=== PATIENT | male | born 1945 | race Caucasian/White ===

== ENCOUNTER 2020-04-04 15:26 | Emergency (ER) | payer MEDICARE, OTHER ==
--- NOTE | 2020-04-04 16:14 | REP ---
INDICATION: Altered Mental Status. COMPARISON: 10/31/2005. TECHNIQUE: SINGLE PORTABLE AP VIEW OF THE CHEST WAS PERFORMED. FINDINGS: Mild bibasilar interstitial opacities may represent mild fibrotic change or interstitial edema. No consolidating infiltrate is seen. There is mild cardiomegaly. Mediastinal silhouette is unremarkable with mild calcification of the thoracic aorta. There are multiple sternal wires present. Left pacemaker is noted. IMPRESSION: Mild bibasilar interstitial fibrotic change versus edema. <Electronically signed by Wayne Collier > 04/04/20 [id number]
[2020-04-04 16:15] LABS: BASO % 0.2 % (0.0-1.0); HEMATOCRIT 30.8 % (42.0-52.0); LYMPH # 0.6 10^3/uL (1.5-5.0); LYMPH % 2.5 % (24.0-44.0); MEAN CORPUSCULAR HEMOGLOBIN 30.7 pg (27.0-33.0); MEAN CORPUSCULAR HGB CONC 32.5 g/dl (32.0-36.5); MEAN CORPUSCULAR VOLUME 94.5 fl (80.0-96.0); MONO # 1.6 10^3/uL (0.0-0.8); MONO % 6.7 % (0.0-5.0); NEUTROPHILS # 21.5 10^3/uL (1.5-8.5); NEUTROPHILS % 89.8 % (36.0-66.0); PLATELET COUNT, AUTOMATED 171 10^3/uL (150-450); RED BLOOD COUNT 3.26 10^6/uL (4.30-6.10)
--- NOTE | 2020-04-04 16:18 | REP ---
INDICATION: altered loc. COMPARISON: None. TECHNIQUE: Helical scanning is acquired. 5 mm axial images were reformatted. Coronal MPR images were generated. FINDINGS: Bone window settings demonstrate an intact bony calvarium. There is no evidence of skull fracture or incidental bony calvarial lesion. The visualized paranasal sinuses appear clear. No intraorbital abnormality is seen. On soft tissue window setting images; the lateral, third, and fourth ventricles are normal in size and position. Collier-white differentiation pattern is normal above and below the tentorium. There are is no evidence of intracranial hemorrhage. No mass, edema, infarction, or midline shift is seen. No extra-axial fluid collection is appreciated. There is mild vascular calcification in the carotid siphons bilaterally. Mild generalized volume loss is observed. IMPRESSION: Mild volume loss and vascular calcification. Otherwise negative CT brain without contrast. No acute intracranial abnormality. <Electronically signed by Francis Roberts > 04/04/20 2405
[2020-04-04 16:19] LABS: ABG BASE EXCESS -5.6 (-2.0-2.0); ABG HCO3 17.3 MEQ/L (22.0-26.0); ABG O2 SATURATION 99.5 % (95.0-99.0); ABG PARTIAL PRESSURE CO2 26.3 mmHg (35.0-45.0); ABG STANDARD HCO3 19.9 MEQ/L (22.0-26.0); ABG TOTAL CO2 18.1 MEQ/L (23.0-31.0); ABG pH (ARTERIAL) 7.437 UNITS (7.350-7.450)
[2020-04-04 16:36] LABS: ACETAMINOPHEN LEVEL 4.9 UG/ML (10.0-30.0); ALBUMIN 2.8 GM/DL (3.2-5.2); ALT/SGPT 600 U/L (12-78); BILIRUBIN,DIRECT 2.1 MG/DL (0.0-0.2); BILIRUBIN,TOTAL 2.5 MG/DL (0.2-1.0); BLOOD UREA NITROGEN 50 MG/DL (7-18); CALCIUM LEVEL 8.5 MG/DL (8.8-10.2); CARBON DIOXIDE LEVEL 20 MEQ/L (21-32); CHLORIDE LEVEL 105 MEQ/L (98-107); CK-MB VALUE MASS < 1.0 NG/ML (<3.6); CPK CREATINE PHOSPHOKINASE 63 U/L (39-308); CREATININE FOR GFR 2.11 MG/DL (0.70-1.30); ETHYL ALCOHOL (ETHANOL) < 0.003 % (0.000-0.010); GLOMERULAR FILTRATION RATE 32.9 (>42); GLUCOSE, FASTING 135 MG/DL (70-100); MB/CK RELATIVE INDEX 1.59 (< OR =4); POTASSIUM SERUM 3.5 MEQ/L (3.5-5.1); SALICYLATE LEVEL < 1.7 MG/DL (5.0-30.0); SODIUM LEVEL 139 MEQ/L (136-145); TOTAL PROTEIN 5.5 GM/DL (6.4-8.2); TROPONIN I < 0.02 NG/ML (< 0.10)
[2020-04-04] MEDS ORDERED: CEFEPIME HCL 2 GM in D5W MINI-BAG PLUS 50 ML IV ONE (16:45)
[2020-04-04] MEDS ORDERED: NS 1,000 ML IV ONE (16:45)
[2020-04-04] MEDS ORDERED: LIDOCAINE 2% 5ML JELLY UROJET TOP ONE (16:45)
[2020-04-04] MEDS ORDERED: METF10004 PO (16:48)
[2020-04-04] MEDS ORDERED: TORS20TA2 PO ×2 (16:48)
[2020-04-04] MEDS ORDERED: SPIR-10 PO (16:48)
[2020-04-04] MEDS ORDERED: MAGN400T2 PO (16:48)
[2020-04-04] MEDS ORDERED: ATOR40TA75 PO (16:48)
[2020-04-04] MEDS ORDERED: ELIQ5TAB PO (16:48)
[2020-04-04] MEDS ORDERED: POTA20TA6 PO (16:48)
[2020-04-04] MEDS ORDERED: CARV12.5 PO (16:48)
[2020-04-04] MEDS ORDERED: ENTR1TAB PO ×2 (16:48)
[2020-04-04] MEDS ORDERED: NITR0.4S14 SL (16:48)
[2020-04-04 16:56] LABS: LIPASE 66 U/L (73-393)
[2020-04-04] MEDS ORDERED: NOREPINEPHRINE BITARTRATE 8 MG in D5W 492 ML IV SCH ×2 (17:55→18:28)
[2020-04-04] MEDS ORDERED: NS 3,060 ML in IV 1 EA IV ONE (18:00)
[2020-04-04] MEDS ORDERED: DOBUTamine 500 MG/250 ML BAG IN D5W (2,000 MCG/ML) (J1250) As Ordered ONE (18:08)
[2020-04-04 18:14] LABS: INR 2.42; PROTHROMBIN TIME 26.9 SECONDS (12.5-14.3)
[2020-04-04] MEDS ORDERED: DOBUTamine HCL 500,000 MCG in IV 1 EA IV SCH (18:15)
[2020-04-04] MEDS ORDERED: ASPI81TA26 PO (19:09)
--- NOTE | 2020-04-04 19:48 | REPVR ---
PROCEDURE INFORMATION: Exam: US Abdomen, Limited; Right Upper Quadrant Exam date and time: 04/04/2020 7:36 PM Age: 74 years old Clinical indication: Abdominal pain; Acute; Additional info: Ruq pain TECHNIQUE: Imaging protocol: US abdomen. Real time ultrasound with image documentation. Limited exam focused on the right upper quadrant. COMPARISON: No relevant prior studies available. FINDINGS: Liver: Normal. No masses. Gallbladder: 5 mm echogenic demonstrated on the mucosal surface of the gallbladder near the fundus. Finding may represent a cholesterol polyp or adherent calculus. Mild gallbladder wall thickening. Sludge demonstrated dependently within the gallbladder. Common bile duct: The common bile duct measures six mm. No mass or choledocholithiasis. Pancreas: Obscured by overlying bowel gas. Right kidney: Right kidney measures 12.8 x 6.1 x 6.6 cm. IMPRESSION: 1. 5 mm echogenic demonstrated on the mucosal surface of the gallbladder near the fundus. Finding may represent a cholesterol polyp or adherent calculus. Mild gallbladder wall thickening. Sludge demonstrated within the gallbladder. Clinical correlation to exclude cholecystitis suggested. 2. Nonvisualized pancreas. Electronically signed by: Manny Werner On 04/04/2020 19:49:06 PM
[2020-04-04 20:41] VITALS: BP 107/54
--- NOTE | 2020-04-05 09:28 | ECGEPIP ---
[facility] - ED Test Date: 2020-04-04 Pat Name: JOSSIE FOSTER Department: Room: - Gender: Male Physician Relations Manager: : 1945 Requested By: MEJIA HARRY Order Number: [id number] Reading MD: Rachel Mckinney Measurements Intervals [place] Rate: 77 P: 143 [place]: 116 QRS: 150 QRSD: 78 T: 91 QT: 361 QTc: 409 Interpretive Statements ELECTRONIC VENTRICULAR PACEMAKER POSSIBLE RIGHT VENTRICULAR HYPERTROPHY No prior Electronically Signed on 04-05-2020 9:28:12 EDT by Rachel Mckinney
== END 2020-04-04 20:43 | disposition short-term general hospital (02) ==
LOC: M ED 15:26
DX: K80.31 Calculus of bile duct with cholangitis, unspecified, with obstruction (principal); A41.9 Sepsis, unspecified organism; I51.9 Heart disease, unspecified; Z79.82 Long term (current) use of aspirin; Z79.84 Long term (current) use of oral hypoglycemic drugs; Z79.899 Other long term (current) drug therapy; Z95.1 Presence of aortocoronary bypass graft; Z95.0 Presence of cardiac pacemaker; Z87.891 Personal history of nicotine dependence
CPT/HCPCS: 36415; 36600; 70450; 71045; 76705; 80048; 80076; 82550; 82553; 82803; 83605; 83690; 84443; 84484; 85025; 85610; 93005; 93041; 96365; 96366; 96375; 99285; G0480; J0692

== ENCOUNTER 2020-04-19 23:20 | Inpatient (IN) | payer OTHER, MEDICARE ==
[~2020-04-19] VITALS: Ht 165.1 cm; Wt 100.2 kg
[~2020-04-19 23:20] MED LIST: ASPI81TA26 PO; ATOR40TA75 PO; CARV12.5 PO; ELIQ5TAB PO; ENTR1TAB PO; MAGN400T2 PO; METF10004 PO; NITR0.4S14 SL; POTA20TA6 PO; SPIR-10 PO; TORS20TA2 PO
[2020-04-20 00:40] VITALS: BP 113/61
[2020-04-20] MEDS ORDERED: PIPERACILLIN/TAZOBACTAM SOD 3.375 GM in D5W MINI-BAG PLUS 50 ML IV SCH (00:45)
[2020-04-20 01:31] LABS: BASO # 0.1 10^3/uL (0.0-0.2); BASO % 0.4 % (0.0-1.0); EOS # 0.2 10^3/uL (0.0-0.5); EOS % 1.4 % (0.0-3.0); HEMATOCRIT 32.2 % (42.0-52.0); HEMOGLOBIN 10.1 g/dl (13.5-17.5); LYMPH # 1.2 10^3/uL (1.5-5.0); LYMPH % 10.2 % (24.0-44.0); MEAN CORPUSCULAR HEMOGLOBIN 30.6 pg (27.0-33.0); MEAN CORPUSCULAR HGB CONC 31.4 g/dl (32.0-36.5); MEAN CORPUSCULAR VOLUME 97.6 fl (80.0-96.0); MONO # 1.3 10^3/uL (0.0-0.8); NEUTROPHILS % 76.7 % (36.0-66.0); PLATELET COUNT, AUTOMATED 316 10^3/uL (150-450); WHITE BLOOD COUNT 11.8 10^3/uL (4.0-10.0)
[2020-04-20 01:44] LABS: INR 1.53; PROTHROMBIN TIME 18.7 SECONDS (12.5-14.3)
[2020-04-20 01:46] LABS: PARTIAL THROMBOPLASTIN TIME 73.2 SECONDS (24.2-38.5)
[2020-04-20] MEDS ORDERED: OXYC-517 PO (01:54)
[2020-04-20] MEDS ORDERED: CARV3.12 PO (01:54)
[2020-04-20] MEDS ORDERED: POTA10TA17 PO (01:54)
[2020-04-20] MEDS ORDERED: ATOR80TA59 PO (01:54)
[2020-04-20 02:14] LABS: ALBUMIN 3.1 GM/DL (3.2-5.2); ALT/SGPT 28 U/L (12-78); AMYLASE 41 U/L (25-115); BILIRUBIN,TOTAL 1.1 MG/DL (0.2-1.0); BLOOD UREA NITROGEN 28 MG/DL (7-18); CALCIUM LEVEL 8.7 MG/DL (8.8-10.2); CARBON DIOXIDE LEVEL 29 MEQ/L (21-32); CHLORIDE LEVEL 99 MEQ/L (98-107); CK-MB VALUE MASS < 1.0 NG/ML (<3.6); CPK CREATINE PHOSPHOKINASE 49 U/L (39-308); CREATININE FOR GFR 1.18 MG/DL (0.70-1.30); GLOMERULAR FILTRATION RATE > 60.0 (>42); GLUCOSE, FASTING 134 MG/DL (70-100); LIPASE 105 U/L (73-393); MAGNESIUM LEVEL 1.6 MG/DL (1.8-2.4); MB/CK RELATIVE INDEX 2.04 (< OR =4); NT-PRO BNP 6154 PG/ML (<125); POTASSIUM SERUM 4.1 MEQ/L (3.5-5.1); SODIUM LEVEL 136 MEQ/L (136-145); TOTAL PROTEIN 6.6 GM/DL (6.4-8.2); TROPONIN I < 0.02 NG/ML (< 0.10)
--- NOTE | 2020-04-20 02:34 | REPVR ---
PROCEDURE INFORMATION: Exam: XR Chest, 2 Views Exam date and time: 04/20/2020 1:56 AM Age: 74 years old Clinical indication: Chest pain; Additional info: Abd pain TECHNIQUE: Imaging protocol: XR of the chest Views: 2 views. COMPARISON: [place] PORTABLE CHEST X-RAY 04/04/2020 3:44 PM FINDINGS: Tubes, catheters and devices: Stable left chest cardiac device. Lungs: There is prominence of the right hilum, stable from previous study. No airspace consolidation. Pleural space: Unremarkable. No pleural effusion. No pneumothorax. Heart/Mediastinum: Stable cardiomegaly. Vasculature: Aortic calcification. Bones/joints: Previous median sternotomy. IMPRESSION: No acute cardiopulmonary process. Electronically signed by: Aden Rivera On 04/20/2020 02:34:14 AM
--- NOTE | 2020-04-20 02:41 | HPEPDOC ---
[facility] Medical History & Physical Date of Admission Apr 20, 2020 Date of Service: Apr 20, 2020 Attending Physician: RICCO TINAJERO MD History and Physical CHIEF COMPLAINT: Abdominal pain HISTORY OF PRESENT ILLNESS: Patient is a 74-year-old male who presented to [facility] emergency department earlier today with worsening abdominal pain. Patient was at [facility] emergency department in March and was transferred down to [facility] as the patient was found to be septic secondary to ascending cholangitis. At [facility], a MRCP was performed which showed possibility of a stone or a mass blocking the end of the common bile duct. ERCP was performed and found a stone in the bile duct. Stone was removed. Patient was treated with antibiotics and did improve to the point where he could be discharged. Echocardiogram performed at that time showed the patient had an ejection fraction estimated to be 25%. Patient does have a history of congestive heart failure and has had a biventricular pacemaker and AICD placed. In talking with the patient, patient's abdominal pain has been worsening since his discharge from [facility]. Patient states that he has noticed the pain bec oming worse which is interfering with his eating. Patient states that he has not had any vomiting nor has he had any diarrhea. Patient was constipated and was given an enema well at [facility] and had 4 bowel movements while in the emergency department. Patient says his pain is about a 4/10 at this time he was given medication while at [facility] that help with the pain. Patient states that he is able to walk around on flat ground without any difficulty however, he does struggle to walk up a flight of stairs secondary to shortness of breath and pain in his legs. Patient states that this been going on for about a year now. Patient denies any chest pain at this time. Patient does take Eliquis for anticoagulation for atrial fibrillation. PAST MEDICAL HISTORY: 1. Heart failure with reduced ejection fraction with latest echo at the end of March showing EF of 25%. 2. Ascending cholangitis with ERCP. 3. Hypertension. 4. Type 2 diabetes 5. PVD PAST SURGICAL HISTORY: 1. ERCP. 2. Quadruple bypass surgery. 3. Biventricular pacemaker and AICD placement. SOCIAL HISTORY: Patient is a former smoker and quit in 1969. Patient used to drink alcohol but quit drinking about 15-16 years ago. Patient denies any history of illicit drug use or IV drug use. Patient served in the [employer] and was deployed to [place] during the [place] War. Patient currently lives alone and is retired. FAMILY HISTORY: Patient's mother of a heart attack. ALLERGIES: Please see below. REVIEW OF SYSTEMS: General: Patient denies fevers HEENT: Patient denies headaches Cardiovascular: Patient denies chest pain Respiratory: Patient reports shortness of breath with exertion like walking up the stairs. GI: Patient reports abdominal pain that is described above. Patient denies any nausea, vomiting, or diarrhea : Patient denies increased frequency or pain with urination Extremities: Patient reports swelling in his lower extremities bilaterally which is slightly worse than his baseline Neurological: Patient denies numbness or tingling in legs Skin: Patient denies any new rashes or lesions. Hematologic: Patient denies any easy bruising. Lymphatic: Patient denies any lumps lumps or bumps in neck, axilla, or groin HOME MEDICATIONS: Please see below. PHYSICAL EXAMINATION: VITAL SIGNS: See below General: Alert and oriented male patient who is laying in hospital bed, walked in the room. Patient did not appear to be in any acute distress HEENT: Normocephalic, atraumatic, moist mucous membranes. Neck: No lymphadenopathy or thyromegaly Cardiac: Regular rate and rhythm, no murmurs, normal S1, normal S2 Pulm: Bibasilar inspiratory crackles heard bilaterally Abd: Nondistended, tender to palpation especially of the right upper quadrant and right lower quadrant. Normal bowel sounds. No rebound tenderness Ext: 1+ pitting edema up to the level just below the knee in the bilateral legs Skin: No evidence of rash or other lesions LABORATORY DATA: See below. IMAGING: A CT of the abdomen and pelvis with IV contrast performed on 04/19/2020 at [facility] showed distended gallbladder with mild pericholecystic inflammation. There is a stent in the biliary duct as well as air within the ga llbladder. There are multiple small stone in the dependent portion of the gallbladder MICROBIOLOGY: Please see below. ASSESSMENT: Patient is a 74-year-old male who was a direct transfer from [facility] presented with acute right upper quadrant abdominal pain and was found to have cholecystitis. . PLAN: 1. Cholecystitis. Patient will be held nothing by mouth and given IV Zosyn for antibiotics. General surgery has been consult and Dr. Al will see the patient in the morning. At this time we will continue to monitor the patient. 2. Heart failure with reduced ejection fraction. Patient seems slightly fluid overloaded at this time is crackles in his bases of his lungs as well as putting edema in his bilateral lower extremities. I will give him a one-time dose of 40 mg of IV Lasix. We will need to speak with the patient's chronometer assembler and adjuster prior to optimizing the patient for surgical intervention. 3. Atrial fibrillation. Patient is on Eliquis which will be held at this time due to possible surgical intervention. Patient will need at least 24 hours off Eliquis prior to surgical intervention. 4. Type 2 diabetes. Patient will be on every 6 hours fingersticks and sliding scale insulin for the time being. 5. DVT prophylaxis: Teds and sequentials. CODE STATUS: Full code Vital Signs Vital Signs Date Time Temp Pulse Resp B/P (MAP) Pulse Ox O2 Delivery O2 Flow Rate FiO2 04/20/20 00:40 97.6 78 20 113/61 (78) 99 Room Air Laboratory Data Labs 24H Laboratory Tests 2 04/20/20 01:18: Immature Granulocyte % (Auto) 0.3, Neutrophils (%) (Auto) 76.7H, Lymphocytes (%) (Auto) 10.2L, Monocytes (%) (Auto) 11.0H, Eosinophils (%) (Auto) 1.4, Basophils (%) (Auto) 0.4, Neutrophils # (Auto) 9.0H, Lymphocytes # (Auto) 1.2L, Monocytes # (Auto) 1.3H, Eosinophils # (Auto) 0.2, Basophils # (Auto) 0.1, Nucleated Red Blood Cells % (auto) 0.0, Prothrombin Time 18.7H, Prothromb Time International Ratio 1.53, Activated Partial Thromboplast Time 73.2H, Anion Gap 8, Glomerular Filtration Rate > 60.0, Lactic Acid Level 1.8, Calcium Level 8.7L, Magnesium Level 1.6L, Total Bilirubin 1.1H, Aspartate Amino Transf (AST/SGOT) 13, Alanine Aminotransferase (ALT/SGPT) 28, Alkaline Phosphatase 179H, Total Creatine Kinase 49, Creatine Kinase MB < 1.0, Creatine Kinase MB Relative Index 2.04, Troponin I < 0.02, C-Reactive Protein, Quantitative 10.90H, XG-Dqq-[id number]-Type Natriuretic Peptide 6154H, Total Protein 6.6, Albumin 3.1L, Albumin/Globulin Ratio 0.9, Amylase Level 41, Lipase 105 CBC/BMP Laboratory Tests 04/20/20 01:18 Home Medications Scheduled Apixaban (Eliquis) 5 Mg Tablet, 5 MG PO BID Aspirin (Aspirin EC) 81 Mg Tablet.dr, 81 MG PO DAILY Atorvastatin Calcium (Atorvastatin Calcium) 80 Mg Tablet, 80 MG PO DAILY DOSE INCREASED AT [facility] Carvedilol (Carvedilol) 3.125 Mg Tablet, 3.125 MG PO BID DOSE LOWERED AT [facility] Magnesium Oxide (Magnesium Oxide) 400 Mg Tablet, 400 MG PO TID Metformin HCl (Metformin HCl) 1,000 Mg Tablet, 1,000 MG PO BID Potassium Chloride (Potassium Chloride) 10 Meq Tab.er.prt, 20 MEQ PO DAILY Sacubitril/Valsartan (Entresto 24 mg-26 mg Tablet) 1 Each Tablet, 1 TAB PO DAILY Sacubitril/Valsartan (Entresto 24 mg-26 mg Tablet) 1 Each Tablet, 0.5 TAB PO QHS Spironolactone (Spironolactone) 25 Mg Tablet, 12.5 MG PO DAILY Torsemide (Torsemide) 20 Mg Tablet, 20 MG PO 2XW SATURDAY AND SATURDAY Torsemide (Torsemide) 20 Mg Tablet, 40 MG PO 5XW SATURDAY, SATURDAY, SATURDAY, SATURDAY, AND SATURDAY Scheduled PRN Nitroglycerin (Nitroglycerin) 0.4 Mg Tab.subl, 0.4 MG SL NITRO PRN for CHEST ITZEL N Oxycodone HCl (Oxycodone HCl) 5 Mg Tablet, 5 MG PO Q4H PRN for PAIN Allergies Coded Allergies: No Known Allergies (Verified Allergy, Unknown, 04/04/20) A-FIB/CHADSVASC A-FIB History Current/History of A-Fib/PAF?: Yes Current PO Anticoag Therapy: Yes GME ATTESTATION GME ATTESTATION My faculty preceptor for this patient encounter was physically present during the encounter and was fully available. All aspects of the patient interview, examination, medical decision making process, and medical care plan development were reviewed and approved by the faculty preceptor. The faculty preceptor is aware and concurs with the plan as stated in the body of this note and will attest to such by his/her cosignature. ATTENDING NOTE I have independently interviewed and examined the patient, and agree with the physical findings, assessment and management plan as documented by my Resident Physician. The patient's questions and concerns have been satisfactorily addressed, and patient was encouraged to contact our office at [phone] for any new additional questions. GABRIELA DINERO DO Apr 20, 2020 02:41 RICCO TINAJERO MD Apr 20, 2020 06:24
[2020-04-20] MEDS ORDERED: FUROSEMIDE 40MG/4ML VIAL (J1940) IV ONE (02:45)
[2020-04-20] MEDS ORDERED: GLUCOSE 4GM CHEW TABLET PO PRN (02:45)
[2020-04-20] MEDS ORDERED: DEXTROSE 50% 50 ML SYRINGE IV PRN (02:45)
[2020-04-20] MEDS ORDERED: GLUCAGON INJ 1MG VIAL SC PRN (02:45)
[2020-04-20] MEDS ORDERED: PERCOCET 5MG/325MG TAB PO PRN (03:00)
[2020-04-20] MEDS ORDERED: ONDANSETRON 4MG/2ML VIAL IV PRN (03:00)
[2020-04-20] MEDS ORDERED: MORPHINE 2 MG/ML 1ML VIAL (J2270) IV PRN (03:00)
[2020-04-20] MEDS ORDERED: ACETAMINOPHEN TAB 650MG DOSE (2X325MG) PO PRN (03:00)
[2020-04-20] MEDS ORDERED: PILL CUTTER 1 EACH XX PRN (03:45)
[2020-04-20] MEDS: oxyCODONE 5MG TAB PO PRN ×3 (03:46→21:07)
[2020-04-20] MEDS: PIPERACILLIN/TAZOBACTAM SOD 3.375 GM in D5W MINI-BAG PLUS 50 ML IV SCH ×4 (05:36→23:18)
[2020-04-20 06:00] VITALS: BP 119/61
[2020-04-20] MEDS: HumaLOG INSULIN (NovoLOG) PER UNIT SC SCH ×4 (06:00→21:00)
[2020-04-20 08:04] LABS: ERYTHROCYTE SEDIMENTATION RATE 95 mm/hr (0-20)
[2020-04-20] MEDS: ATORVASTATIN 20 MG TAB PO SCH (11:48)
[2020-04-20] MEDS: ASPIRIN 81 MG ENTERIC TAB PO SCH (11:48)
[2020-04-20] MEDS: ENTRESTO 24-26MG TABLET (SACUBITRIL/VALSARTAN) PO SCH ×2 (11:48→20:23)
[2020-04-20] MEDS: MAGNESIUM OXIDE 400 MG TAB (MAG-OX) PO SCH ×3 (11:48→20:23)
[2020-04-20] MEDS: SPIRONOLACTONE 12.5MG PER 1/2 TABLET PO SCH (11:49)
[2020-04-20] MEDS: CARVedilol 3.125 MG TAB PO SCH ×2 (11:54→20:31)
--- NOTE | 2020-04-20 13:51 | IPNPDOC ---
Text Note Date of Service The patient was seen on 04/20/20. NOTE Subjective: No any acute events overnight. Patient stated that he is mild right epigastric pain. Objective: GENERAL APPEARANCE: NAD HEENT: no scleral icterus, plus JVD, EOMI CARDIOVASCULAR: Irregularly irregular LUNGS: Mild crackles in by his ABDOMEN: soft & not tender w palpitation MUSCULOSKELETAL: +1 pitting edema of lower extremities INTEGUMENT: no generalized palor NEUROLOGICAL: cranial nerve function from 2-12 intact intact, follows commands, speech not dysarthric Assessment and plan Patient is a 74-year-old male who was a direct transfer [facility] pre sented with acute right upper quadrant abdominal pain and was found to have cholecystitis. Acute cholecystitis I talked Dr. Al, we will postpone surgery for 3 days due to the last dose of Eliquis yesterday on 04/19/20 Continue Zosyn IV Acute systolic CHF Patient has plus JVD, elevated BNP around 6000 Started Lasix IV Appreciate/agree with sash clamp operator consult Atrial fibrillation Heart rate under control Eliquis on hold Type 2 diabetes Insulin sliding scale Diabetes diet VS,Fishbone, I+O VS, Fishbone, I+O Laboratory Tests 04/20/20 01:18 Vital Signs Date Time Temp Pulse Resp B/P (MAP) Pulse Ox O2 Delivery O2 Flow Rate FiO2 04/20/20 11:54 75 118/61 04/20/20 11:49 20 04/20/20 06:00 97.8 98 04/20/20 04:16 Room Air I&O- Last 24 Hours up to 6 AM 04/20/20 06:00 Intake Total 0 ml Output Total 1000 ml Balance -1000 ml ROBBI LIN DO Apr 20, 2020 13:51
[2020-04-20 14:00] VITALS: BP 113/49
[2020-04-20] MEDS ORDERED: HumaLOG INSULIN (NovoLOG) PER UNIT SC SCH (14:00)
[2020-04-20] MEDS ORDERED: NITROGLYCERIN 0.4 MG SUBL TABLET SL PRN (14:00)
[2020-04-20] MEDS: POTASSIUM CHLORIDE 10 MEQ SR TABLET PO SCH (14:31)
--- NOTE | 2020-04-20 17:11 | ECGEPIP ---
[facility] Test Date: 2020-04-20 Pat Name: JOSSIE FOSTER Department: Room: [place] [address] Gender: Male Bindery Machine Setter/Set Up Operator: KAMLA : 1945 Requested By: RICCO Gore Order Number: [id number] Reading MD: Edwardo Machuca Measurements Intervals [place] Rate: 74 P: [place]: 0 QRS: 193 QRSD: 195 T: 54 QT: 485 QTc: 539 Interpretive Statements I believe the underlying rhythm is atrial fibrillation 100% paced ventricular complexes No significant change from prior tracing of 04/04/2020 Electronically Signed on 04-20-2020 17:11:22 EST by Edwardo Machuca
[2020-04-20] MEDS: FUROSEMIDE 40MG/4ML VIAL (J1940) IV SCH (17:47)
[2020-04-20 22:00] VITALS: BP 100/50
[2020-04-21] MEDS: oxyCODONE 5MG TAB PO PRN (03:35)
[2020-04-21] MEDS: PIPERACILLIN/TAZOBACTAM SOD 3.375 GM in D5W MINI-BAG PLUS 50 ML IV SCH ×4 (05:45→23:55)
[2020-04-21 06:00] VITALS: BP 124/52
[2020-04-21 06:33] LABS: BASO # 0.1 10^3/uL (0.0-0.2); BASO % 0.6 % (0.0-1.0); EOS # 0.2 10^3/uL (0.0-0.5); EOS % 2.1 % (0.0-3.0); HEMATOCRIT 26.5 % (42.0-52.0); HEMOGLOBIN 8.6 g/dl (13.5-17.5); LYMPH % 9.8 % (24.0-44.0); MEAN CORPUSCULAR HEMOGLOBIN 31.2 pg (27.0-33.0); MEAN CORPUSCULAR HGB CONC 32.5 g/dl (32.0-36.5); MONO # 1.4 10^3/uL (0.0-0.8); MONO % 13.3 % (0.0-5.0); NEUTROPHILS # 7.6 10^3/uL (1.5-8.5); NEUTROPHILS % 73.5 % (36.0-66.0); PLATELET COUNT, AUTOMATED 273 10^3/uL (150-450); RED BLOOD COUNT 2.76 10^6/uL (4.30-6.10); WHITE BLOOD COUNT 10.3 10^3/uL (4.0-10.0)
[2020-04-21 06:59] LABS: ALBUMIN 2.6 GM/DL (3.2-5.2); BILIRUBIN,TOTAL 0.8 MG/DL (0.2-1.0); CALCIUM LEVEL 8.9 MG/DL (8.8-10.2); CREATININE FOR GFR 1.58 MG/DL (0.70-1.30); MAGNESIUM LEVEL 1.8 MG/DL (1.8-2.4); POTASSIUM SERUM 3.9 MEQ/L (3.5-5.1); TOTAL PROTEIN 6.5 GM/DL (6.4-8.2)
[2020-04-21] MEDS: ENTRESTO 24-26MG TABLET (SACUBITRIL/VALSARTAN) PO SCH ×2 (08:58→21:21)
[2020-04-21] MEDS: MAGNESIUM OXIDE 400 MG TAB (MAG-OX) PO SCH ×3 (08:59→21:20)
[2020-04-21] MEDS: POTASSIUM CHLORIDE 10 MEQ SR TABLET PO SCH (08:59)
[2020-04-21] MEDS: ASPIRIN 81 MG ENTERIC TAB PO SCH (08:59)
[2020-04-21] MEDS: ATORVASTATIN 20 MG TAB PO SCH (08:59)
[2020-04-21] MEDS: SPIRONOLACTONE 12.5MG PER 1/2 TABLET PO SCH (09:00)
[2020-04-21] MEDS: CARVedilol 3.125 MG TAB PO SCH ×2 (09:00→21:00)
[2020-04-21] MEDS: FUROSEMIDE 40MG/4ML VIAL (J1940) IV SCH (09:00)
[2020-04-21] MEDS ORDERED: FLUBLOK(EGG FREE)(QUAD)INFLUENZA VACC 0.5ML SYRINGE 18YRS & OLDER IM ONE (09:00)
[2020-04-21] MEDS: HumaLOG INSULIN (NovoLOG) PER UNIT SC SCH ×4 (09:04→21:00)
--- NOTE | 2020-04-21 12:43 | IPNPDOC ---
Text Note Date of Service The patient was seen on 04/21/20. NOTE Subjective: No any acute events overnight. Patient denied fever, chills, nausea, vomiting, diarrhea or dysuria Objective: GENERAL APPEARANCE: NAD HEENT: no scleral icterus, plus JVD, EOMI CARDIOVASCULAR: Irregularly irregular LUNGS: Mild crackles in by his ABDOMEN: soft & not tender w palpitation MUSCULOSKELETAL: +1 pitting edema of lower extremities INTEGUMENT: no generalized palor NEUROLOGICAL: cranial nerve function from 2-12 intact intact, follows commands, speech not dysarthric Assessment and plan Patient is a 74-year-old male who was a direct transfer from [facility] presented with acute right upper quadrant abdominal pain and was found to have cholecystitis. Acute cholecystitis I talked Dr. Al, we will postpone surgery for 3 days due to the last dose of Eliquis on 04/19/20 Continue Zosyn IV Acute systolic CHF Patient has plus JVD, elevated BNP around 6000 Started Lasix IV Appreciate/agree with calender runner consult Atrial fibrillation Heart rate under control Eliquis on hold Type 2 diabetes Insulin sliding scale Diabetes diet VS,Fishbone, I+O VS, Fishbone, I+O Laboratory Tests 04/21/20 05:48 Vital Signs Date Time Temp Pulse Resp B/P (MAP) Pulse Ox O2 Delivery O2 Flow Rate FiO2 04/21/20 09:00 73 90/44 04/21/20 06:00 98.7 18 99 Room Air I&O- Last 24 Hours up to 6 AM 04/21/20 06:00 Intake Total 1220 ml Output Total 1800 ml Balance -580 ml ROBBI LIN DO Apr 21, 2020 12:43
[2020-04-21 14:00] VITALS: BP 86/40
[2020-04-21] MEDS ORDERED: NS 500 ML IV ONE (14:00)
[2020-04-21] MEDS ORDERED: HEPARIN DRIP 25,000 UNITS in IV 1 EA IV SCH ×2 (14:51→15:30)
[2020-04-21] MEDS ORDERED: CLOPIDOGREL 300 MG TAB (PLAVIX) PO STA (14:51)
[2020-04-21 15:00] VITALS: BP 108/62
[2020-04-21] MEDS ORDERED: HEPARIN SOD (PORCINE) 5000UNITS/ML 1ML VIAL/SYRINGE IV ONE (15:15)
[2020-04-21] MEDS ORDERED: HEPARIN SOD (PORCINE) 5000UNITS/ML 1ML VIAL/SYRINGE IV PRN (15:15)
[2020-04-21 15:48] LABS: CK-MB VALUE MASS < 1.0 NG/ML (<3.6); CPK CREATINE PHOSPHOKINASE 38 U/L (39-308); MB/CK RELATIVE INDEX 2.63 (< OR =4); TROPONIN I < 0.02 NG/ML (< 0.10)
[2020-04-21 16:00] VITALS: BP 106/58
[2020-04-21 20:00] VITALS: BP 108/53
[2020-04-21 21:31] LABS: INR 1.34; PROTHROMBIN TIME 16.9 SECONDS (12.5-14.3)
[2020-04-21 21:54] LABS: PARTIAL THROMBOPLASTIN TIME > 240.0 SECONDS (24.2-38.5)
[2020-04-22] VITALS (12 sets, daily range): BP systolic 98–148; BP diastolic 50–74
[2020-04-22] MEDS: PIPERACILLIN/TAZOBACTAM SOD 3.375 GM in D5W MINI-BAG PLUS 50 ML IV SCH ×4 (05:25→22:41)
[2020-04-22 06:04] LABS: BASO # 0.1 10^3/uL (0.0-0.2); BASO % 0.6 % (0.0-1.0); EOS # 0.5 10^3/uL (0.0-0.5); EOS % 6.2 % (0.0-3.0); HEMATOCRIT 25.8 % (42.0-52.0); LYMPH # 1.5 10^3/uL (1.5-5.0); MEAN CORPUSCULAR HEMOGLOBIN 30.4 pg (27.0-33.0); MEAN CORPUSCULAR VOLUME 98.1 fl (80.0-96.0); MONO # 1.2 10^3/uL (0.0-0.8); MONO % 14.3 % (0.0-5.0); NEUTROPHILS # 4.9 10^3/uL (1.5-8.5); NEUTROPHILS % 60.2 % (36.0-66.0); PLATELET COUNT, AUTOMATED 262 10^3/uL (150-450); RED BLOOD COUNT 2.63 10^6/uL (4.30-6.10); WHITE BLOOD COUNT 8.1 10^3/uL (4.0-10.0)
[2020-04-22 06:07] LABS: ALBUMIN 2.5 GM/DL (3.2-5.2); BILIRUBIN,TOTAL 0.5 MG/DL (0.2-1.0); CALCIUM LEVEL 8.4 MG/DL (8.8-10.2); CREATININE FOR GFR 1.54 MG/DL (0.70-1.30); GLOMERULAR FILTRATION RATE 47.4 (>42); MAGNESIUM LEVEL 1.8 MG/DL (1.8-2.4)
[2020-04-22] MEDS: HumaLOG INSULIN (NovoLOG) PER UNIT SC SCH ×4 (07:30→20:58)
[2020-04-22] MEDS: SPIRONOLACTONE 12.5MG PER 1/2 TABLET PO SCH (08:27)
[2020-04-22] MEDS: FUROSEMIDE 40MG/4ML VIAL (J1940) IV SCH (08:28)
[2020-04-22] MEDS: MAGNESIUM OXIDE 400 MG TAB (MAG-OX) PO SCH ×3 (08:28→20:48)
[2020-04-22] MEDS: ASPIRIN 81 MG ENTERIC TAB PO SCH (08:28)
[2020-04-22] MEDS: POTASSIUM CHLORIDE 10 MEQ SR TABLET PO SCH (08:28)
[2020-04-22] MEDS: CARVedilol 3.125 MG TAB PO SCH ×2 (08:31→20:48)
[2020-04-22] MEDS: ENTRESTO 24-26MG TABLET (SACUBITRIL/VALSARTAN) PO SCH ×2 (08:32→20:48)
[2020-04-22] MEDS: ATORVASTATIN 20 MG TAB PO SCH (08:33)
[2020-04-22] MEDS ORDERED: ACETAMINOPHEN 1000MG 100ML IV BTL (OFIRMEV) (J0131 PER 10MG) As Ordered ONE (09:33)
[2020-04-22] MEDS ORDERED: fentaNYL 100 MCG/2 ML INJECTION (J3010) As Ordered ONE ×3 (09:33→17:41)
[2020-04-22] MEDS ORDERED: ROCURONIUM BROMIDE 50 MG/5 ML VIAL As Ordered ONE ×2 (09:33→15:54)
[2020-04-22] MEDS ORDERED: SUGAMMADEX SODIUM 500 MG/5 ML VIAL (BRIDION) As Ordered ONE (09:33)
[2020-04-22] MEDS ORDERED: propofoL 200 MG/20 ML VIAL As Ordered ONE (09:33)
[2020-04-22] MEDS ORDERED: dexameTHASONE 4 MG/ML 1ML VIAL (J1100 PER 1MG) As Ordered ONE (09:33)
[2020-04-22] MEDS ORDERED: ONDANSETRON 4MG/2ML VIAL As Ordered ONE (09:33)
[2020-04-22] MEDS ORDERED: KETOROLAC 60MG 2ML VIAL As Ordered ONE (09:33)
[2020-04-22] MEDS ORDERED: MIDAZOLAM INJ 2MG/2ML VIAL (J2250 PER 1MG) As Ordered ONE (09:33)
[2020-04-22] MEDS ORDERED: LIDOCAINE 2% 100MG/5ML SDV (FOR ANES.) As Ordered ONE (09:33)
[2020-04-22] MEDS ORDERED: BUPIVACAINE HCL 0.25% 30ML VIAL As Ordered ONE (10:29)
--- NOTE | 2020-04-22 10:31 | IPNPDOC ---
Text Note Date of Service The patient was seen on 04/22/20. NOTE Subjective: No any acute events overnight. Patient denied fever, chest pain, palpitations, chills, nausea, vomiting, diarrhea or dysuria Objective: GENERAL APPEARANCE: NAD HEENT: no scleral icterus, plus JVD, EOMI CARDIOVASCULAR: Irregularly irregular LUNGS: Mild crackles in by his ABDOMEN: soft & not tender w palpitation MUSCULOSKELETAL: +1 pitting edema of lower extremities INTEGUMENT: no generalized palor NEUROLOGICAL: cranial nerve function from 2-12 intact intact, follows commands, speech not dysarthric Assessment and plan Patient is a 74-year-old male who was a direct transfer from [facility] presented with acute right upper quadrant abdominal pain and was found to have cholecystitis. Acute cholecystitis Plan for surgery today Dr. Michel clear the patient for surgery Continue Zosyn IV Acute systolic CHF Patient has plus JVD, elevated BNP around [address] Michel follows him Await echo report Atrial fibrillation Heart rate under control Eliquis on hold Type 2 diabetes Insulin sliding scale Diabetes diet VS,Fishbone, I+O VS, Fishbone, I+O Laboratory Tests 04/22/20 05:07 Vital Signs Date Time Temp Pulse Resp B/P (MAP) Pulse Ox O2 Delivery O2 Flow Rate FiO2 04/22/20 08:31 72 98/52 04/22/20 08:00 97.7 18 95 Room Air 04/22/20 00:00 2.0 I&O- Last 24 Hours up to 6 AM 04/22/20 06:00 Intake Total 1020 ml Output Total 625 ml Balance 395 ml ROBBI LIN DO Apr 22, 2020 10:31
--- NOTE | 2020-04-22 11:04 | CR ---
DATE OF CONSULTATION: 04/20/2020 HISTORY OF PRESENT ILLNESS: The patient is a 74-year-old man transferred to [facility] from [facility] for treatment of right upper quadrant abdominal pain. The patient had been seen at the Emergency Department at [facility] on the 04 of April. He had presented with reports of a period of hypotension. His workup revealed a marked elevation of his white blood cell to 24,000 with a left shift. Liver function tests were markedly elevated with an AST of 875, ALT 600, alkaline phosphatase of 339 and a total bilirubin of 2.5. His lactic acid was elevated. Imaging showed on ultrasound a 5 mm echogenic focus on the inner wall of the gallbladder near the fundus consistent with a cholesterol polyp or adherent dome. There was some mild gallbladder wall thickening with some sludge noted. His clinical picture was felt to be consistent with choledocholithiasis with cholangitis. Because of an absence of gastroenterology support at that time, the patient was transferred directly to [facility] in [place]. He apparently did undergo an ERCP with removal of a common bile duct stone. A stent was placed. He reports that he remained in the hospital in [place] on antibiotics for about a week and was then discharged. The patient had been home about a week. He reported that his upper abdominal discomfort had largely resolved while at [facility]. Over the last couple of days it had increased slightly. He presented at [facility] on the complaining of increasing pain. He denied any nausea or vomiting. At [facility] he underwent a CT scan that showed a distended gallbladder with some pericholecystic inflammation. A biliary stent was noted as well as air within the gallbladder. His liver functions were found to be normal but he had right upper quadrant subcostal tenderness. His white blood cell count was mildly elevated. Because of his significant pain with known gallstones and recent cholangitis his history was felt to be consistent with acute cholecystitis. He was transferred to [facility] for further evaluation and possible treatment. ALLERGIES: The patient reports no known allergies. MEDICATIONS: His medications prior to admission include: 1. Eliquis 5 mg p.o. twice daily. 2. Aspirin. 3. Atorvastatin. 4. Carvedilol. 5. Magnesium oxide. 6. Metformin. 7. Nitroglycerin p.r.n. 8. Oxycodone p.r.n. 9. Potassium chloride daily. 10. Entresto one tablet daily in the morning and half a tablet in the evening. 11. Spironolactone. 12. Torsemide. MEDICAL HISTORY: Significant for: 1. Atrial fibrillation. 2. History of heart failure and apparently had an echocardiogram in [place] during his recent stay that suggested an ejection fraction of approximately 25%. 3. Hypertension. 4. Type 2 diabetes. 5. Atherosclerotic coronary artery disease and is status post a bypass. 6. He has had a recent episode of choledocholithiasis with cholangitis. SURGICAL HISTORY: 1. He had a recent ERCP with stent placement. 2. Coronary artery bypass grafting within the last few years. 3. Pacemaker with defibrillator implanted. SOCIAL HISTORY: The patient is a nonsmoker. He denies any significant alcohol intake currently. Patient currently lives alone. He is a [employer] . FAMILY HISTORY: His mother apparently succumbed to a heart attack. REVIEW OF SYSTEMS: The patient has not had any recent chest pain. His recent pain has been primarily in the right subcostal area. He does get some exertional shortness of breath. He has not been having any diarrhea and denies any melena or hematochezia. He is not having any dysuria or hematuria. He has been having some swelling in his lower extremities. There is no history of neurologic symptoms. PHYSICAL EXAMINATION: The patient is an elderly appearing man lying quietly on the hospital bed. He is alert and responsive and appropriate when I came in. He appears moderately obese. Skin is warm and dry. Sclera anicteric. Mucous membranes are moist. The neck is supple without mass. Heart exam shows an irregular rhythm. There is a pacemaker palpable in the left infraclavicular fossa. Lungs show some clear breath sounds bilaterally. The abdomen is nondistended but obese. He has bowel sounds present. He has no abdominal scars. There is some mild to moderate direct tenderness in the lateral aspect of the right subcostal area. No definite mass is appreciated. There is no definite guarding or rebound. The remainder of the abdomen is without significant tenderness. Extremities show some chronic appearing edema in the lower legs bilaterally. LABORATORY STUDIES: Laboratory studies from early this morning shows a white count of 12, hematocrit 32, hemoglobin of 10 and a platelet count of 316,000. Differential count showed 77% neutrophils, 10% lymphocytes and 11% monocytes. Chemistry profile showed normal electrolytes with a BUN of 28, creatinine of 1.18 and a glucose of 134. Magnesium is low at 1.6. Total bilirubin is slightly elevated at 1.1. AST and ALT are normal with an alkaline phosphatase that is slightly above the upper limit of normal. He had a troponin less than 0.02. C- reactive protein was 10.9 and his BNP was 6154 which is quite elevated. His pro- Thrombin time was elevated at 18.7 with a PTT of 73 and an INR of 1.53. He had a SARS COVID test that was negative. IMPRESSION: 1. Right upper quadrant pain with history consistent with acute cholecystitis. 2. Recent choledocholithiasis with cholangitis treated by ERCP and stenting. 3. Congestive heart failure. 4. Atrial fibrillation. 5. Hypertension. 6. Diabetes mellitus. RECOMMENDATIONS: The patients history and exam I think are consistent with acute cholecystitis. He has known gallstones which led to a recent attack of choledocholithiasis with cholangitis. He had an ERCP with removal of a common bile duct stone and stenting approximately two weeks ago. He does have some distention and gallbladder wall thickening on his current CT. Because his LFTs are normal, this is not consistent with a recurrent common bile duct stone and the common bile stent although not perfect showed protect him against recurrent obstruction. His treatment should include a cholecystectomy whenever it is clear that his medical issues are optimized. He does have a history of congestive heart failure and reportedly had an echocardiogram in [place] showing an ejection fraction of only 25% recently. His BNP is quite elevated this morning. It may be that it will take some time for his cardiac status to be optimized. He should remain on antibiotics for now. Once his condition is at its best, we could consider proceeding with a laparoscopic cholecystectomy. Certainly, his Eliquis would need to be held to allow us to proceed. CRISTIAN
[2020-04-22] MEDS ORDERED: ETOMIDATE INJ 20MG/10ML VIAL As Ordered ONE (14:07)
[2020-04-22] MEDS ORDERED: SLF 3 ML SYR IV PRN (15:15)
--- NOTE | 2020-04-22 15:29 | ECGEPIP ---
[facility] Test Date: 2020-04-21 Pat Name: JOSSIE FOSTER Department: Room: [place] [address] Gender: Male Diamond Picker: [id number] : [id number] Requested By: ROBBI LIN Order Number: [id number] Reading MD: Edwardo Machuca Measurements Intervals [place] Rate: 69 P: 138 ME: 113 QRS: 132 QRSD: 72 T: 84 QT: 367 QTc: 395 Interpretive Statements Atrial fibrillation with paced ventricular complexes No significant change since prior tracing of 04/20/2020 Electronically Signed on 04-22-2020 15:29:15 EST by Edwardo Machuca
[2020-04-22] MEDS ORDERED: ZOSYN 3.375GM VIAL (J2543) As Ordered ONE (17:31)
[2020-04-22] MEDS ORDERED: fentaNYL 100 MCG/2 ML INJECTION (J3010) IV PRN (18:00)
[2020-04-22] MEDS ORDERED: LR 1,000 ML IV SCH (18:00)
[2020-04-22] MEDS ORDERED: HumaLOG INSULIN (NovoLOG) PER UNIT SC ONE ×3 (18:00→19:00)
[2020-04-22] MEDS ORDERED: oxyCODONE 5MG TAB PO PRN (18:00)
[2020-04-22] MEDS ORDERED: ONDANSETRON 4MG/2ML VIAL IV PRN (18:00)
[2020-04-22] MEDS: SLF 3 ML SYR IV SCH (20:49)
[2020-04-22] MEDS: oxyCODONE 5MG TAB PO PRN (21:49)
[2020-04-23] MEDS: SLF 3 ML SYR IV SCH ×3 (04:09→20:17)
[2020-04-23] MEDS: PIPERACILLIN/TAZOBACTAM SOD 3.375 GM in D5W MINI-BAG PLUS 50 ML IV SCH ×4 (04:09→23:43)
[2020-04-23 04:10] VITALS: BP 107/55
[2020-04-23] MEDS: oxyCODONE 5MG TAB PO PRN ×2 (04:15→16:15)
[2020-04-23 06:49] LABS: BASO % 0.1 % (0.0-1.0); HEMATOCRIT 28.1 % (42.0-52.0); HEMOGLOBIN 8.9 g/dl (13.5-17.5); LYMPH # 0.5 10^3/uL (1.5-5.0); LYMPH % 5.4 % (24.0-44.0); MEAN CORPUSCULAR HEMOGLOBIN 30.7 pg (27.0-33.0); MEAN CORPUSCULAR HGB CONC 31.7 g/dl (32.0-36.5); MEAN CORPUSCULAR VOLUME 96.9 fl (80.0-96.0); MONO # 0.8 10^3/uL (0.0-0.8); MONO % 8.8 % (0.0-5.0); NEUTROPHILS # 7.7 10^3/uL (1.5-8.5); NEUTROPHILS % 84.9 % (36.0-66.0); PLATELET COUNT, AUTOMATED 296 10^3/uL (150-450)
[2020-04-23 07:07] LABS: ALBUMIN 2.8 GM/DL (3.2-5.2); BILIRUBIN,TOTAL 0.8 MG/DL (0.2-1.0); CREATININE FOR GFR 1.5 MG/DL (0.70-1.30); GLOMERULAR FILTRATION RATE 48.8 (>42); MAGNESIUM LEVEL 2.3 MG/DL (1.8-2.4); POTASSIUM SERUM 4.8 MEQ/L (3.5-5.1); TOTAL PROTEIN 6.5 GM/DL (6.4-8.2)
[2020-04-23 08:00] VITALS: BP 116/53
[2020-04-23] MEDS: MAGNESIUM OXIDE 400 MG TAB (MAG-OX) PO SCH ×3 (08:17→20:16)
[2020-04-23] MEDS: CARVedilol 3.125 MG TAB PO SCH ×2 (08:18→20:16)
[2020-04-23] MEDS: SPIRONOLACTONE 12.5MG PER 1/2 TABLET PO SCH (08:18)
[2020-04-23] MEDS: ATORVASTATIN 20 MG TAB PO SCH (08:18)
[2020-04-23] MEDS: FUROSEMIDE 40MG/4ML VIAL (J1940) IV SCH (08:19)
[2020-04-23] MEDS: POTASSIUM CHLORIDE 10 MEQ SR TABLET PO SCH (08:19)
[2020-04-23] MEDS: ASPIRIN 81 MG ENTERIC TAB PO SCH (08:19)
[2020-04-23] MEDS: ENTRESTO 24-26MG TABLET (SACUBITRIL/VALSARTAN) PO SCH ×2 (08:19→20:16)
[2020-04-23] MEDS: HumaLOG INSULIN (NovoLOG) PER UNIT SC SCH ×4 (08:20→20:16)
--- NOTE | 2020-04-23 08:37 | IPNPDOC ---
Text Note Date of Service The patient was seen on 04/23/20. NOTE No acute events overnight. He is tolerating diet. No problems with nausea, e mesis, or fevers Pain is in the RUQ only and is improved. VSSAF NAD abd - soft, TTP appropriate, incisions c/d/i, drain is serosanguinous labs - below A) 74y/o male s/p lap sabina for acute cholecystitis P) reg diet amb in halls abx monitor drain stable for d/c once cleared by medicine Carl Acosta DO VS,Fishbone, I+O VS, Fishbone, I+O Laboratory Tests 04/23/20 06:06 Vital Signs Date Time Temp Pulse Resp B/P (MAP) Pulse Ox O2 Delivery O2 Flow Rate FiO2 04/23/20 08:18 70 116/53 04/23/20 04:45 18 04/23/20 04:10 96.5 98 Room Air 04/22/20 17:30 100 04/22/20 00:00 2.0 I&O- Last 24 Hours up to 6 AM 04/23/20 05:59 Intake Total 1950 ml Output Total 2930 ml Balance -980 ml ANGELINA ACOSTA DO Apr 23, 2020 08:37
--- NOTE | 2020-04-23 11:08 | IPNPDOC ---
Text Note Date of Service The patient was seen on 04/23/20. NOTE Subjective: No any acute events overnight. Cholecystectomy was done yesterday. Patient tolerates procedure well Objective: GENERAL APPEARANCE: NAD HEENT: no scleral icterus, plus JVD, EOMI CARDIOVASCULAR: Irregularly irregular LUNGS: Mild crackles in by his ABDOMEN: soft & not tender w palpitation MUSCULOSKELETAL: +1 pitting edema of lower extremities INTEGUMENT: no generalized palor NEUROLOGICAL: cranial nerve function from 2-12 intact intact, follows commands, speech not dysarthric Assessment and plan Patient is a 74-year-old male who was a direct transfer from [facility] presented with acute right upper quadrant abdominal pain and was found to have cholecystitis. Acute cholecystitis/ status post cholecystectomy Cholecystectomy was done 04/22/20 Anticipated discharge tomorrow with ciprofloxacin and Flagyl Continue Zosyn IV for now Acute systolic CHF Improved Patient had plus JVD, elevated BNP around [address] Michel follows him Await echo report Atrial fibrillation Heart rate under control Eliquis on hold Type 2 diabetes Insulin sliding scale Diabetes diet VS,Fishbone, I+O VS, Fishbone, I+O Laboratory Tests 04/23/20 06:06 Vital Signs Date Time Temp Pulse Resp B/P (MAP) Pulse Ox O2 Delivery O2 Flow Rate FiO2 04/23/20 08:18 70 116/53 04/23/20 08:00 96.7 18 100 Room Air 04/22/20 17:30 100 04/22/20 00:00 2.0 I&O- Last 24 Hours up to 6 AM 04/23/20 06:00 Intake Total 1950 ml Output Total 2930 ml Balance -980 ml ROBBI LIN DO Apr 23, 2020 11:08
[2020-04-23 12:00] VITALS: BP 112/51
[2020-04-23 16:00] VITALS: BP 116/58
[2020-04-23 20:00] VITALS: BP 117/56
[2020-04-23 23:41] VITALS: BP 109/53
[2020-04-24 04:12] VITALS: BP 104/58
[2020-04-24] MEDS: PIPERACILLIN/TAZOBACTAM SOD 3.375 GM in D5W MINI-BAG PLUS 50 ML IV SCH ×4 (04:15→23:33)
[2020-04-24] MEDS: SLF 3 ML SYR IV SCH ×3 (04:15→22:19)
[2020-04-24 06:47] LABS: BASO # 0.1 10^3/uL (0.0-0.2); BASO % 0.7 % (0.0-1.0); EOS # 0.2 10^3/uL (0.0-0.5); EOS % 2.2 % (0.0-3.0); HEMATOCRIT 29.5 % (42.0-52.0); HEMOGLOBIN 9.4 g/dl (13.5-17.5); LYMPH # 1.4 10^3/uL (1.5-5.0); LYMPH % 13.6 % (24.0-44.0); MEAN CORPUSCULAR HEMOGLOBIN 30.7 pg (27.0-33.0); MEAN CORPUSCULAR HGB CONC 31.9 g/dl (32.0-36.5); MEAN CORPUSCULAR VOLUME 96.4 fl (80.0-96.0); MONO # 1.3 10^3/uL (0.0-0.8); MONO % 12.2 % (0.0-5.0); NEUTROPHILS # 7.3 10^3/uL (1.5-8.5); NEUTROPHILS % 70.8 % (36.0-66.0); PLATELET COUNT, AUTOMATED 320 10^3/uL (150-450); RED BLOOD COUNT 3.06 10^6/uL (4.30-6.10); WHITE BLOOD COUNT 10.3 10^3/uL (4.0-10.0)
[2020-04-24 07:20] LABS: ALBUMIN 2.7 GM/DL (3.2-5.2); BILIRUBIN,TOTAL 0.6 MG/DL (0.2-1.0); CALCIUM LEVEL 9.3 MG/DL (8.8-10.2); CREATININE FOR GFR 1.42 MG/DL (0.70-1.30); MAGNESIUM LEVEL 2.3 MG/DL (1.8-2.4); POTASSIUM SERUM 4.9 MEQ/L (3.5-5.1); TOTAL PROTEIN 6.4 GM/DL (6.4-8.2)
--- NOTE | 2020-04-24 07:35 | IPNPDOC ---
Text Note Date of Service The patient was seen on 04/24/20. NOTE No acute events overnight. He is tolerating diet. No problems with nausea, e mesis, or fevers Pain is in the RUQ only and is improved. VSSAF NAD abd - soft, TTP appropriate, incisions c/d/i, drain is serosanguinous labs - below A) 74y/o male s/p lap sabina for acute cholecystitis P) reg diet amb in halls abx dc drain stable for d/c once cleared by medicine Carl Acosta DO VS,Fishbone, I+O VS, Fishbone, I+O Laboratory Tests 04/24/20 06:06 Vital Signs Date Time Temp Pulse Resp B/P (MAP) Pulse Ox O2 Delivery O2 Flow Rate FiO2 04/24/20 04:12 98.5 75 18 104/58 (73) 98 Room Air 04/22/20 17:30 100 04/22/20 00:00 2.0 I&O- Last 24 Hours up to 6 AM 04/24/20 06:00 Intake Total 1744 ml Output Total 1995 ml Balance -251 ml ANGELINA ACOSTA DO Apr 24, 2020 07:35
[2020-04-24 07:54] VITALS: BP 116/56
[2020-04-24] MEDS: FUROSEMIDE 40MG/4ML VIAL (J1940) IV SCH ×2 (08:02→16:22)
[2020-04-24] MEDS: HumaLOG INSULIN (NovoLOG) PER UNIT SC SCH ×4 (08:03→21:00)
[2020-04-24] MEDS: ASPIRIN 81 MG ENTERIC TAB PO SCH (08:03)
[2020-04-24] MEDS: ATORVASTATIN 20 MG TAB PO SCH (08:03)
[2020-04-24] MEDS: CARVedilol 3.125 MG TAB PO SCH ×2 (08:03→20:46)
[2020-04-24] MEDS: MAGNESIUM OXIDE 400 MG TAB (MAG-OX) PO SCH ×3 (08:03→20:47)
[2020-04-24] MEDS: POTASSIUM CHLORIDE 10 MEQ SR TABLET PO SCH (08:04)
[2020-04-24] MEDS: SPIRONOLACTONE 12.5MG PER 1/2 TABLET PO SCH (08:04)
[2020-04-24] MEDS: ENTRESTO 24-26MG TABLET (SACUBITRIL/VALSARTAN) PO SCH ×2 (08:04→20:44)
[2020-04-24] MEDS ORDERED: FUROSEMIDE 40MG/4ML VIAL (J1940) IV SCH (09:00)
--- NOTE | 2020-04-24 09:00 | IPNPDOC ---
Text Note Date of Service The patient was seen on 04/24/20. NOTE Subjective: No any acute events overnight. Cholecystectomy was done yesterday. Patient tolerates procedure well Physical Exam: Vitals: As below GENERAL APPEARANCE: NAD HEENT: no scleral icterus, Neck: No jvd, no thyromegaly CARDIOVASCULAR: regular, rate normal, No rub/ murmur or gallop LUNGS: Bilateral vesiculra breath sounds and clear to auscultation. ABDOMEN: soft & not tender w palpitation, normal bowel sounds. Extremities: +2 pitting edema of lower extremities NEUROLOGICAL: cranial nerve function from 2-12 intact intact, follows commands, speech not dysarthric Labs and Radiology : reviewed. Assessment and plan Patient is a 74-year-old male who was a direct transfer from [facility] presented with acute right upper quadrant abdominal pain and was found to have acute cholecystitis. Acute cholecystitis/ status post cholecystectomy Cholecystectomy was done 04/22/20 will dc with ciprofloxacin and Flagyl Continue Zosyn IV for now Acute on Chronic systolic CHF/ biventricular AICD in place EF of 25% in March at [facility]. Improving Patient had plus JVD, elevated BNP around 6000 now better Continue Lasix IV, spironolactone, entresto, Dr. Michel follows him Sarah Vs CKD now recent previous baseline stable. Atrial fibrillation All paced complexes in tele. Eliquis restart. Type 2 diabetes Insulin sliding scale Diabetes diet Hold metformin. Hypertension coreg CAD/ CABG coreg, statin, ASA Recent Ascending cholangitis ERCP and stone removal in march 2020 at [facility]. Dispo Home in 24 hours. VS,Fishbone, I+O VS, Fishbone, I+O Laboratory Tests 04/24/20 06:06 Vital Signs Date Time Temp Pulse Resp B/P (MAP) Pulse Ox O2 Delivery O2 Flow Rate FiO2 04/24/20 08:03 72 116/56 04/24/20 07:54 97.3 18 98 Room Air 04/22/20 17:30 100 04/22/20 00:00 2.0 I&O- Last 24 Hours up to 6 AM 04/24/20 06:00 Intake Total 1744 ml Output Total 1995 ml Balance -251 ml NAOMY MARIO MD Apr 24, 2020 09:00
[2020-04-24 16:00] VITALS: BP 109/62
[2020-04-24 19:28] VITALS: BP 116/70
[2020-04-24 23:33] VITALS: BP 107/58
[2020-04-25] MEDS: PIPERACILLIN/TAZOBACTAM SOD 3.375 GM in D5W MINI-BAG PLUS 50 ML IV SCH (04:03)
[2020-04-25 04:06] VITALS: BP 106/57
[2020-04-25] MEDS: SLF 3 ML SYR IV SCH (05:49)
[2020-04-25 06:28] LABS: BASO # 0.1 10^3/uL (0.0-0.2); EOS # 0.7 10^3/uL (0.0-0.5); EOS % 6.3 % (0.0-3.0); HEMOGLOBIN 9.5 g/dl (13.5-17.5); LYMPH # 2.3 10^3/uL (1.5-5.0); LYMPH % 20.4 % (24.0-44.0); MEAN CORPUSCULAR HEMOGLOBIN 31.1 pg (27.0-33.0); MEAN CORPUSCULAR HGB CONC 31.7 g/dl (32.0-36.5); MEAN CORPUSCULAR VOLUME 98.4 fl (80.0-96.0); MONO # 1.5 10^3/uL (0.0-0.8); MONO % 13.3 % (0.0-5.0); NEUTROPHILS # 6.7 10^3/uL (1.5-8.5); NEUTROPHILS % 58.1 % (36.0-66.0); PLATELET COUNT, AUTOMATED 315 10^3/uL (150-450); RED BLOOD COUNT 3.05 10^6/uL (4.30-6.10); WHITE BLOOD COUNT 11.4 10^3/uL (4.0-10.0)
[2020-04-25 07:00] LABS: ALBUMIN 2.7 GM/DL (3.2-5.2); BILIRUBIN,TOTAL 0.5 MG/DL (0.2-1.0); CALCIUM LEVEL 9.4 MG/DL (8.8-10.2); CREATININE FOR GFR 1.68 MG/DL (0.70-1.30); GLOMERULAR FILTRATION RATE 42.7 (>42); MAGNESIUM LEVEL 2.2 MG/DL (1.8-2.4); TOTAL PROTEIN 7.1 GM/DL (6.4-8.2)
[2020-04-25] MEDS ORDERED: METR-265 PO (07:48)
[2020-04-25] MEDS ORDERED: CIPR-249 PO (07:48)
[2020-04-25 08:00] VITALS: BP 123/57
[2020-04-25] MEDS: HumaLOG INSULIN (NovoLOG) PER UNIT SC SCH ×2 (08:14→12:00)
[2020-04-25] MEDS: FUROSEMIDE 40MG/4ML VIAL (J1940) IV SCH (08:15)
[2020-04-25] MEDS: ASPIRIN 81 MG ENTERIC TAB PO SCH (08:16)
[2020-04-25] MEDS: MAGNESIUM OXIDE 400 MG TAB (MAG-OX) PO SCH (08:16)
[2020-04-25] MEDS: POTASSIUM CHLORIDE 10 MEQ SR TABLET PO SCH (08:16)
[2020-04-25] MEDS: SPIRONOLACTONE 12.5MG PER 1/2 TABLET PO SCH (08:17)
[2020-04-25] MEDS: ATORVASTATIN 20 MG TAB PO SCH (08:17)
[2020-04-25 08:18] VITALS: BP 123/57
[2020-04-25] MEDS: ENTRESTO 24-26MG TABLET (SACUBITRIL/VALSARTAN) PO SCH (08:18)
[2020-04-25] MEDS: CARVedilol 3.125 MG TAB PO SCH (08:18)
[2020-04-25] MEDS ORDERED: LEVO250T12 PO (10:37)
[2020-04-25] MEDS ORDERED: LevoFLOXacin 500 MG TABLET PO ONE (11:00)
--- NOTE | 2020-04-25 11:00 | DS.PDOC ---
Discharge Summary General Date of Admission Apr 20, 2020 at 00:34 Date of Discharge 04/25/20 Discharge Summary PROCEDURES PERFORMED DURING STAY: Lap cholecystectomy. DISCHARGE DIAGNOSES: Acute Cholecystitis s/p cholecystectomy JACKELYN SECONDARY DIAGNOSIS: Heart failure with reduced ejection fraction with latest echo at the end of March showing EF of 25%. Ascending cholangitis with Choledocholithiasis with ERCP in March 2020 Hypertension. Type 2 diabetes PVD CAD/CABG H/o Atrial fibrillation Biventricular pacemaker and AICD placement. COMPLICATIONS/CHIEF COMPLAINT: Acute Cholecystitis. HOSPITAL COURSE: Patient is a 74-year-old male who was a direct transfer from [facility] presented with acute right upper quadrant abdominal pain and was found to have acute cholecystitis. Acute cholecystitis/ status post cholecystectomy Cholecystectomy was done 04/22/20 will dc with levofloxacin and Flagyl Culture from [facility] fluid growing E coli, Klebsiella, Enterococcus faecium. Acute on Chronic systolic CHF/ biventricular AICD in place EF of 25% in March at [facility]. improved Continue Torsemide spironolactone, Dr. Anand calixto follows him JACKELYN Vs CKD now recent previous baseline stable. Atrial fibrillation All paced complexes in tele. Eliquis restart. Type 2 diabetes restart home meds. Diabetes diet Hypertension coreg CAD/ CABG coreg, statin, ASA Recent Ascending cholangitis with choledocholithiasis ERCP and stone removal in March 2020 at [facility]. DISCHARGE MEDICATIONS: Please see below. ALLERGIES: Please see below. PHYSICAL EXAMINATION ON DISCHARGE: VITAL SIGNS: Please see below. GENERAL APPEARANCE: NAD HEENT: no scleral icterus, Neck: No jvd, no thyromegaly CARDIOVASCULAR: regular, rate normal, No rub/ murmur or gallop LUNGS: Bilateral vesiculra breath sounds and clear to auscultation. ABDOMEN: soft & not tender w palpitation, normal bowel sounds. Extremities: +2 pitting edema of lower extremities NEUROLOGICAL: cranial nerve function from 2-12 intact intact, follows commands, speech not dysarthric LABORATORY DATA: Please see below. ACTIVITY: [As tolerated]. DIET: Carb consistent , Fluid restriction 2 liters. DISCHARGE PLAN: Home DISPOSITION: . DISCHARGE INSTRUCTIONS: PMD in [address] Al in 1 week DISCHARGE CONDITION: [Stable]. TIME SPENT ON DISCHARGE: 35 minutes. Vital Signs/I&Os Vital Signs Date Time Temp Pulse Resp B/P (MAP) Pulse Ox O2 Delivery O2 Flow Rate FiO2 04/25/20 08:18 75 123/57 04/25/20 08:00 97.4 18 97 Room Air 04/22/20 17:30 100 04/22/20 00:00 2.0 I&O- Last 24 Hours up to 6 AM 04/25/20 05:59 Intake Total 1650 ml Output Total 2635 ml Balance -985 ml Laboratory Data Labs 24H Laboratory Tests 2 04/24/20 11:20: Bedside Glucose (Misc Panel) 247H 04/24/20 16:33: Bedside Glucose (Misc Panel) 151H 04/24/20 20:33: Bedside Glucose (Misc Panel) 169H 04/25/20 06:11: Immature Granulocyte % (Auto) 0.9, Neutrophils (%) (Auto) 58.1, Lymphocytes (%) (Auto) 20.4L, Monocytes (%) (Auto) 13.3H, Eosinophils (%) (Auto) 6.3H, Basophils (%) (Auto) 1.0, Neutrophils # (Auto) 6.7, Lymphocytes # (Auto) 2.3, Monocytes # (Auto) 1.5H, Eosinophils # (Auto) 0.7H, Basophils # (Auto) 0.1, Nucleated Red Blood Cells % (auto) 0.0, Anion Gap 4L, Glomerular Filtration Rate 42.7, Calcium Level 9.4, Magnesium Level 2.2, Total Bilirubin 0.5, Aspartate Amino Transf (AST/SGOT) 24, Alanine Aminotransferase (ALT/SGPT) 28, Alkaline Phosphatase 139H, Total Protein 7.1, Albumin 2.7L, Albumin/Globulin Ratio 0.6 CBC/BMP Laboratory Tests 04/25/20 06:11 FSBS Laboratory Tests Test 04/24/20 11:20 04/24/20 16:33 04/24/20 20:33 Range/Units Bedside Glucose (Misc Panel) 247 151 169 83-110 MG/DL Microbiology Microbiology 04/22/20 Gram Stain - Final, Complete 04/22/20 Body Fluid Culture - Final, Complete Klebsiella Pneumoniae Escherichia Coli Enterococcus Faecium Discharge Medications Scheduled Apixaban (Eliquis) 5 Mg Tablet, 5 MG PO BID, (Reported) Aspirin (Aspirin EC) 81 Mg Tablet.dr, 81 MG PO DAILY, (Reported) Atorvastatin Calcium (Atorvastatin Calcium) 80 Mg Tablet, 80 MG PO DAILY, (Reported) DOSE INCREASED AT [facility] Carvedilol (Carvedilol) 3.125 Mg Tablet, 3.125 MG PO BID, (Reported) DOSE LOWERED AT [facility] Levofloxacin (Levofloxacin) 250 Mg Tablet, 1 TAB PO DAILY Magnesium Oxide (Magnesium Oxide) 400 Mg Tablet, 400 MG PO TID, (Reported) Metformin HCl (Metformin HCl) 1,000 Mg Tablet, 1,000 MG PO BID, (Reported) Metronidazole (Metronidazole) 500 Mg Tablet, 500 MG PO TID Potassium Chloride (Potassium Chloride) 10 Meq Tab.er.prt, 20 MEQ PO DAILY, (Reported) Sacubitril/Valsartan (Entresto 24 mg-26 mg Tablet) 1 Each Tablet, 1 TAB PO DAILY, (Reported) Sacubitril/Valsartan (Entresto 24 mg-26 mg Tablet) 1 Each Tablet, 0.5 TAB PO QHS, (Reported) Spironolactone (Spironolactone) 25 Mg Tablet, 12.5 MG PO DAILY, (Reported) Torsemide (Torsemide) 20 Mg Tablet, 20 MG PO 2XW, (Reported) SATURDAY AND SATURDAY Torsemide (Torsemide) 20 Mg Tablet, 40 MG PO 5XW, (Reported) SATURDAY, SATURDAY, SATURDAY, SATURDAY, AND SATURDAY Scheduled PRN Nitroglycerin (Nitroglycerin) 0.4 Mg Tab.subl, 0.4 MG SL NITRO PRN for CHEST PAIN, (Reported) Oxycodone HCl (Oxycodone HCl) 5 Mg Tablet, 5 MG PO Q4H PRN for PAIN, (Reported) Allergies Coded Allergies: No Known Allergies (Verified Allergy, Unknown, 04/04/20) NAOMY MARIO MD Apr 25, 2020 11:00
--- NOTE | 2020-04-25 11:25 | ECHO ---
DATE OF PROCEDURE: 04/20/2020 Age: 74 Gender: Male REFERRING PHYSICIAN: Shiv Conti DO PATIENT LOCATION: Room 3229 REASON FOR STUDY: Abnormal EKG 2D MEASUREMENTS: IVS 1.1 cm LV 5.6 cm LVPW 1.1 cm LA 4.0 cm Aorta 2.8 cm IVC 2.0 cm DOPPLER MEASUREMENT Peak velocity across the aortic valve 1.5 m/s Peak velocity across the LVOT 0.8 m/s Mitral E 1.2 Maximum tricuspid valve velocity 3.1 m/s 2D COMMENTS: 1. Normal left ventricular wall thickness with mildly enlarged left ventricle and a severely depressed global left ventricular systolic function. The estimated left ventricular systolic ejection fraction is 25% to 30%. 2. Borderline enlarged left atrium at 4.0 cm. Normal right atrium and right ventricle. 3. The atrial septum appeared to be normal without evidence of defect or shunt. 4. Normal aortic root. 5. No pericardial effusion seen. 6. Minimally calcified aortic valve with normal leaflet excursion. 7. Mildly calcified mitral annulus with normal anterior mitral valve leaflet motion. Normal tricuspid valve and pulmonic valve. The proximal pulmonary artery branches were not well visualized. 8. The inferior vena cava was borderline enlarged, central venous pressure might be elevated. Doppler detects mild aortic regurgitation, moderate mitral regurgitation, and moderate tricuspid regurgitation. The calculated pulmonary artery systolic pressure varies between 40 to 50 mmHg. Assessment of the left ventricular diastolic function was limited in view of the underlying arrhythmias. IMPRESSION: 1. Severe global left ventricular systolic dysfunction with a mildly enlarged left ventricle and global hypokinesis. Assessment of the left ventricular diastolic function was limited. 2. Aortic valve sclerosis with mild aortic regurgitation, but no aortic stenosis. 3. Mitral annulus calcification with moderate mitral regurgitation and a borderline enlarged left atrium. 4. Moderate tricuspid regurgitation with moderate pulmonary hypertension. 5. Pacemaker/AICD wire artifacts noted. [facility]
--- NOTE | 2020-04-25 11:29 | RO ---
DATE OF OPERATION: 04/22/2020 PREOPERATIVE DIAGNOSIS: Cholelithiasis with acute cholecystitis. POSTOPERATIVE DIAGNOSIS: Acute cholecystitis with cholelithiasis. PROCEDURE PERFORMED: Laparoscopic cholecystectomy with lysis of adhesions. SURGEON: Wilber Al MD [employer]BER SERVICES REPRESENTATIVE: ANESTHESIA: General. INDICATIONS FOR THE PROCEDURE: The patient is a 74-year-old man who had initially presented at [facility] on or about the 03 of April with evidence for sepsis determined to be from a common bile duct stone. He underwent an ERCP with stenting in [place] and was kept there for IV antibiotics. He was discharged on or about the 11 of April but returned to [facility] with increasing right upper quadrant pain approximately a week later. He was transferred to [facility] for treatment of what was felt to be acute cholecystitis. He is now for a laparoscopic cholecystectomy. DESCRIPTION OF OPERATIVE PROCEDURE: The patient was brought to the operating room and placed on the table in a supine position. He was placed under general endotracheal anesthesia. TEDs and sequentials were utilized. The patient's abdomen was prepped and draped in a sterile fashion. A magnet was placed over the patient's pacemaker defibrillator by anesthesia. Initial entry into the patient's abdomen was in the left upper quadrant. 25% Marcaine was infiltrated in each of the trocar sites. A short transverse incision was made and a Veress needle was inserted. After a positive hanging drop test the abdomen was inflated with CO2 gas. A 5 mm port was placed over the 5 mm scope and advanced through the abdominal wall without difficulty. Initial examination showed no evidence of trocar injury. It was noted that there was omentum covering the inferior aspect of the right lobe of the liver. It was also noted the liver was high up in the abdomen and that the initial port placement was going to be perhaps problematic. The liver itself was somewhat dark in color and with some slight surface irregularities but no true nodularity. The patient was tilted to a reverse Trendelenburg position and rolled slightly to the left. An 11 mm port was placed in the right upper quadrant approximately 4 to 5 cm to the right of the midline and slightly above the level of the umbilicus. Two 5 mm ports were placed then in the right upper quadrant. Graspers were inserted and the omentum was pulled down off of the liver exposing a markedly distended and firm gallbladder. This appeared to be encased in portions of the omentum with the transverse colon running adjacent to the gallbladder. An aspirating needle was inserted into the abdomen and the gallbladder was aspirated. What returned appeared to be consistent with light yellow-green purulent fluid. A portion of this was saved and sent to the lab in a specimen container for gram stain and culture and sensitivity. The gallbladder did decompress nicely although the wall remained quite thickened. The gallbladder was grasped and placed on tension upwards. The surrounding markedly thickened indurated omentum and transverse colon were then peeled away using primarily blunt dissection to expose the wall of the gallbladder. Some denser adhesive bands were cut using the cautery. In this manner the gallbladder was freed on the inferior aspect. The gallbladder could then be better elevated. Dissection was then begun in the markedly inflamed and indurated pericholecystic tissues around the gallbladder neck. The peritoneum was scored. A combination of a blunt and cautery dissection was utilized. The peritoneum was opened up along the medial aspect of the gallbladder and the gallbladder was peeled away from the gallbladder bed through a layer of inflammation using primarily blunt dissection. Hemostasis was then obtained using the cautery on the gallbladder bed. I attempted to work through some of the tissues near the gallbladder neck but these were the most inflamed and indurated tissues. I therefore returned to peeling the gallbladder away from the gallbladder bed working across the fundus and then down the lateral aspect. There was some bleeding during this because of working through such inflamed tissues, but this was controlled with the cautery. Ultimately the gallbladder was attached only in the area of the gallbladder neck. It was then possible to work slowly through the tissues at the gallbladder neck. The artery was identified and clipped and divided. With further dissection, the cystic duct could be ascertained and this was also clipped and divided. A few remaining fragments of tissue were divided with the cautery. The gallbladder was placed in an Endopouch. The right upper quadrant was then irrigated and inspected. There was a small area of bleeding identified near the clipped stump of the cholecystic artery. This was controlled with careful use of cautery. The gallbladder bed was treated with cautery for any other punctate bleeding sites. The right upper quadrant was then thoroughly irrigated and any spilled blood was removed. I would note that in the course of dissecting the gallbladder some of the residual contents that appeared purulent were spilled into the subhepatic space and were irrigated copiously. Final inspection of the operative area showed no evidence of any bleeding or bile leak. The gallbladder had been placed in an Endopouch. I elected to place a drain in the subhepatic space. I would note that a fifth trocar had been placed in the medial aspect of the right upper quadrant to the right of the falciform ligament to facilitate dissection during the freeing of the gallbladder. A 19 Japanese Jamarcus drain was inserted through the 11 mm port and directed out through the lateral right upper quadrant port. This was placed across the subhepatic space. The patient was returned to a flat position. The abdomen was deflated and the trocars were removed. A longitudinal paramedian incision approximately 3-4 cm in length was made at the 11 mm port site in the right upper quadrant to remove the gallbladder. This was then sent for permanent pathology. The posterior rectus sheath was closed with a running suture of 1-0 Vicryl. The anterior sheath was closed with interrupted simple sutures of 1-0 Vicryl. The skin incisions were closed with buried 4-0 Vicryl and Steri-Strips. The drain was sutured to the skin with a 2-0 silk and connected to a Sid-Denney bulb. The drain site was dressed with a CHG OpSite. The patient tolerated the procedure extremely well without apparent problem. He was awakened in the operating room and extubated and moved to the recovery room in stable condition. CRISTIAN
== END 2020-04-25 12:30 | disposition home or self-care (01) | DRG 417 ==
LOC: M ED INP 04-20 00:34 → M MSPAV 04-20 00:40 → M PCU 04-21 14:57
PROVIDERS: ADMIT General Practice; ATTEND Internal Medicine Nephrology
PROC: 0FT44ZZ Resection of Gallbladder, Percutaneous Endoscopic Approach (ICD-10-PCS; principal; 2020-04-22 13:45)
DX: K81.0 Acute cholecystitis (principal); I50.23 Acute on chronic systolic (congestive) heart failure; E11.51 Type 2 diabetes mellitus with diabetic peripheral angiopathy without gangrene; I48.91 Unspecified atrial fibrillation; Z95.0 Presence of cardiac pacemaker; I11.0 Hypertensive heart disease with heart failure; Z79.82 Long term (current) use of aspirin; Z79.899 Other long term (current) drug therapy; Z87.891 Personal history of nicotine dependence; Z79.01 Long term (current) use of anticoagulants

== ENCOUNTER 2024-01-07 11:06 | Inpatient (IN) | payer OTHER ==
[~2024-01-07] VITALS: Ht 165.1 cm; Wt 105.0 kg
[~2024-01-07 11:06] MED LIST changes: +ATOR80TA59 PO; +CARV3.12 PO; +CIPR-249 PO; +LEVO1TAB38 PO; +METR-265 PO; +OXYC-517 PO; +POTA-150 PO; +POTA-151 PO; -POTA20TA6 PO
[2024-01-07] MEDS ORDERED: FERR325T3 PO (11:29)
[2024-01-07] MEDS ORDERED: ALLO100T PO (11:29)
[2024-01-07 12:06] LABS: BASO # 0.1 10^3/uL (0.0-0.2); BASO % 0.6 % (0.0-1.0); EOS # 0.3 10^3/uL (0.0-0.5); EOS % 3.1 % (0.0-3.0); HEMATOCRIT 31.3 % (42.0-52.0); LYMPH # 0.9 10^3/uL (1.5-5.0); LYMPH % 9.8 % (24.0-44.0); MEAN CORPUSCULAR HEMOGLOBIN 31.8 pg (27.0-33.0); MEAN CORPUSCULAR HGB CONC 31.9 g/dl (32.0-36.5); MEAN CORPUSCULAR VOLUME 99.7 fl (80.0-96.0); MONO # 0.9 10^3/uL (0.0-0.8); MONO % 9.7 % (2.0-8.0); NEUTROPHILS # 7.1 10^3/uL (1.5-8.5); NEUTROPHILS % 76.3 % (36.0-66.0); PLATELET COUNT, AUTOMATED 227 10^3/uL (150-450); RED BLOOD COUNT 3.14 10^6/uL (4.30-6.10); WHITE BLOOD COUNT 9.3 10^3/uL (4.0-10.0)
[2024-01-07] MEDS: FUROSEMIDE 40MG/4ML VIAL IV ONE (13:01)
[2024-01-07] MEDS: CEPHALEXIN 500 MG CAP PO ONE (13:01)
[2024-01-07 13:44] LABS: ALBUMIN 3.7 G/DL (3.2-5.2); BILIRUBIN,DIRECT 0.4 MG/DL (<0.4); BILIRUBIN,TOTAL 0.9 MG/DL (0.3-1.2); CALCIUM LEVEL 9.6 MG/DL (8.3-10.6); CK-MB VALUE MASS 2.3 NG/ML (<3.6); CREATININE FOR GFR 2.03 MG/DL (0.70-1.30); GLOMERULAR FILTRATION RATE 34.1 (>42); MB/CK RELATIVE INDEX 3.28 (< OR =4); POTASSIUM SERUM 4.9 MMOL/L (3.5-5.1); TOTAL PROTEIN 6.2 G/DL (5.7-8.2)
[2024-01-07 13:45] LABS: THYROID STIMULATING HORMONE 2.731 uIU/ML (0.55-4.78)
[2024-01-07 13:46] LABS: FREE T4 1.31 NG/DL (0.89-1.76)
[2024-01-07] MEDS ORDERED: MOM 30ML SUSPENSION UDC PO PRN (15:05)
[2024-01-07] MEDS ORDERED: MAALOX 30 ML SUSP *UDC PO PRN (15:05)
[2024-01-07 16:20] VITALS: BP 138/77; TEMP 97.3; O2SAT 97
[2024-01-07] MEDS: FUROSEMIDE 40MG/4ML VIAL IV SCH ×2 (17:56→21:40)
[2024-01-07] MEDS: metOLazone 5 MG TAB PO ONE (17:59)
[2024-01-07 20:19] VITALS: BP 135/71; TEMP 98; O2SAT 98
[2024-01-07 20:20] LABS: HEMOGLOBIN A1c 6.3 % (4.0-6.0)
[2024-01-07] MEDS ORDERED: HOME MED LIST COMPLETE! XX SCH (21:00)
[2024-01-08] MEDS: ACETAMINOPHEN TAB 650MG DOSE (2X325MG) PO PRN (00:05)
[2024-01-08 03:45] VITALS: BP 141/67; TEMP 97.7; O2SAT 96
[2024-01-08] MEDS ORDERED: GLUCAGON INJ 1MG VIAL SC PRN (06:00)
[2024-01-08] MEDS ORDERED: GLUCOSE 4 GM CHEW PO PRN (06:00)
[2024-01-08] MEDS ORDERED: DEXTROSE 50% 50ML SYRINGE IV PRN (06:00)
[2024-01-08] MEDS ORDERED: PILL CUTTER 1 EACH XX PRN (06:25)
[2024-01-08 07:09] LABS: CALCIUM LEVEL 9.3 MG/DL (8.3-10.6); CREATININE FOR GFR 2.18 MG/DL (0.70-1.30); GLOMERULAR FILTRATION RATE 31.4 (>42); MAGNESIUM LEVEL 1.9 MG/DL (1.8-2.4); POTASSIUM SERUM 3.9 MMOL/L (3.5-5.1)
[2024-01-08] MEDS: allopurinoL 100 MG TAB PO SCH (08:17)
[2024-01-08] MEDS: ATORVASTATIN 20 MG TAB PO SCH (08:17)
[2024-01-08] MEDS: FERROUS SULFATE 325MG TAB PO SCH (08:17)
[2024-01-08] MEDS: ASPIRIN 81MG ENTERIC TABLET PO SCH (08:17)
[2024-01-08] MEDS: CEPHALEXIN 500 MG CAP PO SCH ×2 (08:18→16:08)
[2024-01-08] MEDS: MAGNESIUM OXIDE 400MG TAB (MAG-OX) PO SCH (08:18)
[2024-01-08] MEDS: metOLazone 5 MG TAB PO SCH (08:18)
[2024-01-08] MEDS: CARVedilol 6.25 MG TAB PO SCH (08:18)
[2024-01-08] MEDS: ENTRESTO 24-26MG TABLET (SACUBITRIL/VALSARTAN) PO SCH ×2 (08:18→21:00)
[2024-01-08] MEDS: FUROSEMIDE 100MG/10ML VIAL IV SCH (08:19)
[2024-01-08] MEDS: APIXABAN 5 MG TAB (ELIQUIS) PO SCH (08:19)
[2024-01-08] MEDS: INSULIN LISPRO (NovoLOG) PER UNIT SC SCH ×2 (08:19→21:00)
[2024-01-08] MEDS: SPIRONOLACTONE 12.5MG PER 1/2 TABLET PO SCH (10:02)
[2024-01-08] MEDS: BOOSTRIX VACCINE (TETANUS/DIPHTH/ACEL. PERTUSSIS) 0.5ML SYR IM ONE (10:04)
[2024-01-08 12:00] VITALS: BP 126/32; TEMP 97.5; O2SAT 97
[2024-01-08 17:16] LABS: CALCIUM LEVEL 9.2 MG/DL (8.3-10.6); CREATININE FOR GFR 2.19 MG/DL (0.70-1.30); GLOMERULAR FILTRATION RATE 31.2 (>42); POTASSIUM SERUM 3.6 MMOL/L (3.5-5.1)
[2024-01-08 21:30] VITALS: BP 112/53; TEMP 97.3; O2SAT 98
[2024-01-08] MEDS: POTASSIUM CHLORIDE 10MEQ SR TABLET PO SCH (22:20)
[2024-01-08 23:50] VITALS: BP 117/55; TEMP 96.9; O2SAT 99
[2024-01-09 04:00] VITALS: BP 114/54; TEMP 97.2; O2SAT 98
[2024-01-09 06:22] LABS: BASO % 0.4 % (0.0-1.0); EOS # 0.6 10^3/uL (0.0-0.5); EOS % 7.1 % (0.0-3.0); HEMATOCRIT 33.1 % (42.0-52.0); HEMOGLOBIN 10.5 g/dl (13.5-17.5); LYMPH # 1.1 10^3/uL (1.5-5.0); MEAN CORPUSCULAR HEMOGLOBIN 30.9 pg (27.0-33.0); MEAN CORPUSCULAR HGB CONC 31.7 g/dl (32.0-36.5); MEAN CORPUSCULAR VOLUME 97.4 fl (80.0-96.0); MONO # 1.1 10^3/uL (0.0-0.8); MONO % 12.2 % (2.0-8.0); NEUTROPHILS # 6.1 10^3/uL (1.5-8.5); NEUTROPHILS % 67.9 % (36.0-66.0); PLATELET COUNT, AUTOMATED 219 10^3/uL (150-450)
[2024-01-09 06:43] LABS: CALCIUM LEVEL 9.6 MG/DL (8.3-10.6); CREATININE FOR GFR 2.28 MG/DL (0.70-1.30); GLOMERULAR FILTRATION RATE 29.8 (>42); MAGNESIUM LEVEL 1.9 MG/DL (1.8-2.4); POTASSIUM SERUM 3.5 MMOL/L (3.5-5.1)
[2024-01-09] MEDS: metOLazone 5 MG TAB PO SCH (08:06)
[2024-01-09] MEDS: SPIRONOLACTONE 25 MG TAB PO SCH (09:00)
[2024-01-09] MEDS: POTASSIUM CHLORIDE 10MEQ SR TABLET PO SCH (11:17)
[2024-01-09] MEDS: FUROSEMIDE injection 250 MG in D5W 225 ML IV SCH (11:18)
[2024-01-09 12:00] VITALS: BP 108/49; TEMP 97.7; O2SAT 95
[2024-01-09 21:53] VITALS: BP 118/53; TEMP 97.5; O2SAT 99
[2024-01-10 06:44] LABS: CALCIUM LEVEL 9.4 MG/DL (8.3-10.6); CREATININE FOR GFR 2.3 MG/DL (0.70-1.30); GLOMERULAR FILTRATION RATE 29.5 (>42); MAGNESIUM LEVEL 1.8 MG/DL (1.8-2.4); POTASSIUM SERUM 3.4 MMOL/L (3.5-5.1)
[2024-01-10] MEDS: POTASSIUM CHLORIDE 10MEQ SR TABLET PO ONE (08:59)
[2024-01-10] MEDS: POTASSIUM CHLORIDE 10MEQ SR TABLET PO SCH (09:03)
[2024-01-10 12:00] VITALS: BP 94/43; TEMP 97.3; O2SAT 97
[2024-01-10 13:30] VITALS: BP 100/50
[2024-01-10 16:00] VITALS: BP 108/52
[2024-01-10 20:52] VITALS: BP 101/54; TEMP 97.3; O2SAT 100
[2024-01-11 04:06] VITALS: BP 116/55; TEMP 97.3; O2SAT 99
[2024-01-11 07:21] LABS: BASO # 0.1 10^3/uL (0.0-0.2); BASO % 0.7 % (0.0-1.0); EOS # 0.8 10^3/uL (0.0-0.5); EOS % 8.2 % (0.0-3.0); HEMATOCRIT 29.7 % (42.0-52.0); HEMOGLOBIN 9.5 g/dl (13.5-17.5); LYMPH # 1.2 10^3/uL (1.5-5.0); MEAN CORPUSCULAR VOLUME 97.1 fl (80.0-96.0); MONO # 1.4 10^3/uL (0.0-0.8); MONO % 15.2 % (2.0-8.0); NEUTROPHILS # 5.7 10^3/uL (1.5-8.5); NEUTROPHILS % 62.4 % (36.0-66.0); PLATELET COUNT, AUTOMATED 234 10^3/uL (150-450); RED BLOOD COUNT 3.06 10^6/uL (4.30-6.10); WHITE BLOOD COUNT 9.1 10^3/uL (4.0-10.0)
[2024-01-11 07:47] LABS: CALCIUM LEVEL 8.8 MG/DL (8.3-10.6); CREATININE FOR GFR 2.47 MG/DL (0.70-1.30); GLOMERULAR FILTRATION RATE 27.2 (>42); MAGNESIUM LEVEL 1.9 MG/DL (1.8-2.4); POTASSIUM SERUM 4.2 MMOL/L (3.5-5.1)
[2024-01-11 11:34] VITALS: BP 113/52
[2024-01-11 12:00] VITALS: BP 111/46; TEMP 97.2; O2SAT 97
[2024-01-11 20:00] VITALS: BP 115/46; TEMP 97.5; O2SAT 98
[2024-01-11] MEDS: RAMELTEON 8 MG TAB (ROZEREM) PO SCH (21:05)
[2024-01-12 03:38] VITALS: BP 108/46; TEMP 97.5; O2SAT 98
[2024-01-12 07:22] LABS: CALCIUM LEVEL 9.4 MG/DL (8.3-10.6); CREATININE FOR GFR 2.56 MG/DL (0.70-1.30); GLOMERULAR FILTRATION RATE 26.1 (>42); POTASSIUM SERUM 4.4 MMOL/L (3.5-5.1)
[2024-01-12] MEDS: FERRIC CARBOXYMALTOSE INJ 750 MG, VIAL MATE ADAPTER 1 EACH in NS 250 ML IV ONE (11:53)
[2024-01-12 12:00] VITALS: BP 110/47; TEMP 97.5; O2SAT 98
[2024-01-12] MEDS: metOLazone 2.5 MG TAB PO ONE (13:25)
[2024-01-12 19:48] VITALS: BP 118/50; TEMP 97.3; O2SAT 98
[2024-01-13 03:52] VITALS: BP 108/60; TEMP 97.3; O2SAT 96
[2024-01-13 06:39] LABS: CALCIUM LEVEL 9.7 MG/DL (8.3-10.6); CREATININE FOR GFR 2.54 MG/DL (0.70-1.30); GLOMERULAR FILTRATION RATE 26.3 (>42)
[2024-01-13] MEDS: MUPIROCIN 2% OINT 22 GM TUBE TOP SCH (09:00)
[2024-01-13 12:00] VITALS: BP 103/56; TEMP 97.3; O2SAT 98
[2024-01-13] MEDS: metOLazone 5 MG TAB PO ONE (12:32)
[2024-01-13 20:00] VITALS: BP 114/51; TEMP 97.5; O2SAT 99
[2024-01-13 20:30] VITALS: BP 113/51; TEMP 97.7; O2SAT 99
[2024-01-14 04:00] VITALS: BP 117/52; TEMP 97.9; O2SAT 99
[2024-01-14 07:00] LABS: BASO # 0.1 10^3/uL (0.0-0.2); BASO % 0.6 % (0.0-1.0); EOS # 0.7 10^3/uL (0.0-0.5); EOS % 7.9 % (0.0-3.0); HEMATOCRIT 31.2 % (42.0-52.0); LYMPH # 0.9 10^3/uL (1.5-5.0); LYMPH % 9.7 % (24.0-44.0); MEAN CORPUSCULAR HGB CONC 32.1 g/dl (32.0-36.5); MEAN CORPUSCULAR VOLUME 96.6 fl (80.0-96.0); MONO # 1.4 10^3/uL (0.0-0.8); MONO % 15.1 % (2.0-8.0); NEUTROPHILS # 5.9 10^3/uL (1.5-8.5); NEUTROPHILS % 66.1 % (36.0-66.0); PLATELET COUNT, AUTOMATED 232 10^3/uL (150-450); RED BLOOD COUNT 3.23 10^6/uL (4.30-6.10)
[2024-01-14 07:18] LABS: CALCIUM LEVEL 10.1 MG/DL (8.3-10.6); CREATININE FOR GFR 2.35 MG/DL (0.70-1.30); GLOMERULAR FILTRATION RATE 28.8 (>42); POTASSIUM SERUM 4.7 MMOL/L (3.5-5.1)
[2024-01-14 12:00] VITALS: BP 119/50; TEMP 97.5; O2SAT 96
[2024-01-14] MEDS: metOLazone 5 MG TAB PO ONE (12:11)
[2024-01-14 20:20] VITALS: BP 116/49; TEMP 97.2; O2SAT 94
[2024-01-14] MEDS: LEVEMIR (INSULIN DETEMIR) 1 UNITS/0.01ML SC SCH (20:26)
[2024-01-15 05:41] VITALS: BP_SYST 100; BP_SYST 112; BP_DIAS 42; BP_DIAS 49; TEMP 97; TEMP 97.5; O2SAT 100; O2SAT 90
[2024-01-15 06:06] LABS: BASO # 0.1 10^3/uL (0.0-0.2); BASO % 0.7 % (0.0-1.0); EOS # 0.6 10^3/uL (0.0-0.5); EOS % 7.6 % (0.0-3.0); HEMATOCRIT 31.2 % (42.0-52.0); LYMPH # 0.8 10^3/uL (1.5-5.0); LYMPH % 9.6 % (24.0-44.0); MEAN CORPUSCULAR HGB CONC 32.1 g/dl (32.0-36.5); MEAN CORPUSCULAR VOLUME 96.6 fl (80.0-96.0); MONO # 1.3 10^3/uL (0.0-0.8); MONO % 15.2 % (2.0-8.0); NEUTROPHILS # 5.6 10^3/uL (1.5-8.5); NEUTROPHILS % 66.4 % (36.0-66.0); PLATELET COUNT, AUTOMATED 222 10^3/uL (150-450); RED BLOOD COUNT 3.23 10^6/uL (4.30-6.10); WHITE BLOOD COUNT 8.4 10^3/uL (4.0-10.0)
[2024-01-15 06:41] LABS: CALCIUM LEVEL 10.2 MG/DL (8.3-10.6); CREATININE FOR GFR 2.33 MG/DL (0.70-1.30); GLOMERULAR FILTRATION RATE 29.1 (>42); MAGNESIUM LEVEL 1.9 MG/DL (1.8-2.4); POTASSIUM SERUM 3.9 MMOL/L (3.5-5.1)
[2024-01-15 12:00] VITALS: BP 114/50; TEMP 97; O2SAT 99
[2024-01-15] MEDS: metOLazone 5 MG TAB PO ONE (12:31)
[2024-01-15] MEDS: NS IV SCH (14:42)
[2024-01-15] MEDS: FUROSEMIDE IV SCH (14:42)
[2024-01-15] MEDS: POTASSIUM CHLORIDE 10MEQ SR TABLET PO SCH (16:13)
[2024-01-15 20:07] VITALS: BP 113/49; TEMP 97.5; O2SAT 100
[2024-01-16 02:39] VITALS: BP 113/50
[2024-01-16 04:19] VITALS: BP 114/52; TEMP 97.2; O2SAT 98
[2024-01-16] MEDS: POTASSIUM CHLORIDE 10MEQ SR TABLET PO SCH (11:07)
[2024-01-16] MEDS: metOLazone 5 MG TAB PO ONE (11:07)
[2024-01-16 12:00] VITALS: BP 108/48; TEMP 97.5; O2SAT 98
[2024-01-16 12:13] LABS: ALBUMIN 3.6 G/DL (3.2-5.2); CALCIUM LEVEL 9.5 MG/DL (8.3-10.6); CREATININE FOR GFR 2.19 MG/DL (0.70-1.30); GLOMERULAR FILTRATION RATE 31.2 (>42); PHOSPHORUS LEVEL 4.7 MG/DL (2.4-5.1); POTASSIUM SERUM 3.6 MMOL/L (3.5-5.1)
[2024-01-16 20:24] VITALS: BP 113/49; TEMP 97.3; O2SAT 100
[2024-01-16] MEDS: LEVEMIR (INSULIN DETEMIR) 1 UNITS/0.01ML SC SCH (21:00)
[2024-01-17 04:26] VITALS: BP 126/60; TEMP 97; O2SAT 99
[2024-01-17 07:06] LABS: CALCIUM LEVEL 9.8 MG/DL (8.3-10.6); CREATININE FOR GFR 2.12 MG/DL (0.70-1.30); GLOMERULAR FILTRATION RATE 32.4 (>42); MAGNESIUM LEVEL 1.9 MG/DL (1.8-2.4); PHOSPHORUS LEVEL 5.2 MG/DL (2.4-5.1); POTASSIUM SERUM 3.3 MMOL/L (3.5-5.1)
[2024-01-17] MEDS: POTASSIUM CHLORIDE 10MEQ SR TABLET PO SCH ×2 (09:24→09:36)
[2024-01-17 12:00] VITALS: BP 116/48; TEMP 97.5; O2SAT 97
[2024-01-17] MEDS: ACETAMINOPHEN 500 MG TAB PO PRN (16:19)
[2024-01-17 20:50] VITALS: BP 114/49; TEMP 97.3; O2SAT 99
[2024-01-18 03:40] VITALS: BP 121/61; TEMP 97.2; O2SAT 99
[2024-01-18 08:46] LABS: CALCIUM LEVEL 10.2 MG/DL (8.3-10.6); CREATININE FOR GFR 2.21 MG/DL (0.70-1.30); GLOMERULAR FILTRATION RATE 30.9 (>42); MAGNESIUM LEVEL 2.1 MG/DL (1.8-2.4); POTASSIUM SERUM 3.4 MMOL/L (3.5-5.1)
[2024-01-18 12:00] VITALS: BP 95/48; TEMP 97.5; O2SAT 98
[2024-01-18 15:54] VITALS: BP 99/53
[2024-01-18 20:59] VITALS: BP 105/54; TEMP 97.3; O2SAT 100
[2024-01-19 03:50] VITALS: BP 112/59; TEMP 97.2; O2SAT 99
[2024-01-19 06:59] LABS: BASO # 0.1 10^3/uL (0.0-0.2); BASO % 0.7 % (0.0-1.0); EOS # 0.8 10^3/uL (0.0-0.5); EOS % 7.4 % (0.0-3.0); HEMOGLOBIN 10.1 g/dl (13.5-17.5); LYMPH # 1.1 10^3/uL (1.5-5.0); LYMPH % 10.6 % (24.0-44.0); MEAN CORPUSCULAR HEMOGLOBIN 31.2 pg (27.0-33.0); MEAN CORPUSCULAR HGB CONC 32.6 g/dl (32.0-36.5); MEAN CORPUSCULAR VOLUME 95.7 fl (80.0-96.0); MONO # 1.3 10^3/uL (0.0-0.8); MONO % 12.6 % (2.0-8.0); NEUTROPHILS # 6.9 10^3/uL (1.5-8.5); NEUTROPHILS % 68.2 % (36.0-66.0); PLATELET COUNT, AUTOMATED 208 10^3/uL (150-450); RED BLOOD COUNT 3.24 10^6/uL (4.30-6.10); WHITE BLOOD COUNT 10.1 10^3/uL (4.0-10.0)
[2024-01-19 07:21] LABS: CALCIUM LEVEL 9.8 MG/DL (8.3-10.6); CREATININE FOR GFR 2.17 MG/DL (0.70-1.30); GLOMERULAR FILTRATION RATE 31.5 (>42); MAGNESIUM LEVEL 2.3 MG/DL (1.8-2.4); POTASSIUM SERUM 3.9 MMOL/L (3.5-5.1)
[2024-01-19] MEDS ORDERED: SUMAtriptan SUCCINATE 25 MG TAB PO PRN (10:15)
[2024-01-19 12:00] VITALS: BP 116/51; TEMP 97.3; O2SAT 99
[2024-01-19] MEDS: VANICREAM MOISTURIZING SKIN CREAM 113GM TUBE TOP SCH (13:09)
[2024-01-19] MEDS: HYDROCORTISONE 1% OINTMENT 30GM TOP SCH (13:09)
[2024-01-19 20:00] VITALS: BP 110/54; TEMP 97.2; O2SAT 100
[2024-01-20 04:00] VITALS: BP 114/57; TEMP 96.6; O2SAT 98
[2024-01-20 08:21] LABS: CALCIUM LEVEL 9.8 MG/DL (8.3-10.6); CREATININE FOR GFR 2.09 MG/DL (0.70-1.30); GLOMERULAR FILTRATION RATE 32.9 (>42); MAGNESIUM LEVEL 2.5 MG/DL (1.8-2.4); POTASSIUM SERUM 3.9 MMOL/L (3.5-5.1)
[2024-01-20 09:23] LABS: BASO # 0.1 10^3/uL (0.0-0.2); BASO % 0.7 % (0.0-1.0); EOS # 0.8 10^3/uL (0.0-0.5); EOS % 7.6 % (0.0-3.0); HEMATOCRIT 31.9 % (42.0-52.0); HEMOGLOBIN 10.4 g/dl (13.5-17.5); LYMPH # 1.2 10^3/uL (1.5-5.0); LYMPH % 11.1 % (24.0-44.0); MEAN CORPUSCULAR HEMOGLOBIN 31.3 pg (27.0-33.0); MEAN CORPUSCULAR HGB CONC 32.6 g/dl (32.0-36.5); MEAN CORPUSCULAR VOLUME 96.1 fl (80.0-96.0); MONO # 1.3 10^3/uL (0.0-0.8); MONO % 12.4 % (2.0-8.0); NEUTROPHILS # 7.1 10^3/uL (1.5-8.5); NEUTROPHILS % 67.6 % (36.0-66.0); PLATELET COUNT, AUTOMATED 232 10^3/uL (150-450); RED BLOOD COUNT 3.32 10^6/uL (4.30-6.10); WHITE BLOOD COUNT 10.5 10^3/uL (4.0-10.0)
[2024-01-20 12:00] VITALS: BP 113/49; TEMP 97.2; O2SAT 97
[2024-01-20 20:00] VITALS: BP 115/49; TEMP 96.6; O2SAT 97
[2024-01-21] VITALS (9 sets, daily range): BP systolic 84–121; BP diastolic 39–58; TEMP 97–97.2; O2SAT 96–98
[2024-01-21] MEDS: ENTRESTO 24-26MG TABLET (SACUBITRIL/VALSARTAN) PO SCH (08:51)
[2024-01-21 08:57] LABS: MAGNESIUM LEVEL 2.4 MG/DL (1.8-2.4)
[2024-01-21] MEDS ORDERED: ENTR1TAB PO (09:58)
[2024-01-21] MEDS: SODIUM CHLORIDE 0.9% 1000ML IV ONE ×2 (14:09→19:52)
[2024-01-21 14:24] LABS: CALCIUM LEVEL 9.5 MG/DL (8.3-10.6); CREATININE FOR GFR 1.88 MG/DL (0.70-1.30); GLOMERULAR FILTRATION RATE 37.2 (>42); POTASSIUM SERUM 3.6 MMOL/L (3.5-5.1)
[2024-01-22] VITALS (9 sets, daily range): BP systolic 88–128; BP diastolic 46–78; TEMP 96.6–97.3; O2SAT 96–100
[2024-01-22] MEDS ORDERED: MIDODRINE 5 MG TAB PO SCH (08:25)
[2024-01-22] MEDS: DAPAGLIFLOZIN PROPANEDIOL 10MG TABLET (FARXIGA) PO SCH (10:18)
[2024-01-22] MEDS: SPIRONOLACTONE 6.25 MG PER 1/4 TAB PO SCH (10:18)
[2024-01-22 10:30] LABS: CREATININE FOR GFR 1.92 MG/DL (0.70-1.30); GLOMERULAR FILTRATION RATE 36.3 (>42); POTASSIUM SERUM 3.9 MMOL/L (3.5-5.1)
[2024-01-23] VITALS (16 sets, daily range): BP systolic 84–124; BP diastolic 46–59; TEMP 95.1–97.9; O2SAT 96–100
[2024-01-23 06:35] LABS: CALCIUM LEVEL 8.8 MG/DL (8.3-10.6); CREATININE FOR GFR 1.85 MG/DL (0.70-1.30); GLOMERULAR FILTRATION RATE 37.9 (>42); MAGNESIUM LEVEL 2.5 MG/DL (1.8-2.4); POTASSIUM SERUM 4.2 MMOL/L (3.5-5.1)
[2024-01-23] MEDS: ENTRESTO 24-26MG TABLET (SACUBITRIL/VALSARTAN) PO SCH (20:41)
[2024-01-24] VITALS (15 sets, daily range): BP systolic 90–120; BP diastolic 50–62; TEMP 96.1–98.2; O2SAT 96–100
[2024-01-24] MEDS: MIDODRINE 5 MG TAB PO PRN (00:06)
[2024-01-24] MEDS ORDERED: SODIUM CHLORIDE 0.9% 250ML IV ONE (00:20)
[2024-01-24 06:12] LABS: BASO # 0.1 10^3/uL (0.0-0.2); BASO % 0.6 % (0.0-1.0); EOS # 0.7 10^3/uL (0.0-0.5); EOS % 7.1 % (0.0-3.0); HEMATOCRIT 27.3 % (42.0-52.0); HEMOGLOBIN 8.9 g/dl (13.5-17.5); LYMPH % 10.7 % (24.0-44.0); MEAN CORPUSCULAR HEMOGLOBIN 31.7 pg (27.0-33.0); MEAN CORPUSCULAR HGB CONC 32.6 g/dl (32.0-36.5); MEAN CORPUSCULAR VOLUME 97.2 fl (80.0-96.0); MONO # 0.9 10^3/uL (0.0-0.8); MONO % 9.1 % (2.0-8.0); NEUTROPHILS % 72.1 % (36.0-66.0); PLATELET COUNT, AUTOMATED 187 10^3/uL (150-450); RED BLOOD COUNT 2.81 10^6/uL (4.30-6.10); WHITE BLOOD COUNT 9.6 10^3/uL (4.0-10.0)
[2024-01-24 06:44] LABS: CALCIUM LEVEL 8.9 MG/DL (8.3-10.6); CREATININE FOR GFR 1.97 MG/DL (0.70-1.30); GLOMERULAR FILTRATION RATE 35.3 (>42); MAGNESIUM LEVEL 2.5 MG/DL (1.8-2.4); POTASSIUM SERUM 4.2 MMOL/L (3.5-5.1)
[2024-01-24 16:29] LABS: CORTISOL AM 22.4 UG/DL (4.3-22.4); CORTISOL BASELINE 22.4 UG/DL (4.3-22.4)
[2024-01-25 01:33] LABS: CALCIUM LEVEL 8.6 MG/DL (8.3-10.6); CREATININE FOR GFR 1.84 MG/DL (0.70-1.30); GLOMERULAR FILTRATION RATE 38.2 (>42); MAGNESIUM LEVEL 2.6 MG/DL (1.8-2.4); POTASSIUM SERUM 4.5 MMOL/L (3.5-5.1)
[2024-01-25 03:12] VITALS: BP 104/58; TEMP 97; O2SAT 99
[2024-01-25 06:02] LABS: CALCIUM LEVEL 8.6 MG/DL (8.3-10.6); CREATININE FOR GFR 1.83 MG/DL (0.70-1.30); GLOMERULAR FILTRATION RATE 38.4 (>42); MAGNESIUM LEVEL 2.6 MG/DL (1.8-2.4); POTASSIUM SERUM 4.3 MMOL/L (3.5-5.1)
[2024-01-25 07:42] VITALS: BP 124/62; TEMP 97.5; O2SAT 100
[2024-01-25 15:33] VITALS: BP 112/64; TEMP 98; O2SAT 97
[2024-01-25] MEDS: FUROSEMIDE 40 MG TAB PO SCH (17:00)
[2024-01-25 19:52] VITALS: BP 96/48; TEMP 96.8; O2SAT 99
[2024-01-25 19:55] VITALS: TEMP 96.2
[2024-01-26] VITALS: BP 108/56; TEMP 97; O2SAT 10; O2SAT 100
[2024-01-26 04:19] VITALS: BP 104/50; TEMP 96.8; O2SAT 100
[2024-01-26 05:40] LABS: CALCIUM LEVEL 8.2 MG/DL (8.3-10.6); CREATININE FOR GFR 1.81 MG/DL (0.70-1.30); GLOMERULAR FILTRATION RATE 38.9 (>42); MAGNESIUM LEVEL 2.3 MG/DL (1.8-2.4); POTASSIUM SERUM 4.1 MMOL/L (3.5-5.1)
[2024-01-26 08:26] VITALS: BP 98/74; TEMP 96.7; O2SAT 100
[2024-01-26 11:53] VITALS: BP 116/58; TEMP 97; O2SAT 100
[2024-01-26] MEDS ORDERED: ALDA25TA2 PO (12:32)
[2024-01-26] MEDS ORDERED: FARX1TAB3 PO (12:32)
[2024-01-26] MEDS ORDERED: ENTR1TAB PO (12:32)
[2024-01-26] MEDS ORDERED: FURO40TA2 PO (12:32)
[2024-01-26] MEDS ORDERED: MIDO5TA PO (12:32)
== END 2024-01-26 14:31 | disposition home or self-care (01) | DRG 291 ==
LOC: EDBD 11:06 → M ED 11:06 → M ED INP 15:03 → M MSPAV 16:23 → M PCU 01-22 13:55
PROVIDERS: ADMIT Student in an Organized Health Care Education/Training Program; ATTEND Student in an Organized Health Care Education/Training Program
PROC: B246ZZZ Ultrasonography of Right and Left Heart (ICD-10-PCS; principal; 2024-01-07)
PROC: 0HCGXZZ Extirpation of Matter from Left Hand Skin, External Approach (ICD-10-PCS; 2024-01-08)
DX: I13.0 Hypertensive heart and chronic kidney disease with heart failure and stage 1 through stage 4 chronic kidney disease, or unspecified chronic kidney disease (principal); I50.23 Acute on chronic systolic (congestive) heart failure; L97.919 Non-pressure chronic ulcer of unspecified part of right lower leg with unspecified severity; L97.929 Non-pressure chronic ulcer of unspecified part of left lower leg with unspecified severity; L02.511 Cutaneous abscess of right hand; N17.9 Acute kidney failure, unspecified; I48.20 Chronic atrial fibrillation, unspecified; E87.1 Hypo-osmolality and hyponatremia; R18.8 Other ascites; E87.3 Alkalosis; I47.20 Ventricular tachycardia, unspecified; I44.2 Atrioventricular block, complete; E11.22 Type 2 diabetes mellitus with diabetic chronic kidney disease; I73.9 Peripheral vascular disease, unspecified; E11.51 Type 2 diabetes mellitus with diabetic peripheral angiopathy without gangrene; I27.20 Pulmonary hypertension, unspecified; I25.10 Atherosclerotic heart disease of native coronary artery without angina pectoris; Z95.5 Presence of coronary angioplasty implant and graft; Z95.810 Presence of automatic (implantable) cardiac defibrillator; Z87.891 Personal history of nicotine dependence; N18.30 Chronic kidney disease, stage 3 unspecified; Z79.01 Long term (current) use of anticoagulants; Z79.82 Long term (current) use of aspirin; Z79.84 Long term (current) use of oral hypoglycemic drugs; Z79.899 Other long term (current) drug therapy; Z88.8 Allergy status to other drugs, medicaments and biological substances; S60.451A Superficial foreign body of left index finger, initial encounter; X58.XXXA Exposure to other specified factors, initial encounter; Y92.9 Unspecified place or not applicable; Y93.9 Activity, unspecified; D50.9 Iron deficiency anemia, unspecified; E87.6 Hypokalemia; I25.5 Ischemic cardiomyopathy; I95.9 Hypotension, unspecified

== ENCOUNTER 2024-02-03 21:15 | Inpatient (IN) | payer OTHER ==
[~2024-02-03] VITALS: Ht 160 cm; Wt 121.1 kg
[~2024-02-03 21:15] MED LIST changes: +ALDA25TA2 PO; +ALLO100T PO; +FARX1TAB3 PO; +FERR325T3 PO; +FURO40TA2 PO; +MIDO5TA PO
[2024-02-03] MEDS: NS 500 ML IV ONE (22:02)
[2024-02-03 22:03] LABS: BASO # 0.1 10^3/uL (0.0-0.2); BASO % 0.4 % (0.0-1.0); EOS # 0.6 10^3/uL (0.0-0.5); EOS % 4.6 % (0.0-3.0); HEMATOCRIT 22.1 % (42.0-52.0); LYMPH # 0.8 10^3/uL (1.5-5.0); LYMPH % 6.3 % (24.0-44.0); MEAN CORPUSCULAR HGB CONC 31.7 g/dl (32.0-36.5); MEAN CORPUSCULAR VOLUME 100.9 fl (80.0-96.0); MONO # 1.1 10^3/uL (0.0-0.8); MONO % 8.6 % (2.0-8.0); NEUTROPHILS # 9.8 10^3/uL (1.5-8.5); NEUTROPHILS % 79.4 % (36.0-66.0); PLATELET COUNT, AUTOMATED 210 10^3/uL (150-450); RED BLOOD COUNT 2.19 10^6/uL (4.30-6.10); WHITE BLOOD COUNT 12.3 10^3/uL (4.0-10.0)
[2024-02-03 22:15] LABS: INR 1.61; PROTHROMBIN TIME 18.6 SECONDS (12.5-14.5)
[2024-02-03] MEDS ORDERED: NOREPINEPHRINE 4MG IN D5 250ML 4 MG in IV 1 EA IV SCH (22:15)
[2024-02-03 22:27] LABS: CK-MB VALUE MASS 1.5 NG/ML (<3.6)
[2024-02-03 22:28] LABS: MB/CK RELATIVE INDEX 1.47 (< OR =4)
[2024-02-03 22:29] LABS: ALBUMIN 3.4 G/DL (3.2-5.2); BILIRUBIN,DIRECT 0.1 MG/DL (<0.4); BILIRUBIN,TOTAL 0.4 MG/DL (0.3-1.2); CALCIUM LEVEL 8.9 MG/DL (8.3-10.6); CREATININE FOR GFR 3.36 MG/DL (0.70-1.30); POTASSIUM SERUM 5.4 MMOL/L (3.5-5.1); TOTAL PROTEIN 6.2 G/DL (5.7-8.2)
[2024-02-03] MEDS: MIDODRINE 5 MG TAB PO ONE (23:15)
[2024-02-03] MEDS: NS 1,000 ML IV ONE (23:15)
[2024-02-03] MEDS: PIPERACILLIN/TAZOBACTAM SOD 2.25 GM in D5W MINI-BAG PLUS 50 ML IV ONE (23:16)
[2024-02-04] VITALS (67 sets, daily range): BP systolic 79–122; BP diastolic 46–72; TEMP 96.5–97; O2SAT 74–100
[2024-02-04 00:07] LABS: CK-MB VALUE MASS < 1.0 NG/ML (<3.6)
[2024-02-04 00:20] LABS: CPK CREATINE PHOSPHOKINASE 108 U/L (46-171); MB/CK RELATIVE INDEX 0.92 (< OR =4)
[2024-02-04] MEDS ORDERED: GLUCOSE 4 GM CHEW PO PRN (02:20)
[2024-02-04] MEDS ORDERED: DEXTROSE 50% 50ML SYRINGE IV PRN (02:20)
[2024-02-04] MEDS ORDERED: GLUCAGON INJ 1MG VIAL SC PRN (02:20)
[2024-02-04] MEDS: NOREPINEPHRINE 4MG IN D5 250ML 4 MG in IV 1 EA IV SCH (03:28)
[2024-02-04] MEDS: PATIROMER SORBITEX CALCIUM 8.4 GM POWDER PACKET (VELTASSA) PO ONE (03:39)
[2024-02-04 04:23] LABS: CALCIUM LEVEL 8.2 MG/DL (8.3-10.6); CREATININE FOR GFR 3.26 MG/DL (0.70-1.30); GLOMERULAR FILTRATION RATE 19.7 (>42)
[2024-02-04] MEDS ORDERED: FARX1TAB5 PO (04:53)
[2024-02-04] MEDS ORDERED: CARV6.25 PO (04:53)
[2024-02-04] MEDS ORDERED: MIDO5TA PO (04:53)
[2024-02-04] MEDS ORDERED: HOME MED LIST COMPLETE! XX SCH (04:55)
[2024-02-04] MEDS ORDERED: CALCIUM GLUCONATE 1,000 MG in D5W MINI-BAG PLUS 100 ML IV SCH (05:00)
[2024-02-04 05:05] LABS: PROCALCITONIN 0.24 ng/ml
[2024-02-04] MEDS: HumuLIN R (REGULAR) INSULIN (NovoLIN R) **100U/ML** PER UNIT SC STA (05:37)
[2024-02-04] MEDS: DEXTROSE 50% 50ML SYRINGE IV STA (05:37)
[2024-02-04] MEDS: FUROSEMIDE 40MG/4ML VIAL IV ONE (05:38)
[2024-02-04 05:46] LABS: VENOUS BASE EXCESS -10.8 (-2.0-2.0); VENOUS HCO3 15.2 MMOL/L (23.0-27.0); VENOUS O2 SATURATION 87.1 % (60.0-80.0); VENOUS PARTIAL PRESSURE CO2 34.2 mmHg (38.0-50.0); VENOUS PARTIAL PRESSURE O2 59.4 mmHg (30.0-50.0); VENOUS PH 7.265 UNITS (7.330-7.430); VENOUS STANDARD HCO3 15.5 MMOL/L; VENOUS TOTAL CO2 16.2 MMOL/L (24.0-28.0)
[2024-02-04] MEDS: CALCIUM GLUCONATE 1,000 MG in D5W MINI-BAG PLUS 100 ML IV SCH (06:05)
[2024-02-04] MEDS: PIPERACILLIN/TAZOBACTAM SOD 2.25 GM in D5W MINI-BAG PLUS 50 ML IV SCH (07:06)
[2024-02-04 07:10] LABS: HEMATOCRIT 25.1 % (42.0-52.0); HEMOGLOBIN 7.5 g/dl (13.5-17.5); MEAN CORPUSCULAR HEMOGLOBIN 32.8 pg (27.0-33.0); MEAN CORPUSCULAR HGB CONC 29.9 g/dl (32.0-36.5); MEAN CORPUSCULAR VOLUME 109.6 fl (80.0-96.0); PLATELET COUNT, AUTOMATED 187 10^3/uL (150-450); RED BLOOD COUNT 2.29 10^6/uL (4.30-6.10); WHITE BLOOD COUNT 10.1 10^3/uL (4.0-10.0)
[2024-02-04] MEDS: IPRATROPIUM 0.5MG/ALBUTEROL 2.5MG INH SOL UD 3ML (DUONEB) NEB SCH (07:29)
[2024-02-04 07:38] LABS: CALCIUM LEVEL 8.6 MG/DL (8.3-10.6); CREATININE FOR GFR 2.98 MG/DL (0.70-1.30); GLOMERULAR FILTRATION RATE 21.9 (>42); POTASSIUM SERUM 5.8 MMOL/L (3.5-5.1)
[2024-02-04] MEDS: INSULIN LISPRO (NovoLOG) PER UNIT SC SCH ×2 (08:18→20:36)
[2024-02-04] MEDS ORDERED: IPRATROPIUM 0.5MG/ALBUTEROL 2.5MG INH SOL UD 3ML (DUONEB) NEB PRN (08:40)
[2024-02-04] MEDS: MAGNESIUM OXIDE 400MG TAB (MAG-OX) PO SCH (09:50)
[2024-02-04 12:41] LABS: CALCIUM LEVEL 8.9 MG/DL (8.3-10.6); CREATININE FOR GFR 3.01 MG/DL (0.70-1.30); GLOMERULAR FILTRATION RATE 21.6 (>42); POTASSIUM SERUM 4.7 MMOL/L (3.5-5.1)
[2024-02-04] MEDS: SODIUM BICARBONATE 150 MEQ in STERILE WATER LITER BAG 1,000 ML IV SCH (15:30)
[2024-02-04] MEDS: PIPERACILLIN/TAZOBACTAM SOD 3.375 GM in D5W MINI-BAG PLUS 50 ML IV SCH (16:57)
[2024-02-04 19:01] LABS: CALCIUM LEVEL 8.6 MG/DL (8.3-10.6); CREATININE FOR GFR 2.9 MG/DL (0.70-1.30); GLOMERULAR FILTRATION RATE 22.6 (>42); POTASSIUM SERUM 4.6 MMOL/L (3.5-5.1)
[2024-02-05] VITALS (44 sets, daily range): BP systolic 86–117; BP diastolic 49–68; TEMP 97.2–98.6; O2SAT 88–100
[2024-02-05] MEDS: ACETAMINOPHEN TAB 650MG DOSE (2X325MG) PO ONE (01:33)
[2024-02-05] MEDS: PERCOCET 5MG/325MG TAB PO ONE ×2 (04:23→22:25)
[2024-02-05] MEDS: ALBUTEROL SULFATE 2.5MG/0.5ML INH NEB SOLN NEB ONE (04:30)
[2024-02-05 04:40] LABS: BASO % 0.4 % (0.0-1.0); EOS # 0.3 10^3/uL (0.0-0.5); EOS % 2.9 % (0.0-3.0); HEMATOCRIT 24.7 % (42.0-52.0); HEMOGLOBIN 8.4 g/dl (13.5-17.5); LYMPH % 9.1 % (24.0-44.0); MEAN CORPUSCULAR HEMOGLOBIN 32.3 pg (27.0-33.0); MONO # 1.1 10^3/uL (0.0-0.8); MONO % 10.3 % (2.0-8.0); NEUTROPHILS # 8.2 10^3/uL (1.5-8.5); NEUTROPHILS % 76.5 % (36.0-66.0); PLATELET COUNT, AUTOMATED 168 10^3/uL (150-450); WHITE BLOOD COUNT 10.8 10^3/uL (4.0-10.0)
[2024-02-05 05:06] LABS: CALCIUM LEVEL 8.5 MG/DL (8.3-10.6); CREATININE FOR GFR 2.7 MG/DL (0.70-1.30); GLOMERULAR FILTRATION RATE 24.5 (>42); POTASSIUM SERUM 4.5 MMOL/L (3.5-5.1)
[2024-02-05] MEDS: PERCOCET 5MG/325MG TAB PO STA (11:32)
[2024-02-05 12:38] LABS: HEMATOCRIT 24.4 % (42.0-52.0); HEMOGLOBIN 8.3 g/dl (13.5-17.5)
[2024-02-05] MEDS ORDERED: LIDOCAINE 1% MDV 20ML VIAL As Ordered ONE (15:03)
[2024-02-06] VITALS (37 sets, daily range): BP systolic 84–131; BP diastolic 40–66; TEMP 96.9–98; O2SAT 89–100
[2024-02-06 05:08] LABS: BASO % 0.4 % (0.0-1.0); EOS # 0.6 10^3/uL (0.0-0.5); EOS % 6.2 % (0.0-3.0); HEMATOCRIT 23.4 % (42.0-52.0); HEMOGLOBIN 7.8 g/dl (13.5-17.5); LYMPH # 1.2 10^3/uL (1.5-5.0); LYMPH % 11.9 % (24.0-44.0); MEAN CORPUSCULAR HEMOGLOBIN 31.7 pg (27.0-33.0); MEAN CORPUSCULAR HGB CONC 33.3 g/dl (32.0-36.5); MEAN CORPUSCULAR VOLUME 95.1 fl (80.0-96.0); MONO # 1.1 10^3/uL (0.0-0.8); MONO % 10.5 % (2.0-8.0); NEUTROPHILS # 7.1 10^3/uL (1.5-8.5); NEUTROPHILS % 69.9 % (36.0-66.0); PLATELET COUNT, AUTOMATED 179 10^3/uL (150-450); RED BLOOD COUNT 2.46 10^6/uL (4.30-6.10); WHITE BLOOD COUNT 10.2 10^3/uL (4.0-10.0)
[2024-02-06 05:41] LABS: CALCIUM LEVEL 8.4 MG/DL (8.3-10.6); CREATININE FOR GFR 2.73 MG/DL (0.70-1.30); GLOMERULAR FILTRATION RATE 24.2 (>42); MAGNESIUM LEVEL 1.9 MG/DL (1.8-2.4); POTASSIUM SERUM 4.4 MMOL/L (3.5-5.1)
[2024-02-06] MEDS: PERCOCET 5MG/325MG TAB PO PRN (08:16)
[2024-02-06] MEDS: DOCUSATE SODIUM 100MG CAPSULE PO SCH (10:48)
[2024-02-06] MEDS: MIRALAX *UNIT DOSE* 17GM PACKET PO SCH (10:49)
[2024-02-06] MEDS: ASPIRIN 81MG ENTERIC TABLET PO SCH (10:49)
[2024-02-06] MEDS: allopurinoL 100 MG TAB PO SCH (10:49)
[2024-02-06] MEDS: TORSEMIDE 20 MG TAB PO SCH (10:49)
[2024-02-06] MEDS: MIDODRINE 5 MG TAB PO PRN (17:10)
[2024-02-06] MEDS: SENNA 8.6 MG TAB (SENOKOT) PO SCH (20:55)
[2024-02-06] MEDS: FERROUS SULFATE 325MG TAB PO SCH (20:55)
[2024-02-06] MEDS: ATORVASTATIN 20 MG TAB PO SCH (20:56)
[2024-02-07] VITALS (8 sets, daily range): BP systolic 93–116; BP diastolic 51–61; TEMP 96.9–98.5; O2SAT 97–99
[2024-02-07 05:01] LABS: BASO % 0.4 % (0.0-1.0); EOS # 0.8 10^3/uL (0.0-0.5); HEMATOCRIT 26.2 % (42.0-52.0); HEMOGLOBIN 8.8 g/dl (13.5-17.5); LYMPH # 1.1 10^3/uL (1.5-5.0); LYMPH % 9.8 % (24.0-44.0); MEAN CORPUSCULAR HEMOGLOBIN 31.8 pg (27.0-33.0); MEAN CORPUSCULAR HGB CONC 33.6 g/dl (32.0-36.5); MEAN CORPUSCULAR VOLUME 94.6 fl (80.0-96.0); MONO # 1.2 10^3/uL (0.0-0.8); MONO % 11.3 % (2.0-8.0); NEUTROPHILS # 7.6 10^3/uL (1.5-8.5); NEUTROPHILS % 70.8 % (36.0-66.0); PLATELET COUNT, AUTOMATED 191 10^3/uL (150-450); RED BLOOD COUNT 2.77 10^6/uL (4.30-6.10); WHITE BLOOD COUNT 10.7 10^3/uL (4.0-10.0)
[2024-02-07 05:12] LABS: CALCIUM LEVEL 8.3 MG/DL (8.3-10.6); CREATININE FOR GFR 2.65 MG/DL (0.70-1.30); GLOMERULAR FILTRATION RATE 25.1 (>42); POTASSIUM SERUM 4.7 MMOL/L (3.5-5.1)
[2024-02-07 11:33] LABS: PERCENT SATURATION 11.4 % (19.7-50.0)
[2024-02-08] VITALS (11 sets, daily range): BP systolic 95–127; BP diastolic 42–83; TEMP 96.6–97.9; O2SAT 91–98
[2024-02-08 06:31] LABS: BASO % 0.3 % (0.0-1.0); EOS # 0.7 10^3/uL (0.0-0.5); EOS % 7.5 % (0.0-3.0); HEMATOCRIT 25.7 % (42.0-52.0); HEMOGLOBIN 8.4 g/dl (13.5-17.5); LYMPH % 10.8 % (24.0-44.0); MEAN CORPUSCULAR HEMOGLOBIN 31.8 pg (27.0-33.0); MEAN CORPUSCULAR HGB CONC 32.7 g/dl (32.0-36.5); MEAN CORPUSCULAR VOLUME 97.3 fl (80.0-96.0); MONO # 1.2 10^3/uL (0.0-0.8); MONO % 13.1 % (2.0-8.0); NEUTROPHILS # 6.3 10^3/uL (1.5-8.5); NEUTROPHILS % 67.4 % (36.0-66.0); PLATELET COUNT, AUTOMATED 205 10^3/uL (150-450); RED BLOOD COUNT 2.64 10^6/uL (4.30-6.10); WHITE BLOOD COUNT 9.3 10^3/uL (4.0-10.0)
[2024-02-08 07:03] LABS: CALCIUM LEVEL 8.8 MG/DL (8.3-10.6); CREATININE FOR GFR 2.54 MG/DL (0.70-1.30); GLOMERULAR FILTRATION RATE 26.3 (>42); POTASSIUM SERUM 5.5 MMOL/L (3.5-5.1)
[2024-02-08] MEDS ORDERED: MIDODRINE 2.5 MG TAB PO PRN (08:00)
[2024-02-08] MEDS: FERRIC CARBOXYMALTOSE INJ 750 MG, VIAL MATE ADAPTER 1 EACH in NS 250 ML IV ONE (12:06)
[2024-02-08] MEDS: PATIROMER SORBITEX CALCIUM 8.4 GM POWDER PACKET (VELTASSA) PO SCH (17:41)
[2024-02-08] MEDS: diphenhydrAMINE 50MG/ML VIAL IV ONE (23:54)
[2024-02-09] VITALS (14 sets, daily range): BP systolic 107–131; BP diastolic 56–65; TEMP 96.4–97.8; O2SAT 93–99
[2024-02-09] MEDS: ROPIvacaine 0.5% 30ML VIAL PN ONE (07:05)
[2024-02-09] MEDS ORDERED: MIDAZOLAM INJ 2MG/2ML VIAL IV PRN (07:05)
[2024-02-09] MEDS: LIDOCAINE 1% SDV 5ML VIAL PN ONE (07:05)
[2024-02-09] MEDS ORDERED: fentaNYL 100 MCG/2 ML INJECTION IV PRN ×2 (07:05→09:20)
[2024-02-09] MEDS ORDERED: fentaNYL 100 MCG/2 ML INJECTION As Ordered ONE (07:55)
[2024-02-09] MEDS ORDERED: MIDAZOLAM INJ 2MG/2ML VIAL As Ordered ONE (07:55)
[2024-02-09] MEDS ORDERED: propofoL 200 MG/20 ML VIAL As Ordered ONE (07:55)
[2024-02-09] MEDS ORDERED: LIDOCAINE 2% 100MG/5ML SDV (FOR ANES.) As Ordered ONE (07:55)
[2024-02-09 08:34] LABS: BASO # 0.1 10^3/uL (0.0-0.2); BASO % 0.5 % (0.0-1.0); EOS # 0.7 10^3/uL (0.0-0.5); EOS % 7.2 % (0.0-3.0); HEMATOCRIT 31.4 % (42.0-52.0); LYMPH # 0.8 10^3/uL (1.5-5.0); LYMPH % 8.3 % (24.0-44.0); MEAN CORPUSCULAR HGB CONC 33.1 g/dl (32.0-36.5); MEAN CORPUSCULAR VOLUME 93.7 fl (80.0-96.0); MONO # 1.3 10^3/uL (0.0-0.8); MONO % 12.8 % (2.0-8.0); NEUTROPHILS # 6.9 10^3/uL (1.5-8.5); NEUTROPHILS % 70.2 % (36.0-66.0); PLATELET COUNT, AUTOMATED 227 10^3/uL (150-450); RED BLOOD COUNT 3.35 10^6/uL (4.30-6.10); WHITE BLOOD COUNT 9.9 10^3/uL (4.0-10.0)
[2024-02-09 08:58] LABS: ALBUMIN 2.8 G/DL (3.2-5.2); BILIRUBIN,TOTAL 1.5 MG/DL (0.3-1.2); CALCIUM LEVEL 8.9 MG/DL (8.3-10.6); CREATININE FOR GFR 2.2 MG/DL (0.70-1.30); GLOMERULAR FILTRATION RATE 31.1 (>42); POTASSIUM SERUM 4.6 MMOL/L (3.5-5.1); TOTAL PROTEIN 5.5 G/DL (5.7-8.2)
[2024-02-09 09:07] LABS: HEMOGLOBIN 10.4 g/dl (13.5-17.5)
[2024-02-09] MEDS ORDERED: oxyCODONE 5MG TAB PO PRN (09:20)
[2024-02-09] MEDS ORDERED: ONDANSETRON 4MG 2ML VIAL IV PRN (09:20)
[2024-02-09] MEDS: ALBUTEROL SULFATE 2.5MG/0.5ML INH NEB SOLN INH ONE (09:20)
[2024-02-09] MEDS ORDERED: HYDROMORPHONE HCL 0.5 MG/ 0.5 ML SYRINGE IV PRN (09:20)
[2024-02-10 03:59] VITALS: BP 137/63; TEMP 96.7; O2SAT 97
[2024-02-10 06:49] LABS: BASO % 0.3 % (0.0-1.0); EOS # 0.6 10^3/uL (0.0-0.5); EOS % 6.1 % (0.0-3.0); HEMATOCRIT 30.3 % (42.0-52.0); HEMOGLOBIN 9.9 g/dl (13.5-17.5); LYMPH # 0.8 10^3/uL (1.5-5.0); LYMPH % 8.5 % (24.0-44.0); MEAN CORPUSCULAR HEMOGLOBIN 30.8 pg (27.0-33.0); MEAN CORPUSCULAR HGB CONC 32.7 g/dl (32.0-36.5); MEAN CORPUSCULAR VOLUME 94.4 fl (80.0-96.0); MONO # 1.4 10^3/uL (0.0-0.8); MONO % 14.6 % (2.0-8.0); NEUTROPHILS # 6.4 10^3/uL (1.5-8.5); NEUTROPHILS % 69.8 % (36.0-66.0); PLATELET COUNT, AUTOMATED 234 10^3/uL (150-450); RED BLOOD COUNT 3.21 10^6/uL (4.30-6.10); WHITE BLOOD COUNT 9.2 10^3/uL (4.0-10.0)
[2024-02-10 07:26] LABS: CALCIUM LEVEL 8.4 MG/DL (8.3-10.6); CREATININE FOR GFR 2.17 MG/DL (0.70-1.30); GLOMERULAR FILTRATION RATE 31.5 (>42); POTASSIUM SERUM 4.7 MMOL/L (3.5-5.1)
[2024-02-10 08:00] VITALS: BP 119/55; TEMP 97.3; O2SAT 96
[2024-02-10 12:00] VITALS: BP 115/56; TEMP 97.1; O2SAT 100
[2024-02-10] MEDS: FERRIC CARBOXYMALTOSE INJ 750 MG, VIAL MATE ADAPTER 1 EACH in NS 250 ML IV ONE (13:11)
[2024-02-10] MEDS ORDERED: ACETAMINOPHEN 500 MG TAB PO PRN (15:30)
[2024-02-10 16:00] VITALS: BP 105/58; TEMP 97.6; O2SAT 100
[2024-02-10] MEDS: NEOSPORIN OINT 0.9 GM PKT TOP ONE (17:53)
[2024-02-10 20:36] VITALS: BP 129/60; TEMP 97.3; O2SAT 100
[2024-02-11] VITALS (8 sets, daily range): BP systolic 91–131; BP diastolic 52–68; TEMP 97–97.8; O2SAT 97–100
[2024-02-11] MEDS: METOPROLOL TART 25 MG TABLET PO ONE (04:12)
[2024-02-11 16:51] LABS: HEMATOCRIT 33.7 % (42.0-52.0); HEMOGLOBIN 10.6 g/dl (13.5-17.5); MEAN CORPUSCULAR HEMOGLOBIN 30.4 pg (27.0-33.0); MEAN CORPUSCULAR HGB CONC 31.5 g/dl (32.0-36.5); MEAN CORPUSCULAR VOLUME 96.6 fl (80.0-96.0); PLATELET COUNT, AUTOMATED 239 10^3/uL (150-450); RED BLOOD COUNT 3.49 10^6/uL (4.30-6.10); WHITE BLOOD COUNT 9.6 10^3/uL (4.0-10.0)
[2024-02-11 17:21] LABS: ALBUMIN 2.8 G/DL (3.2-5.2); BILIRUBIN,TOTAL 0.7 MG/DL (0.3-1.2); CALCIUM LEVEL 9.1 MG/DL (8.3-10.6); CREATININE FOR GFR 1.71 MG/DL (0.70-1.30); GLOMERULAR FILTRATION RATE 41.5 (>42); POTASSIUM SERUM 4.2 MMOL/L (3.5-5.1); TOTAL PROTEIN 5.5 G/DL (5.7-8.2)
[2024-02-12 04:16] VITALS: BP 110/55; TEMP 97.3; O2SAT 100
[2024-02-12 06:18] LABS: BASO # 0.1 10^3/uL (0.0-0.2); BASO % 0.5 % (0.0-1.0); EOS # 0.6 10^3/uL (0.0-0.5); EOS % 6.4 % (0.0-3.0); HEMATOCRIT 32.3 % (42.0-52.0); HEMOGLOBIN 10.5 g/dl (13.5-17.5); LYMPH # 0.7 10^3/uL (1.5-5.0); LYMPH % 7.7 % (24.0-44.0); MEAN CORPUSCULAR HEMOGLOBIN 31.5 pg (27.0-33.0); MEAN CORPUSCULAR HGB CONC 32.5 g/dl (32.0-36.5); MONO # 1.2 10^3/uL (0.0-0.8); MONO % 12.8 % (2.0-8.0); NEUTROPHILS # 6.6 10^3/uL (1.5-8.5); NEUTROPHILS % 72.1 % (36.0-66.0); RED BLOOD COUNT 3.33 10^6/uL (4.30-6.10); WHITE BLOOD COUNT 9.2 10^3/uL (4.0-10.0)
[2024-02-12 06:35] LABS: ALBUMIN 2.8 G/DL (3.2-5.2); BILIRUBIN,TOTAL 0.8 MG/DL (0.3-1.2); CALCIUM LEVEL 9.1 MG/DL (8.3-10.6); CREATININE FOR GFR 1.66 MG/DL (0.70-1.30); TOTAL PROTEIN 5.6 G/DL (5.7-8.2)
[2024-02-12 06:58] LABS: PLATELET COUNT, AUTOMATED 256 10^3/uL (150-450)
[2024-02-12 08:18] VITALS: BP 109/52; TEMP 97.1; O2SAT 98
[2024-02-12] MEDS: DARBEPOETIN 100MCG/0.5ML *NON-DIALYSIS* SYRINGE SC SCH (09:14)
[2024-02-12] MEDS: APIXABAN 5 MG TAB (ELIQUIS) PO SCH (09:16)
[2024-02-12 13:07] VITALS: BP 112/52; TEMP 97; O2SAT 100
[2024-02-12 15:41] VITALS: BP 114/58; TEMP 97.5; O2SAT 98
[2024-02-12 19:36] VITALS: BP 101/55; TEMP 97.1; O2SAT 98
[2024-02-12 23:02] VITALS: BP 110/57; TEMP 97.4; O2SAT 98
[2024-02-13 06:40] LABS: BASO # 0.1 10^3/uL (0.0-0.2); BASO % 0.7 % (0.0-1.0); EOS # 0.6 10^3/uL (0.0-0.5); EOS % 6.3 % (0.0-3.0); HEMATOCRIT 32.3 % (42.0-52.0); HEMOGLOBIN 10.5 g/dl (13.5-17.5); LYMPH # 0.8 10^3/uL (1.5-5.0); LYMPH % 7.5 % (24.0-44.0); MEAN CORPUSCULAR HEMOGLOBIN 31.3 pg (27.0-33.0); MEAN CORPUSCULAR HGB CONC 32.5 g/dl (32.0-36.5); MEAN CORPUSCULAR VOLUME 96.4 fl (80.0-96.0); MONO # 1.5 10^3/uL (0.0-0.8); MONO % 15.4 % (2.0-8.0); NEUTROPHILS % 69.4 % (36.0-66.0); PLATELET COUNT, AUTOMATED 237 10^3/uL (150-450); RED BLOOD COUNT 3.35 10^6/uL (4.30-6.10)
[2024-02-13 07:08] LABS: CALCIUM LEVEL 9.4 MG/DL (8.3-10.6); CREATININE FOR GFR 1.69 MG/DL (0.70-1.30); GLOMERULAR FILTRATION RATE 42.1 (>42); MAGNESIUM LEVEL 2.1 MG/DL (1.8-2.4); POTASSIUM SERUM 4.5 MMOL/L (3.5-5.1)
[2024-02-13 07:57] VITALS: BP 104/54; TEMP 96.8; O2SAT 99
[2024-02-13] MEDS: TORSEMIDE (DEMADEX) 50 MG PER 1/2 TAB PO SCH (07:59)
[2024-02-13 12:08] VITALS: BP 109/60; TEMP 96.8; O2SAT 100
[2024-02-13 20:00] VITALS: BP 111/59; TEMP 96.8; O2SAT 98
[2024-02-13] MEDS: METOPROLOL SUCC *XL* 12.5MG PER 1/2 TAB (TopROL *XL*) PO SCH (20:41)
[2024-02-14 04:00] VITALS: BP 109/62; TEMP 96.8; O2SAT 95
[2024-02-14 08:32] VITALS: BP 127/58; O2SAT 99
[2024-02-14 08:33] LABS: BASO # 0.1 10^3/uL (0.0-0.2); BASO % 0.9 % (0.0-1.0); EOS # 0.4 10^3/uL (0.0-0.5); EOS % 4.9 % (0.0-3.0); HEMATOCRIT 35.2 % (42.0-52.0); HEMOGLOBIN 11.1 g/dl (13.5-17.5); LYMPH # 0.7 10^3/uL (1.5-5.0); MEAN CORPUSCULAR HEMOGLOBIN 31.4 pg (27.0-33.0); MEAN CORPUSCULAR HGB CONC 31.5 g/dl (32.0-36.5); MEAN CORPUSCULAR VOLUME 99.4 fl (80.0-96.0); MONO # 1.4 10^3/uL (0.0-0.8); MONO % 15.5 % (2.0-8.0); NEUTROPHILS # 6.3 10^3/uL (1.5-8.5); NEUTROPHILS % 70.3 % (36.0-66.0); PLATELET COUNT, AUTOMATED 242 10^3/uL (150-450); RED BLOOD COUNT 3.54 10^6/uL (4.30-6.10); WHITE BLOOD COUNT 8.9 10^3/uL (4.0-10.0)
[2024-02-14 08:54] LABS: CREATININE FOR GFR 1.61 MG/DL (0.70-1.30); GLOMERULAR FILTRATION RATE 44.5 (>42); POTASSIUM SERUM 4.3 MMOL/L (3.5-5.1)
== END 2024-02-14 16:13 | disposition home or self-care (01) | DRG 579 ==
LOC: EDBD 21:15 → M ED 21:15 → M ED INP 02-04 01:34 → M ICU 02-04 02:54 → M PCU 02-07 17:05
PROVIDERS: ADMIT Student in an Organized Health Care Education/Training Program; ATTEND General Practice
PROC: 30233N1 Transfusion of Nonautologous Red Blood Cells into Peripheral Vein, Percutaneous Approach (ICD-10-PCS; 2024-02-04)
PROC: B246ZZZ Ultrasonography of Right and Left Heart (ICD-10-PCS; 2024-02-04)
PROC: 0Y9J30Z Drainage of Left Lower Leg with Drainage Device, Percutaneous Approach (ICD-10-PCS; 2024-02-05)
PROC: 0JCP0ZZ Extirpation of Matter from Left Lower Leg Subcutaneous Tissue and Fascia, Open Approach (ICD-10-PCS; principal; 2024-02-09 08:00)
DX: S80.12XA Contusion of left lower leg, initial encounter (principal); R57.8 Other shock; I21.A1 Myocardial infarction type 2; N17.9 Acute kidney failure, unspecified; I50.22 Chronic systolic (congestive) heart failure; I13.0 Hypertensive heart and chronic kidney disease with heart failure and stage 1 through stage 4 chronic kidney disease, or unspecified chronic kidney disease; D62 Acute posthemorrhagic anemia; J98.11 Atelectasis; E87.1 Hypo-osmolality and hyponatremia; D68.32 Hemorrhagic disorder due to extrinsic circulating anticoagulants; E87.20 Acidosis, unspecified; E11.22 Type 2 diabetes mellitus with diabetic chronic kidney disease; I73.9 Peripheral vascular disease, unspecified; E11.51 Type 2 diabetes mellitus with diabetic peripheral angiopathy without gangrene; I27.20 Pulmonary hypertension, unspecified; I25.10 Atherosclerotic heart disease of native coronary artery without angina pectoris; N18.30 Chronic kidney disease, stage 3 unspecified; D50.9 Iron deficiency anemia, unspecified; I48.91 Unspecified atrial fibrillation; Z87.891 Personal history of nicotine dependence; Z95.810 Presence of automatic (implantable) cardiac defibrillator; Z95.5 Presence of coronary angioplasty implant and graft; I95.89 Other hypotension; I87.2 Venous insufficiency (chronic) (peripheral); E87.6 Hypokalemia; Z79.01 Long term (current) use of anticoagulants; Z79.84 Long term (current) use of oral hypoglycemic drugs; Z79.82 Long term (current) use of aspirin; Z79.899 Other long term (current) drug therapy; Z88.8 Allergy status to other drugs, medicaments and biological substances

== ENCOUNTER 2024-02-28 09:04 | Inpatient (IN) | payer OTHER ==
[~2024-02-28] VITALS: Ht 165.1 cm; Wt 106.7 kg
[~2024-02-28 09:04] MED LIST changes: +CARV6.25 PO; +FARX1TAB5 PO
[2024-02-28] MEDS ORDERED: ISOVUE-370 76% 100ML VIAL As Ordered ONE (09:32)
[2024-02-28 09:51] LABS: VENOUS BASE EXCESS -1.6 (-2.0-2.0); VENOUS HCO3 23.6 MMOL/L (23.0-27.0); VENOUS O2 SATURATION 76.3 % (60.0-80.0); VENOUS PARTIAL PRESSURE CO2 41.5 mmHg (38.0-50.0); VENOUS PH 7.372 UNITS (7.330-7.430); VENOUS STANDARD HCO3 22.7 MMOL/L; VENOUS TOTAL CO2 24.8 MMOL/L (24.0-28.0)
[2024-02-28 09:56] LABS: BASO # 0.1 10^3/uL (0.0-0.2); BASO % 0.9 % (0.0-1.0); EOS # 0.5 10^3/uL (0.0-0.5); EOS % 6.7 % (0.0-3.0); HEMATOCRIT 35.9 % (42.0-52.0); HEMOGLOBIN 11.3 g/dl (13.5-17.5); LYMPH # 0.8 10^3/uL (1.5-5.0); LYMPH % 9.9 % (24.0-44.0); MEAN CORPUSCULAR HEMOGLOBIN 31.4 pg (27.0-33.0); MEAN CORPUSCULAR HGB CONC 31.5 g/dl (32.0-36.5); MEAN CORPUSCULAR VOLUME 99.7 fl (80.0-96.0); MONO # 1.1 10^3/uL (0.0-0.8); MONO % 14.2 % (2.0-8.0); NEUTROPHILS # 5.3 10^3/uL (1.5-8.5); NEUTROPHILS % 67.8 % (36.0-66.0); PLATELET COUNT, AUTOMATED 168 10^3/uL (150-450); WHITE BLOOD COUNT 7.8 10^3/uL (4.0-10.0)
[2024-02-28] MEDS: NS 500 ML IV ONE (10:01)
[2024-02-28 10:07] LABS: INR 1.52; PARTIAL THROMBOPLASTIN TIME 64.9 SECONDS (24.8-34.2); PROTHROMBIN TIME 17.8 SECONDS (12.5-14.5)
[2024-02-28 10:19] LABS: LIPASE 24 U/L (12-53)
[2024-02-28 10:20] LABS: AMYLASE 58 U/L (30-118)
[2024-02-28 10:21] LABS: ALBUMIN 3.4 G/DL (3.2-5.2); ALKALINE PHOSPHATASE 130 U/L (46-116); ALT/SGPT 17 U/L (7.0-40); AST/SGOT 10 U/L (<34); BILIRUBIN,DIRECT 0.5 MG/DL (<0.4); BILIRUBIN,TOTAL 0.8 MG/DL (0.3-1.2); BLOOD UREA NITROGEN 54 MG/DL (9-23); CALCIUM LEVEL 9.2 MG/DL (8.3-10.6); CARBON DIOXIDE LEVEL 28 MMOL/L (20-31); CHLORIDE LEVEL 103 MMOL/L (98-107); CREATININE FOR GFR 2.04 MG/DL (0.70-1.30); GLOMERULAR FILTRATION RATE 33.9 (>42); GLUCOSE, FASTING 99 MG/DL (74-106); POTASSIUM SERUM 4.7 MMOL/L (3.5-5.1); SODIUM LEVEL 137 MMOL/L (136-145); TOTAL PROTEIN 5.9 G/DL (5.7-8.2)
[2024-02-28 10:23] LABS: ETHYL ALCOHOL (ETHANOL) < 0.003 % (0.000-0.010)
[2024-02-28] MEDS: MORPHINE 2 MG/ML 1ML VIAL IV PRN (10:24)
[2024-02-28 10:32] LABS: PROCALCITONIN 0.11 ng/ml
[2024-02-28 14:15] LABS: HEMATOCRIT 36.1 % (42.0-52.0); HEMOGLOBIN 11.3 g/dl (13.5-17.5); MEAN CORPUSCULAR HEMOGLOBIN 31.7 pg (27.0-33.0); MEAN CORPUSCULAR HGB CONC 31.3 g/dl (32.0-36.5); MEAN CORPUSCULAR VOLUME 101.4 fl (80.0-96.0); PLATELET COUNT, AUTOMATED 164 10^3/uL (150-450); RED BLOOD COUNT 3.56 10^6/uL (4.30-6.10)
[2024-02-28] MEDS ORDERED: ACET-840 PO (14:27)
[2024-02-28] MEDS ORDERED: FERR324T2 PO (14:27)
[2024-02-28] MEDS ORDERED: HOME MED LIST COMPLETE! XX SCH (14:30)
[2024-02-28] MEDS ORDERED: MIDODRINE 5 MG TAB PO PRN (14:40)
[2024-02-28 14:45] LABS: CK-MB VALUE MASS < 1.0 NG/ML (<3.6)
[2024-02-28 14:46] LABS: CPK CREATINE PHOSPHOKINASE 59 U/L (46-171); MB/CK RELATIVE INDEX 1.69 (< OR =4)
[2024-02-28] MEDS ORDERED: PILL CUTTER 1 EACH XX PRN (14:55)
[2024-02-28] MEDS: NS 1,000 ML IV SCH (15:01)
[2024-02-28] MEDS ORDERED: DEXTROSE 50% 50ML SYRINGE IV PRN (20:30)
[2024-02-28] MEDS ORDERED: GLUCOSE 4 GM CHEW PO PRN (20:30)
[2024-02-28] MEDS ORDERED: GLUCAGON INJ 1MG VIAL SC PRN (20:30)
[2024-02-28] MEDS: APIXABAN 5 MG TAB (ELIQUIS) PO SCH (20:39)
[2024-02-28] MEDS: ATORVASTATIN 20 MG TAB PO SCH (20:39)
[2024-02-28] MEDS: CARVedilol 3.125 MG TAB PO SCH (20:40)
[2024-02-28] MEDS: MAGNESIUM OXIDE 400MG TAB (MAG-OX) PO SCH (20:40)
[2024-02-28] MEDS: allopurinoL 100 MG TAB PO SCH (20:40)
[2024-02-28] MEDS: INSULIN LISPRO (NovoLOG) PER UNIT SC SCH (20:51)
[2024-02-28 21:00] VITALS: BP 99/64; TEMP 97.2; O2SAT 97
[2024-02-28] MEDS: ACETAMINOPHEN 500 MG TAB PO PRN (21:34)
[2024-02-29 04:00] VITALS: BP 102/60; TEMP 97.3; O2SAT 97
[2024-02-29] MEDS: INSULIN LISPRO (NovoLOG) PER UNIT SC SCH (07:54)
[2024-02-29] MEDS: ASPIRIN 81MG ENTERIC TABLET PO SCH (07:55)
[2024-02-29] MEDS: POTASSIUM CHLORIDE 10MEQ SR TABLET PO SCH (07:56)
[2024-02-29 09:00] VITALS: BP 104/57
[2024-02-29] MEDS: MIDODRINE 5 MG TAB PO SCH (12:00)
[2024-02-29 12:08] LABS: HEMATOCRIT 34.4 % (42.0-52.0); HEMOGLOBIN 10.8 g/dl (13.5-17.5); MEAN CORPUSCULAR HEMOGLOBIN 31.4 pg (27.0-33.0); MEAN CORPUSCULAR HGB CONC 31.4 g/dl (32.0-36.5); PLATELET COUNT, AUTOMATED 169 10^3/uL (150-450); RED BLOOD COUNT 3.44 10^6/uL (4.30-6.10); WHITE BLOOD COUNT 7.8 10^3/uL (4.0-10.0)
[2024-02-29 12:37] LABS: CALCIUM LEVEL 8.8 MG/DL (8.3-10.6); CREATININE FOR GFR 1.72 MG/DL (0.70-1.30); GLOMERULAR FILTRATION RATE 41.3 (>42); POTASSIUM SERUM 4.9 MMOL/L (3.5-5.1)
[2024-02-29 13:12] VITALS: BP 116/62
[2024-02-29] MEDS: TORSEMIDE 20 MG TAB PO ONE (13:20)
[2024-02-29] MEDS: FLUBLOK(EGGFREE) TRIVAL(24-25) VACCINE PF 0.5ML SYRINGE 18YRS & OLDER IM.IMMUN ONE (14:50)
[2024-02-29] MEDS: PREVNAR-20 VACCINE 0.5ML SYRINGE IM.IMMUN ONE (17:35)
[2024-02-29 20:01] VITALS: BP 106/53; TEMP 97.3; O2SAT 99
[2024-03-01 04:00] VITALS: BP 123/69; TEMP 97.2; O2SAT 97
[2024-03-01 06:52] LABS: HEMATOCRIT 32.9 % (42.0-52.0); HEMOGLOBIN 10.5 g/dl (13.5-17.5); MEAN CORPUSCULAR HEMOGLOBIN 31.5 pg (27.0-33.0); MEAN CORPUSCULAR HGB CONC 31.9 g/dl (32.0-36.5); MEAN CORPUSCULAR VOLUME 98.8 fl (80.0-96.0); PLATELET COUNT, AUTOMATED 164 10^3/uL (150-450); RED BLOOD COUNT 3.33 10^6/uL (4.30-6.10); WHITE BLOOD COUNT 8.9 10^3/uL (4.0-10.0)
[2024-03-01 07:10] LABS: CREATININE FOR GFR 1.81 MG/DL (0.70-1.30); GLOMERULAR FILTRATION RATE 38.9 (>42); POTASSIUM SERUM 4.8 MMOL/L (3.5-5.1)
[2024-03-01 07:40] VITALS: BP 108/58
[2024-03-01] MEDS ORDERED: TORSEMIDE 20 MG TAB PO SCH (09:00)
[2024-03-01 12:00] VITALS: BP 112/54; TEMP 97.3; O2SAT 99
[2024-03-01 18:09] VITALS: BP 111/55
[2024-03-01] MEDS: TORSEMIDE (DEMADEX) 50 MG PER 1/2 TAB PO SCH (18:09)
[2024-03-01 20:36] VITALS: BP 107/54; TEMP 97.3; O2SAT 97
[2024-03-02 04:00] VITALS: BP 127/56; TEMP 97.3; O2SAT 95
[2024-03-02 06:25] LABS: HEMATOCRIT 34.6 % (42.0-52.0); HEMOGLOBIN 10.9 g/dl (13.5-17.5); MEAN CORPUSCULAR HEMOGLOBIN 31.3 pg (27.0-33.0); MEAN CORPUSCULAR HGB CONC 31.5 g/dl (32.0-36.5); MEAN CORPUSCULAR VOLUME 99.4 fl (80.0-96.0); PLATELET COUNT, AUTOMATED 180 10^3/uL (150-450); RED BLOOD COUNT 3.48 10^6/uL (4.30-6.10); WHITE BLOOD COUNT 9.4 10^3/uL (4.0-10.0)
[2024-03-02 06:53] LABS: CALCIUM LEVEL 8.7 MG/DL (8.3-10.6); CREATININE FOR GFR 1.73 MG/DL (0.70-1.30); POTASSIUM SERUM 4.7 MMOL/L (3.5-5.1)
[2024-03-02 12:00] VITALS: BP 124/55; TEMP 97.5; O2SAT 100
[2024-03-02 16:52] VITALS: BP 108/51
[2024-03-02] MEDS: MIDODRINE 5 MG TAB PO ONE (17:06)
[2024-03-02 18:56] VITALS: BP 109/52
[2024-03-02 20:30] VITALS: BP 119/52; TEMP 97.3; O2SAT 100
[2024-03-03 04:18] VITALS: BP 122/54; TEMP 97.2; O2SAT 96
[2024-03-03 06:35] LABS: HEMATOCRIT 35.9 % (42.0-52.0); HEMOGLOBIN 11.4 g/dl (13.5-17.5); MEAN CORPUSCULAR HEMOGLOBIN 31.7 pg (27.0-33.0); MEAN CORPUSCULAR HGB CONC 31.8 g/dl (32.0-36.5); MEAN CORPUSCULAR VOLUME 99.7 fl (80.0-96.0); PLATELET COUNT, AUTOMATED 185 10^3/uL (150-450); WHITE BLOOD COUNT 10.1 10^3/uL (4.0-10.0)
[2024-03-03 07:09] LABS: CALCIUM LEVEL 8.8 MG/DL (8.3-10.6); CREATININE FOR GFR 1.61 MG/DL (0.70-1.30); GLOMERULAR FILTRATION RATE 44.5 (>42); POTASSIUM SERUM 4.2 MMOL/L (3.5-5.1)
[2024-03-03 12:00] VITALS: BP 133/73; TEMP 97.3; O2SAT 100
[2024-03-03] MEDS: cefTRIAXone SOD 2 GM in D5W MINI-BAG PLUS 50 ML IV SCH (12:45)
[2024-03-03 20:38] VITALS: BP 126/64; TEMP 97.3; O2SAT 100
[2024-03-04 05:05] VITALS: BP 136/65; TEMP 97.7; O2SAT 100
[2024-03-04 07:32] LABS: HEMATOCRIT 37.4 % (42.0-52.0); MEAN CORPUSCULAR HEMOGLOBIN 31.3 pg (27.0-33.0); MEAN CORPUSCULAR HGB CONC 32.1 g/dl (32.0-36.5); MEAN CORPUSCULAR VOLUME 97.4 fl (80.0-96.0); PLATELET COUNT, AUTOMATED 196 10^3/uL (150-450); RED BLOOD COUNT 3.84 10^6/uL (4.30-6.10); WHITE BLOOD COUNT 10.7 10^3/uL (4.0-10.0)
[2024-03-04 07:54] LABS: CALCIUM LEVEL 9.2 MG/DL (8.3-10.6); CREATININE FOR GFR 1.52 MG/DL (0.70-1.30); GLOMERULAR FILTRATION RATE 47.6 (>42); POTASSIUM SERUM 3.6 MMOL/L (3.5-5.1)
[2024-03-04] MEDS: POTASSIUM CHLORIDE 10MEQ SR TABLET PO SCH (08:44)
[2024-03-04 12:00] VITALS: BP 130/65; TEMP 97.3; O2SAT 98
[2024-03-04] MEDS: SPIRONOLACTONE 25 MG TAB PO SCH (12:19)
[2024-03-04 20:42] VITALS: BP 115/50; TEMP 97.7; O2SAT 98
[2024-03-05 05:10] VITALS: BP 116/51; TEMP 97.7; O2SAT 96
[2024-03-05 06:24] LABS: HEMATOCRIT 34.7 % (42.0-52.0); HEMOGLOBIN 11.1 g/dl (13.5-17.5); MEAN CORPUSCULAR HEMOGLOBIN 31.1 pg (27.0-33.0); MEAN CORPUSCULAR VOLUME 97.2 fl (80.0-96.0); PLATELET COUNT, AUTOMATED 197 10^3/uL (150-450); RED BLOOD COUNT 3.57 10^6/uL (4.30-6.10); WHITE BLOOD COUNT 10.5 10^3/uL (4.0-10.0)
[2024-03-05 06:52] LABS: CREATININE FOR GFR 1.57 MG/DL (0.70-1.30); GLOMERULAR FILTRATION RATE 45.8 (>42); POTASSIUM SERUM 4.5 MMOL/L (3.5-5.1)
[2024-03-05 12:43] VITALS: BP 117/47; TEMP 97.3; O2SAT 100
[2024-03-05] MEDS: FUROSEMIDE 100MG/10ML VIAL IV ONE (12:45)
[2024-03-05] MEDS: LevoFLOXacin 750 MG TABLET PO SCH (14:45)
[2024-03-05 17:37] VITALS: BP 104/50
[2024-03-05] MEDS: TORSEMIDE 100 MG TAB PO SCH (18:18)
[2024-03-05 19:55] VITALS: BP 96/48; TEMP 97.3; O2SAT 96
[2024-03-06 03:55] VITALS: BP 119/9; TEMP 97.3; O2SAT 99
[2024-03-06 06:30] LABS: HEMATOCRIT 32.3 % (42.0-52.0); HEMOGLOBIN 10.3 g/dl (13.5-17.5); MEAN CORPUSCULAR HEMOGLOBIN 30.9 pg (27.0-33.0); MEAN CORPUSCULAR HGB CONC 31.9 g/dl (32.0-36.5); PLATELET COUNT, AUTOMATED 193 10^3/uL (150-450); RED BLOOD COUNT 3.33 10^6/uL (4.30-6.10); WHITE BLOOD COUNT 9.6 10^3/uL (4.0-10.0)
[2024-03-06 06:49] LABS: CALCIUM LEVEL 8.8 MG/DL (8.3-10.6); CREATININE FOR GFR 1.69 MG/DL (0.70-1.30); GLOMERULAR FILTRATION RATE 42.1 (>42); POTASSIUM SERUM 3.9 MMOL/L (3.5-5.1)
[2024-03-06 08:07] VITALS: BP 110/50; O2SAT 84
[2024-03-06 12:20] VITALS: BP 112/51; TEMP 97.5; O2SAT 100
[2024-03-06] MEDS: FUROSEMIDE 100MG/10ML VIAL IV ONE (13:36)
[2024-03-06 17:06] VITALS: BP 113/53
[2024-03-06 20:17] VITALS: BP 113/47; TEMP 97.7; O2SAT 100
[2024-03-06] MEDS: RAMELTEON 8 MG TAB (ROZEREM) PO PRN (21:29)
[2024-03-06] MEDS: ACETAMINOPHEN TAB 650MG DOSE (2X325MG) PO PRN (21:29)
[2024-03-07 04:00] VITALS: BP 122/54; TEMP 97.3; O2SAT 99
[2024-03-07 06:41] LABS: HEMATOCRIT 32.7 % (42.0-52.0); HEMOGLOBIN 10.5 g/dl (13.5-17.5); MEAN CORPUSCULAR HEMOGLOBIN 31.7 pg (27.0-33.0); MEAN CORPUSCULAR HGB CONC 32.1 g/dl (32.0-36.5); MEAN CORPUSCULAR VOLUME 98.8 fl (80.0-96.0); PLATELET COUNT, AUTOMATED 213 10^3/uL (150-450); RED BLOOD COUNT 3.31 10^6/uL (4.30-6.10); WHITE BLOOD COUNT 10.7 10^3/uL (4.0-10.0)
[2024-03-07 06:56] LABS: CREATININE FOR GFR 1.64 MG/DL (0.70-1.30); GLOMERULAR FILTRATION RATE 43.6 (>42)
[2024-03-07 12:00] VITALS: BP 124/61; TEMP 97.5; O2SAT 99
[2024-03-07] MEDS: FUROSEMIDE injection 250 MG in D5W 225 ML IV SCH (12:27)
[2024-03-07 17:13] VITALS: BP 122/60
[2024-03-07 20:22] VITALS: BP 108/40; TEMP 96.6; O2SAT 99
[2024-03-07 20:37] VITALS: BP 112/64
[2024-03-08] VITALS (7 sets, daily range): BP systolic 113–129; BP diastolic 59–65; TEMP 96.6–98.3; O2SAT 95–100
[2024-03-08] MEDS: POTASSIUM CHLORIDE 10MEQ SR TABLET PO SCH (12:17)
[2024-03-08] MEDS: metOLazone 2.5 MG TAB PO ONE (15:04)
[2024-03-08] MEDS ORDERED: NYSTATIN 100,000 UNITS/GM TOPICAL PWD 15GM TOP PRN (15:45)
[2024-03-09 00:56] VITALS: O2SAT 95
[2024-03-09 03:22] VITALS: BP 127/61
[2024-03-09 04:00] VITALS: BP 126/60; TEMP 96.8; O2SAT 94
[2024-03-09 06:20] LABS: BASO # 0.1 10^3/uL (0.0-0.2); BASO % 0.5 % (0.0-1.0); EOS % 8.6 % (0.0-3.0); HEMOGLOBIN 10.5 g/dl (13.5-17.5); LYMPH # 0.7 10^3/uL (1.5-5.0); LYMPH % 6.7 % (24.0-44.0); MEAN CORPUSCULAR HEMOGLOBIN 31.8 pg (27.0-33.0); MEAN CORPUSCULAR HGB CONC 32.8 g/dl (32.0-36.5); MONO # 1.3 10^3/uL (0.0-0.8); MONO % 11.4 % (2.0-8.0); NEUTROPHILS % 72.3 % (36.0-66.0); PLATELET COUNT, AUTOMATED 220 10^3/uL (150-450)
[2024-03-09 06:34] LABS: INR 2.09; PARTIAL THROMBOPLASTIN TIME 84.8 SECONDS (24.8-34.2); PROTHROMBIN TIME 22.7 SECONDS (12.5-14.5)
[2024-03-09 06:45] LABS: ALBUMIN 3.1 G/DL (3.2-5.2); CALCIUM LEVEL 8.9 MG/DL (8.3-10.6); CREATININE FOR GFR 1.85 MG/DL (0.70-1.30); GLOMERULAR FILTRATION RATE 37.9 (>42); PHOSPHORUS LEVEL 3.3 MG/DL (2.4-5.1); POTASSIUM SERUM 3.6 MMOL/L (3.5-5.1)
[2024-03-09] MEDS: POTASSIUM CHLORIDE 10MEQ SR TABLET PO SCH (09:35)
[2024-03-09 12:00] VITALS: BP 110/52; TEMP 97.5; O2SAT 97
[2024-03-09 21:44] VITALS: BP 109/54; TEMP 97.2; O2SAT 97
[2024-03-10 04:04] VITALS: BP 126/59; TEMP 97; O2SAT 92
[2024-03-10 06:25] LABS: HEMATOCRIT 31.8 % (42.0-52.0); HEMOGLOBIN 10.4 g/dl (13.5-17.5); MEAN CORPUSCULAR HEMOGLOBIN 31.7 pg (27.0-33.0); MEAN CORPUSCULAR HGB CONC 32.7 g/dl (32.0-36.5); PLATELET COUNT, AUTOMATED 216 10^3/uL (150-450); RED BLOOD COUNT 3.28 10^6/uL (4.30-6.10); WHITE BLOOD COUNT 10.4 10^3/uL (4.0-10.0)
[2024-03-10 06:54] LABS: CALCIUM LEVEL 9.6 MG/DL (8.3-10.6); GLOMERULAR FILTRATION RATE 34.7 (>42); PERCENT SATURATION 24.8 % (19.7-50.0); PHOSPHORUS LEVEL 3.8 MG/DL (2.4-5.1); POTASSIUM SERUM 4.1 MMOL/L (3.5-5.1)
[2024-03-10 06:55] LABS: FERRITIN 974.9 NG/ML (10.5-307.3)
[2024-03-10 12:00] VITALS: BP 128/61; TEMP 96.8; O2SAT 99
[2024-03-10 20:00] VITALS: BP 109/58; TEMP 97.2; O2SAT 96
[2024-03-11 04:00] VITALS: BP 111/53; TEMP 97.2; O2SAT 95
[2024-03-11 09:14] LABS: HEMATOCRIT 30.6 % (42.0-52.0); HEMOGLOBIN 10.1 g/dl (13.5-17.5); MEAN CORPUSCULAR VOLUME 96.8 fl (80.0-96.0); PLATELET COUNT, AUTOMATED 226 10^3/uL (150-450); RED BLOOD COUNT 3.16 10^6/uL (4.30-6.10); WHITE BLOOD COUNT 10.1 10^3/uL (4.0-10.0)
[2024-03-11 09:38] LABS: CALCIUM LEVEL 9.4 MG/DL (8.3-10.6); CREATININE FOR GFR 2.03 MG/DL (0.70-1.30); GLOMERULAR FILTRATION RATE 34.1 (>42); PHOSPHORUS LEVEL 4.1 MG/DL (2.4-5.1); POTASSIUM SERUM 3.9 MMOL/L (3.5-5.1); URIC ACID 4.6 MG/DL (3.7-9.2)
[2024-03-11 11:11] VITALS: BP 108/53; TEMP 97; O2SAT 94
[2024-03-11 21:50] VITALS: BP 118/60; TEMP 96.6
[2024-03-12 04:36] VITALS: BP 116/52; TEMP 97.2
[2024-03-12 06:16] LABS: HEMATOCRIT 31.5 % (42.0-52.0); HEMOGLOBIN 10.4 g/dl (13.5-17.5); MEAN CORPUSCULAR VOLUME 96.9 fl (80.0-96.0); PLATELET COUNT, AUTOMATED 217 10^3/uL (150-450); RED BLOOD COUNT 3.25 10^6/uL (4.30-6.10); WHITE BLOOD COUNT 11.2 10^3/uL (4.0-10.0)
[2024-03-12 06:44] LABS: ALBUMIN 3.1 G/DL (3.2-5.2); CALCIUM LEVEL 9.2 MG/DL (8.3-10.6); CREATININE FOR GFR 2.02 MG/DL (0.70-1.30); GLOMERULAR FILTRATION RATE 34.3 (>42); PHOSPHORUS LEVEL 3.9 MG/DL (2.4-5.1); POTASSIUM SERUM 3.1 MMOL/L (3.5-5.1)
[2024-03-12 07:32] LABS: MAGNESIUM LEVEL 2.3 MG/DL (1.8-2.4)
[2024-03-12] MEDS: TORSEMIDE 100 MG TAB PO SCH (08:20)
[2024-03-12] MEDS: POTASSIUM CHLORIDE 10MEQ SR TABLET PO SCH (10:42)
[2024-03-12 11:41] VITALS: BP 113/52; TEMP 97.3; O2SAT 99
[2024-03-12 19:55] VITALS: BP 113/52; TEMP 97; O2SAT 99
[2024-03-13 04:07] VITALS: BP 110/52; TEMP 97.9; O2SAT 97
[2024-03-13 06:36] LABS: HEMATOCRIT 31.2 % (42.0-52.0); HEMOGLOBIN 10.2 g/dl (13.5-17.5); MEAN CORPUSCULAR HEMOGLOBIN 31.5 pg (27.0-33.0); MEAN CORPUSCULAR HGB CONC 32.7 g/dl (32.0-36.5); MEAN CORPUSCULAR VOLUME 96.3 fl (80.0-96.0); PLATELET COUNT, AUTOMATED 223 10^3/uL (150-450); RED BLOOD COUNT 3.24 10^6/uL (4.30-6.10); WHITE BLOOD COUNT 12.2 10^3/uL (4.0-10.0)
[2024-03-13 06:54] LABS: CALCIUM LEVEL 9.1 MG/DL (8.3-10.6); CREATININE FOR GFR 1.92 MG/DL (0.70-1.30); GLOMERULAR FILTRATION RATE 36.3 (>42); PHOSPHORUS LEVEL 3.6 MG/DL (2.4-5.1); POTASSIUM SERUM 3.9 MMOL/L (3.5-5.1)
[2024-03-13 07:49] LABS: C REACTIVE PROTEIN QUANTITATIV 2.9 MG/DL (<1.0)
[2024-03-13 11:56] VITALS: BP 113/52; TEMP 97.5; O2SAT 99
[2024-03-13] MEDS ORDERED: TORS100T PO (12:11)
[2024-03-13] MEDS ORDERED: ALDA25TA2 PO (12:11)
[2024-03-13 19:51] VITALS: BP 118/84; TEMP 97.2; O2SAT 98
[2024-03-14 04:00] VITALS: BP 116/54; TEMP 97.3; O2SAT 96
[2024-03-14] MEDS ORDERED: CEFD1CAP9 PO ×2 (04:37→10:16)
[2024-03-14 07:03] LABS: HEMATOCRIT 31.3 % (42.0-52.0); HEMOGLOBIN 10.2 g/dl (13.5-17.5); MEAN CORPUSCULAR HEMOGLOBIN 31.2 pg (27.0-33.0); MEAN CORPUSCULAR HGB CONC 32.6 g/dl (32.0-36.5); MEAN CORPUSCULAR VOLUME 95.7 fl (80.0-96.0); PLATELET COUNT, AUTOMATED 224 10^3/uL (150-450); RED BLOOD COUNT 3.27 10^6/uL (4.30-6.10); WHITE BLOOD COUNT 12.6 10^3/uL (4.0-10.0)
[2024-03-14 07:28] LABS: ALBUMIN 3.1 G/DL (3.2-5.2); CALCIUM LEVEL 9.5 MG/DL (8.3-10.6); CREATININE FOR GFR 1.86 MG/DL (0.70-1.30); GLOMERULAR FILTRATION RATE 37.7 (>42); PHOSPHORUS LEVEL 3.5 MG/DL (2.4-5.1); POTASSIUM SERUM 3.8 MMOL/L (3.5-5.1)
[2024-03-14 07:35] LABS: PROCALCITONIN 0.15 ng/ml
[2024-03-14 12:00] VITALS: BP 124/61; TEMP 97.7; O2SAT 99
== END 2024-03-14 14:00 | disposition home health service (06) | DRG 682 ==
LOC: M ED 09:04 → EDBD 09:04 → M ED INP 13:48 → M MS5PR 21:00
PROVIDERS: ADMIT General Practice; ATTEND Internal Medicine
DX: N17.9 Acute kidney failure, unspecified (principal); I50.23 Acute on chronic systolic (congestive) heart failure; I13.0 Hypertensive heart and chronic kidney disease with heart failure and stage 1 through stage 4 chronic kidney disease, or unspecified chronic kidney disease; D68.32 Hemorrhagic disorder due to extrinsic circulating anticoagulants; R04.0 Epistaxis; I27.20 Pulmonary hypertension, unspecified; E11.22 Type 2 diabetes mellitus with diabetic chronic kidney disease; E78.5 Hyperlipidemia, unspecified; E11.51 Type 2 diabetes mellitus with diabetic peripheral angiopathy without gangrene; N18.30 Chronic kidney disease, stage 3 unspecified; R31.0 Gross hematuria; Z86.73 Personal history of transient ischemic attack (TIA), and cerebral infarction without residual deficits; I48.0 Paroxysmal atrial fibrillation; Z79.01 Long term (current) use of anticoagulants; D50.9 Iron deficiency anemia, unspecified; M19.90 Unspecified osteoarthritis, unspecified site; M54.50 Low back pain, unspecified; M10.9 Gout, unspecified; K74.60 Unspecified cirrhosis of liver; I25.5 Ischemic cardiomyopathy; Z88.8 Allergy status to other drugs, medicaments and biological substances; Z79.899 Other long term (current) drug therapy; Z79.82 Long term (current) use of aspirin; Z95.0 Presence of cardiac pacemaker; Z87.891 Personal history of nicotine dependence

== ENCOUNTER 2024-03-16 00:43 | Inpatient (IN) | payer OTHER ==
[~2024-03-16] VITALS: Ht 165.1 cm; Wt 103.4 kg
[~2024-03-16 00:43] MED LIST changes: +ACET-840 PO; +CEFD1CAP9 PO; +FERR324T2 PO; +TORS100T PO
[2024-03-16 01:30] LABS: BASO # 0.1 10^3/uL (0.0-0.2); BASO % 0.4 % (0.0-1.0); EOS # 0.8 10^3/uL (0.0-0.5); EOS % 5.7 % (0.0-3.0); HEMATOCRIT 28.6 % (42.0-52.0); HEMOGLOBIN 9.4 g/dl (13.5-17.5); LYMPH # 0.7 10^3/uL (1.5-5.0); LYMPH % 4.9 % (24.0-44.0); MEAN CORPUSCULAR HEMOGLOBIN 32.2 pg (27.0-33.0); MEAN CORPUSCULAR HGB CONC 32.9 g/dl (32.0-36.5); MEAN CORPUSCULAR VOLUME 97.9 fl (80.0-96.0); MONO # 1.3 10^3/uL (0.0-0.8); MONO % 9.2 % (2.0-8.0); NEUTROPHILS # 10.9 10^3/uL (1.5-8.5); NEUTROPHILS % 79.1 % (36.0-66.0); PLATELET COUNT, AUTOMATED 198 10^3/uL (150-450); RED BLOOD COUNT 2.92 10^6/uL (4.30-6.10); WHITE BLOOD COUNT 13.7 10^3/uL (4.0-10.0)
[2024-03-16 01:43] LABS: INR 2.32; PARTIAL THROMBOPLASTIN TIME 64.9 SECONDS (24.8-34.2); PROTHROMBIN TIME 24.6 SECONDS (12.5-14.5)
[2024-03-16 01:59] LABS: ETHYL ALCOHOL (ETHANOL) < 0.003 % (0.000-0.010); LIPASE 26 U/L (12-53)
[2024-03-16 02:00] LABS: AMYLASE 45 U/L (30-118); CPK CREATINE PHOSPHOKINASE 59 U/L (46-171)
[2024-03-16 02:01] LABS: ALKALINE PHOSPHATASE 181 U/L (46-116); ALT/SGPT 21 U/L (7.0-40); AST/SGOT 16 U/L (<34); BILIRUBIN,DIRECT 0.8 MG/DL (<0.4); BILIRUBIN,TOTAL 1.4 MG/DL (0.3-1.2); BLOOD UREA NITROGEN 90 MG/DL (9-23); CARBON DIOXIDE LEVEL 30 MMOL/L (20-31); CHLORIDE LEVEL 94 MMOL/L (98-107); CK-MB VALUE MASS < 1.0 NG/ML (<3.6); CREATININE FOR GFR 1.99 MG/DL (0.70-1.30); GLOMERULAR FILTRATION RATE 34.9 (>42); GLUCOSE, FASTING 185 MG/DL (74-106); MB/CK RELATIVE INDEX 1.69 (< OR =4); SODIUM LEVEL 131 MMOL/L (136-145); TOTAL PROTEIN 5.4 G/DL (5.7-8.2)
[2024-03-16] MEDS ORDERED: MED REC IN PROGRESS XX SCH (03:55)
[2024-03-16 04:00] LABS: HEMATOCRIT 27.5 % (42.0-52.0); MEAN CORPUSCULAR HEMOGLOBIN 31.9 pg (27.0-33.0); MEAN CORPUSCULAR HGB CONC 32.7 g/dl (32.0-36.5); MEAN CORPUSCULAR VOLUME 97.5 fl (80.0-96.0); PLATELET COUNT, AUTOMATED 188 10^3/uL (150-450); RED BLOOD COUNT 2.82 10^6/uL (4.30-6.10); WHITE BLOOD COUNT 14.2 10^3/uL (4.0-10.0)
[2024-03-16] MEDS ORDERED: MOM 30ML SUSPENSION UDC PO PRN (04:15)
[2024-03-16] MEDS ORDERED: MAALOX 30 ML SUSP *UDC PO PRN (04:15)
[2024-03-16 04:30] LABS: CK-MB VALUE MASS 1.1 NG/ML (<3.6); MB/CK RELATIVE INDEX 1.66 (< OR =4)
[2024-03-16] MEDS: NS 1,000 ML IV SCH (04:35)
[2024-03-16] MEDS ORDERED: DEXTROSE 50% 50ML SYRINGE IV PRN (04:35)
[2024-03-16] MEDS ORDERED: GLUCOSE 4 GM CHEW PO PRN (04:35)
[2024-03-16] MEDS ORDERED: GLUCAGON INJ 1MG VIAL SC PRN (04:35)
[2024-03-16] MEDS ORDERED: SPIR-10 PO (04:37)
[2024-03-16] MEDS ORDERED: TORS100T PO (04:37)
[2024-03-16] MEDS ORDERED: HOME MED LIST COMPLETE! XX SCH (04:40)
[2024-03-16] MEDS: INSULIN LISPRO (NovoLOG) PER UNIT SC SCH (07:30)
[2024-03-16] MEDS: DOCUSATE SODIUM 100MG CAPSULE PO SCH (09:00)
[2024-03-16] MEDS ORDERED: D5W 1,000 ML IV SCH (09:05)
[2024-03-16] MEDS: LR 1,000 ML IV SCH (12:16)
[2024-03-16] MEDS: MIDODRINE 5 MG TAB PO PRN (14:47)
[2024-03-16] MEDS ORDERED: MIDODRINE 5 MG TAB PO SCH (16:00)
[2024-03-16 17:38] LABS: HEMATOCRIT 27.4 % (42.0-52.0); HEMOGLOBIN 8.9 g/dl (13.5-17.5); MEAN CORPUSCULAR HEMOGLOBIN 31.6 pg (27.0-33.0); MEAN CORPUSCULAR HGB CONC 32.5 g/dl (32.0-36.5); MEAN CORPUSCULAR VOLUME 97.2 fl (80.0-96.0); PLATELET COUNT, AUTOMATED 230 10^3/uL (150-450); RED BLOOD COUNT 2.82 10^6/uL (4.30-6.10); WHITE BLOOD COUNT 16.4 10^3/uL (4.0-10.0)
[2024-03-16 17:44] VITALS: BP 98/46; TEMP 97.5; O2SAT 97
[2024-03-16 17:48] LABS: CALCIUM LEVEL 8.7 MG/DL (8.3-10.6); CREATININE FOR GFR 1.84 MG/DL (0.70-1.30); GLOMERULAR FILTRATION RATE 38.2 (>42); POTASSIUM SERUM 3.6 MMOL/L (3.5-5.1)
[2024-03-16] MEDS: LR 500 ML IV ONE (18:05)
[2024-03-16] MEDS ORDERED: VANCOMYCIN/WATER FOR INJ 750 MG in IV 1 EA IV SCH (18:15)
[2024-03-16 19:47] VITALS: BP_SYST 111; BP_SYST 87; BP_SYST 88; BP_DIAS 49; BP_DIAS 53; BP_DIAS 73; TEMP 97.5; O2SAT 96
[2024-03-16] MEDS ORDERED: cefTRIAXone SOD 1 GM in DEXTROSE 5% (D5W) ADV/MINI-BAG 50 ML IV SCH (20:00)
[2024-03-16] MEDS: PIPERACILLIN/TAZOBACTAM SOD 3.375 GM in DEXTROSE 5% (D5W) ADV/MINI-BAG 50 ML IV SCH (20:22)
[2024-03-16] MEDS: ATORVASTATIN 20 MG TAB PO SCH (20:34)
[2024-03-16 21:04] LABS: APPEARANCE, URINE CLEAR (CLEAR); BACTERIA, URINE AUTO NEGATIVE (NEGATIVE); BILIRUBIN, URINE AUTO NEGATIVE (NEGATIVE); BLOOD, URINE BLOOD 1+ (NEGATIVE); COLOR, URINE YELLOW (YELLOW); GLUCOSE, URINE (UA) AUTO NEGATIVE (NEGATIVE); KETONE, URINE AUTO NEGATIVE (NEGATIVE); LEUKOCYTE ESTERASE, URINE AUTO NEGATIVE (NEGATIVE); MUCUS, URINE SMALL (NEGATIVE); NITRITE, URINE AUTO NEGATIVE (NEGATIVE); PROTEIN, URINE AUTO NEGATIVE (NEGATIVE); RBC, URINE AUTO 5 /HPF (0-3); SPECIFIC GRAVITY URINE AUTO 1.009 (1.002-1.035); SQUAMOUS EPITHELIAL CELL UR AU 0 /HPF (0-6); UROBILINOGEN, URINE AUTO 0.2 mg/dL (0.0-2.0); WBC, URINE AUTO 1 /HPF (0-3)
[2024-03-16 21:24] LABS: AMPHETAMINES LEVEL URINE NEGATIVE (NEGATIVE); BARBITURATES URINE NEGATIVE (NEGATIVE); BENZODIAZEPINES URINE NEGATIVE (NEGATIVE); CANNABINOIDS URINE NEGATIVE (NEGATIVE); COCAINE METABOLITE URINE NEGATIVE (NEGATIVE); METHADONE URINE NEGATIVE (NEGATIVE); OPIATES URINE NEGATIVE (NEGATIVE); PHENCYCLIDINE URINE NEGATIVE (NEGATIVE)
[2024-03-16] MEDS: MIDODRINE 5 MG TAB PO ONE (21:58)
[2024-03-16] MEDS: VANCOMYCIN 2,000 MG/400 ML IV BAG *LOAD IV ONE (22:01)
[2024-03-16 23:06] VITALS: BP 105/48; TEMP 97.3; O2SAT 95
[2024-03-16] MEDS: NS 500 ML IV ONE (23:59)
[2024-03-17] MEDS: TRANEXAMIC ACID 650MG TABLET (LYSTEDA) PO ONE (02:14)
[2024-03-17 02:27] VITALS: BP_SYST 101; BP_SYST 103; BP_SYST 99; BP_DIAS 48; BP_DIAS 49
[2024-03-17 02:30] VITALS: BP 103/48; TEMP 97.3; O2SAT 93
[2024-03-17] MEDS: MIDODRINE 5 MG TAB PO SCH (08:00)
[2024-03-17] MEDS: VANCOMYCIN 1,250 MG/250 ML IV BAG IV SCH (09:53)
[2024-03-17 12:00] VITALS: BP 102/52; TEMP 97.7; O2SAT 98
[2024-03-17 15:00] VITALS: BP 101/42; TEMP 97.3; O2SAT 97
[2024-03-17 17:15] VITALS: BP_SYST 106; BP_SYST 97; BP_SYST 98; BP_DIAS 44; BP_DIAS 45
[2024-03-17] MEDS: ACETAMINOPHEN 325 MG TAB PO PRN (17:38)
[2024-03-17 20:00] VITALS: BP 105/45; TEMP 97.5; O2SAT 99
[2024-03-18] VITALS (8 sets, daily range): BP systolic 101–111; BP diastolic 46–53; TEMP 97.3–97.9; O2SAT 52–99
[2024-03-18 05:58] LABS: BASO # 0.1 10^3/uL (0.0-0.2); BASO % 0.7 % (0.0-1.0); EOS # 1.1 10^3/uL (0.0-0.5); EOS % 9.1 % (0.0-3.0); LYMPH # 0.9 10^3/uL (1.5-5.0); LYMPH % 7.1 % (24.0-44.0); MEAN CORPUSCULAR HEMOGLOBIN 31.6 pg (27.0-33.0); MEAN CORPUSCULAR HGB CONC 32.1 g/dl (32.0-36.5); MEAN CORPUSCULAR VOLUME 98.2 fl (80.0-96.0); MONO # 1.3 10^3/uL (0.0-0.8); MONO % 10.6 % (2.0-8.0); NEUTROPHILS % 71.6 % (36.0-66.0); PLATELET COUNT, AUTOMATED 219 10^3/uL (150-450); RED BLOOD COUNT 2.85 10^6/uL (4.30-6.10); WHITE BLOOD COUNT 12.5 10^3/uL (4.0-10.0)
[2024-03-18 06:25] LABS: CALCIUM LEVEL 8.7 MG/DL (8.3-10.6); CREATININE FOR GFR 2.09 MG/DL (0.70-1.30); GLOMERULAR FILTRATION RATE 32.9 (>42); POTASSIUM SERUM 3.5 MMOL/L (3.5-5.1)
[2024-03-18] MEDS ORDERED: CALCIUM CARBONATE 500 MG CHEW U/D PO PRN (10:45)
[2024-03-18] MEDS: SPIRONOLACTONE 25 MG TAB PO SCH (12:04)
[2024-03-18] MEDS: FUROSEMIDE 100MG/10ML VIAL IV ONE (13:12)
[2024-03-18] MEDS: FERROUS SULFATE 325MG TAB PO SCH (21:08)
[2024-03-19 03:30] VITALS: BP 105/55; TEMP 97.3; O2SAT 91
[2024-03-19 05:40] LABS: BASO # 0.1 10^3/uL (0.0-0.2); BASO % 0.6 % (0.0-1.0); EOS # 0.9 10^3/uL (0.0-0.5); EOS % 7.1 % (0.0-3.0); HEMATOCRIT 26.2 % (42.0-52.0); HEMOGLOBIN 8.6 g/dl (13.5-17.5); LYMPH % 7.9 % (24.0-44.0); MEAN CORPUSCULAR HEMOGLOBIN 32.1 pg (27.0-33.0); MEAN CORPUSCULAR HGB CONC 32.8 g/dl (32.0-36.5); MEAN CORPUSCULAR VOLUME 97.8 fl (80.0-96.0); MONO # 1.4 10^3/uL (0.0-0.8); MONO % 11.1 % (2.0-8.0); NEUTROPHILS % 72.6 % (36.0-66.0); PLATELET COUNT, AUTOMATED 212 10^3/uL (150-450); RED BLOOD COUNT 2.68 10^6/uL (4.30-6.10); WHITE BLOOD COUNT 12.4 10^3/uL (4.0-10.0)
[2024-03-19 06:13] LABS: CALCIUM LEVEL 9.1 MG/DL (8.3-10.6); CREATININE FOR GFR 2.05 MG/DL (0.70-1.30); GLOMERULAR FILTRATION RATE 33.7 (>42); POTASSIUM SERUM 3.5 MMOL/L (3.5-5.1)
[2024-03-19] MEDS: FUROSEMIDE 100MG/10ML VIAL IV SCH ×2 (07:53→18:22)
[2024-03-19 07:54] VITALS: BP 116/47; O2SAT 94
[2024-03-19 11:36] VITALS: BP 117/49; TEMP 97.9; O2SAT 99
[2024-03-19] MEDS ORDERED: FARX1TAB5 PO (12:38)
[2024-03-19] MEDS ORDERED: PILL CUTTER 1 EACH XX PRN (12:40)
[2024-03-19] MEDS: DAPAGLIFLOZIN PROPANEDIOL 10MG TABLET (FARXIGA) PO SCH (18:23)
[2024-03-19] MEDS: MECLIZINE 12.5 MG TAB PO PRN (19:23)
[2024-03-19 21:00] VITALS: BP 108/50; TEMP 97.7; O2SAT 97
[2024-03-20 04:47] VITALS: BP 115/69; TEMP 97.9; O2SAT 98
[2024-03-20 05:39] LABS: BASO # 0.1 10^3/uL (0.0-0.2); BASO % 0.6 % (0.0-1.0); EOS # 0.6 10^3/uL (0.0-0.5); HEMATOCRIT 26.8 % (42.0-52.0); HEMOGLOBIN 8.7 g/dl (13.5-17.5); LYMPH % 6.9 % (24.0-44.0); MEAN CORPUSCULAR HEMOGLOBIN 31.4 pg (27.0-33.0); MEAN CORPUSCULAR HGB CONC 32.5 g/dl (32.0-36.5); MEAN CORPUSCULAR VOLUME 96.8 fl (80.0-96.0); MONO # 1.5 10^3/uL (0.0-0.8); MONO % 10.1 % (2.0-8.0); NEUTROPHILS # 11.1 10^3/uL (1.5-8.5); NEUTROPHILS % 77.6 % (36.0-66.0); PLATELET COUNT, AUTOMATED 237 10^3/uL (150-450); RED BLOOD COUNT 2.77 10^6/uL (4.30-6.10); WHITE BLOOD COUNT 14.3 10^3/uL (4.0-10.0)
[2024-03-20 05:50] LABS: CALCIUM LEVEL 9.2 MG/DL (8.3-10.6); CREATININE FOR GFR 1.96 MG/DL (0.70-1.30); GLOMERULAR FILTRATION RATE 35.5 (>42); POTASSIUM SERUM 3.4 MMOL/L (3.5-5.1)
[2024-03-20] MEDS: SPIRONOLACTONE 25 MG TAB PO SCH (08:41)
[2024-03-20 10:19] LABS: PERCENT SATURATION 20.4 % (19.7-50.0)
[2024-03-20 10:32] LABS: FERRITIN 758.6 NG/ML (10.5-307.3)
[2024-03-20 10:33] LABS: FOLATE 11.08 NG/ML (>5.4)
[2024-03-20 11:23] VITALS: BP 131/59; TEMP 97.5; O2SAT 100
[2024-03-20] MEDS: FUROSEMIDE injection 250 MG in D5W 225 ML IV SCH (11:23)
[2024-03-20 16:50] VITALS: BP 130/57
[2024-03-20 20:46] VITALS: BP 128/56; TEMP 97.7; O2SAT 96
[2024-03-21 04:01] VITALS: BP 126/58; TEMP 98.6; O2SAT 97
[2024-03-21 05:30] LABS: BASO # 0.1 10^3/uL (0.0-0.2); BASO % 0.6 % (0.0-1.0); EOS # 0.6 10^3/uL (0.0-0.5); EOS % 4.5 % (0.0-3.0); HEMATOCRIT 25.9 % (42.0-52.0); HEMOGLOBIN 8.5 g/dl (13.5-17.5); LYMPH % 7.6 % (24.0-44.0); MEAN CORPUSCULAR HEMOGLOBIN 31.8 pg (27.0-33.0); MEAN CORPUSCULAR HGB CONC 32.8 g/dl (32.0-36.5); MONO # 1.4 10^3/uL (0.0-0.8); MONO % 11.2 % (2.0-8.0); NEUTROPHILS # 9.5 10^3/uL (1.5-8.5); NEUTROPHILS % 75.3 % (36.0-66.0); PLATELET COUNT, AUTOMATED 233 10^3/uL (150-450); RED BLOOD COUNT 2.67 10^6/uL (4.30-6.10); WHITE BLOOD COUNT 12.6 10^3/uL (4.0-10.0)
[2024-03-21 05:54] LABS: CALCIUM LEVEL 9.1 MG/DL (8.3-10.6); CREATININE FOR GFR 1.86 MG/DL (0.70-1.30); GLOMERULAR FILTRATION RATE 37.7 (>42); POTASSIUM SERUM 3.6 MMOL/L (3.5-5.1)
[2024-03-21] MEDS: D5W IV SCH (10:26)
[2024-03-21] MEDS: FUROSEMIDE IV SCH (10:26)
[2024-03-21 12:00] VITALS: BP 101/58; TEMP 97.5; O2SAT 94
[2024-03-21 20:07] VITALS: BP 104/66; TEMP 97.3; O2SAT 100
[2024-03-22 04:14] VITALS: BP 100/50; TEMP 97.5; O2SAT 98
[2024-03-22 06:30] LABS: BASO # 0.1 10^3/uL (0.0-0.2); BASO % 0.6 % (0.0-1.0); EOS # 0.6 10^3/uL (0.0-0.5); EOS % 5.6 % (0.0-3.0); HEMATOCRIT 27.1 % (42.0-52.0); HEMOGLOBIN 8.7 g/dl (13.5-17.5); LYMPH % 9.3 % (24.0-44.0); MEAN CORPUSCULAR HGB CONC 32.1 g/dl (32.0-36.5); MEAN CORPUSCULAR VOLUME 99.6 fl (80.0-96.0); MONO # 1.4 10^3/uL (0.0-0.8); MONO % 12.3 % (2.0-8.0); NEUTROPHILS # 7.8 10^3/uL (1.5-8.5); NEUTROPHILS % 71.1 % (36.0-66.0); PLATELET COUNT, AUTOMATED 247 10^3/uL (150-450); RED BLOOD COUNT 2.72 10^6/uL (4.30-6.10)
[2024-03-22 06:49] LABS: CALCIUM LEVEL 8.8 MG/DL (8.3-10.6); CREATININE FOR GFR 2.1 MG/DL (0.70-1.30); GLOMERULAR FILTRATION RATE 32.8 (>42); POTASSIUM SERUM 3.8 MMOL/L (3.5-5.1)
[2024-03-22 12:00] VITALS: BP 106/91; TEMP 97.2; O2SAT 100
[2024-03-22] MEDS: metOLazone 5 MG TAB PO ONE (12:22)
[2024-03-22 19:31] VITALS: BP 102/52; TEMP 97.5; O2SAT 98
[2024-03-23 01:18] VITALS: BP 104/67
[2024-03-23 03:46] VITALS: BP 118/66; TEMP 97.3; O2SAT 97
[2024-03-23 06:28] LABS: BASO # 0.1 10^3/uL (0.0-0.2); BASO % 0.7 % (0.0-1.0); EOS # 0.6 10^3/uL (0.0-0.5); EOS % 5.1 % (0.0-3.0); HEMATOCRIT 28.2 % (42.0-52.0); HEMOGLOBIN 9.3 g/dl (13.5-17.5); LYMPH # 1.1 10^3/uL (1.5-5.0); LYMPH % 9.3 % (24.0-44.0); MEAN CORPUSCULAR HEMOGLOBIN 32.1 pg (27.0-33.0); MEAN CORPUSCULAR VOLUME 97.2 fl (80.0-96.0); MONO # 1.3 10^3/uL (0.0-0.8); MONO % 10.6 % (2.0-8.0); NEUTROPHILS # 8.8 10^3/uL (1.5-8.5); NEUTROPHILS % 73.2 % (36.0-66.0); PLATELET COUNT, AUTOMATED 253 10^3/uL (150-450)
[2024-03-23 06:46] LABS: CALCIUM LEVEL 9.2 MG/DL (8.3-10.6); CREATININE FOR GFR 2.14 MG/DL (0.70-1.30); GLOMERULAR FILTRATION RATE 32.1 (>42); POTASSIUM SERUM 3.8 MMOL/L (3.5-5.1)
[2024-03-23 08:39] VITALS: BP 102/61; O2SAT 100
[2024-03-23] MEDS: metOLazone 5 MG TAB PO SCH (09:02)
[2024-03-23 12:00] VITALS: BP 103/60; TEMP 97.5; O2SAT 100
[2024-03-23 15:32] VITALS: BP 105/58
[2024-03-23 19:48] VITALS: BP 120/68; TEMP 97.7; O2SAT 98
[2024-03-24] VITALS (13 sets, daily range): BP systolic 110–133; BP diastolic 56–79; TEMP 94.7–97.7; O2SAT 91–100
[2024-03-24] MEDS ORDERED: NITROGLYCERIN 0.4MG SUBL TABLET SL PRN (05:50)
[2024-03-24] MEDS: MAALOX 30 ML SUSP *UDC PO STA (06:07)
[2024-03-24] MEDS: NITROGLYCERIN 0.4MG SUBL TABLET SL STA (06:08)
[2024-03-24 06:21] LABS: BASO # 0.1 10^3/uL (0.0-0.2); BASO % 0.6 % (0.0-1.0); EOS # 0.5 10^3/uL (0.0-0.5); EOS % 4.2 % (0.0-3.0); HEMATOCRIT 29.7 % (42.0-52.0); HEMOGLOBIN 9.7 g/dl (13.5-17.5); LYMPH # 1.1 10^3/uL (1.5-5.0); MEAN CORPUSCULAR HEMOGLOBIN 31.3 pg (27.0-33.0); MEAN CORPUSCULAR HGB CONC 32.7 g/dl (32.0-36.5); MEAN CORPUSCULAR VOLUME 95.8 fl (80.0-96.0); MONO # 1.1 10^3/uL (0.0-0.8); MONO % 9.8 % (2.0-8.0); NEUTROPHILS # 8.4 10^3/uL (1.5-8.5); NEUTROPHILS % 74.5 % (36.0-66.0); PLATELET COUNT, AUTOMATED 259 10^3/uL (150-450); WHITE BLOOD COUNT 11.2 10^3/uL (4.0-10.0)
[2024-03-24 06:34] LABS: CK-MB VALUE MASS 1.4 NG/ML (<3.6)
[2024-03-24 06:37] LABS: CALCIUM LEVEL 9.6 MG/DL (8.3-10.6); CREATININE FOR GFR 2.32 MG/DL (0.70-1.30); GLOMERULAR FILTRATION RATE 29.2 (>42); MB/CK RELATIVE INDEX 2.37 (< OR =4); POTASSIUM SERUM 3.6 MMOL/L (3.5-5.1)
[2024-03-24 10:14] LABS: CK-MB VALUE MASS 1.6 NG/ML (<3.6)
[2024-03-24 10:16] LABS: MB/CK RELATIVE INDEX 2.53 (< OR =4)
[2024-03-24 11:09] LABS: MAGNESIUM LEVEL 2.2 MG/DL (1.8-2.4)
[2024-03-24] MEDS: PANTOPRAZOLE 40MG VIAL IV SCH (11:30)
[2024-03-24] MEDS: SUCRALFATE SUSP 1GM/10ML UD PO SCH (11:30)
[2024-03-24] MEDS: oxyCODONE 5MG TAB PO ONE (11:30)
[2024-03-24 12:46] LABS: CK-MB VALUE MASS 1.4 NG/ML (<3.6)
[2024-03-24 12:48] LABS: MB/CK RELATIVE INDEX 2.37 (< OR =4)
[2024-03-24] MEDS: DOBUTamine HCL 500,000 MCG in IV 1 EA IV SCH (15:55)
[2024-03-24] MEDS: SODIUM CHLORIDE 0.9% INJ 10 ML SYR IV SCH (18:00)
[2024-03-25] VITALS (10 sets, daily range): BP systolic 95–149; BP diastolic 50–69; TEMP 95.6–96.9; O2SAT 95–100
[2024-03-25 05:24] LABS: HEMATOCRIT 26.6 % (42.0-52.0); HEMOGLOBIN 8.8 g/dl (13.5-17.5); MEAN CORPUSCULAR HEMOGLOBIN 32.1 pg (27.0-33.0); MEAN CORPUSCULAR HGB CONC 33.1 g/dl (32.0-36.5); MEAN CORPUSCULAR VOLUME 97.1 fl (80.0-96.0); PLATELET COUNT, AUTOMATED 212 10^3/uL (150-450); RED BLOOD COUNT 2.74 10^6/uL (4.30-6.10)
[2024-03-25 05:54] LABS: CALCIUM LEVEL 9.1 MG/DL (8.3-10.6); CREATININE FOR GFR 2.33 MG/DL (0.70-1.30); GLOMERULAR FILTRATION RATE 29.1 (>42); MAGNESIUM LEVEL 2.1 MG/DL (1.8-2.4); POTASSIUM SERUM 3.3 MMOL/L (3.5-5.1)
[2024-03-25 05:55] LABS: PERCENT SATURATION 24.3 % (19.7-50.0)
[2024-03-25 05:56] LABS: FERRITIN 821.4 NG/ML (10.5-307.3)
[2024-03-25 05:57] LABS: FREE T4 1.36 NG/DL (0.89-1.76); THYROID STIMULATING HORMONE 2.341 uIU/ML (0.55-4.78)
[2024-03-25] MEDS: POTASSIUM CHLORIDE 10MEQ SR TABLET PO STA (06:43)
[2024-03-25] MEDS: CALCIUM GLUCONATE 1,000 MG in D5W MINI-BAG PLUS 100 ML IV STA (07:18)
[2024-03-25] MEDS: KCL 10MEQ/100ML SWI (KRUN) 10 MEQ in IV 1 EA IV SCH (08:15)
[2024-03-25] MEDS: FERRIC CARBOXYMALTOSE INJ 750 MG, VIAL MATE ADAPTER 1 EACH in NS 100 ML IV ONE (09:35)
[2024-03-25] MEDS: FUROSEMIDE injection 100 MG, VIAL 2 BAG 13MM ADAPTER 1 EACH in D5W 100 ML IV SCH (14:05)
[2024-03-25] MEDS: POTASSIUM CHLORIDE 10MEQ SR TABLET PO ONE (14:06)
[2024-03-25] MEDS: NITROGLYCERIN 0.4MG SUBL TABLET SL PRN (21:25)
[2024-03-25 22:39] LABS: CK-MB VALUE MASS 1.2 NG/ML (<3.6)
[2024-03-25 22:41] LABS: MB/CK RELATIVE INDEX 2.18 (< OR =4)
[2024-03-25 22:43] LABS: CALCIUM LEVEL 9.1 MG/DL (8.3-10.6); CREATININE FOR GFR 2.51 MG/DL (0.70-1.30); GLOMERULAR FILTRATION RATE 26.7 (>42); MAGNESIUM LEVEL 2.1 MG/DL (1.8-2.4); POTASSIUM SERUM 4.2 MMOL/L (3.5-5.1)
[2024-03-26] VITALS (7 sets, daily range): BP systolic 93–144; BP diastolic 55–64; TEMP 96.4–97; O2SAT 96–100
[2024-03-26] MEDS: DICLOFENAC EPOLAMINE 1.3% PATCH TOP SCH ×2 (02:19→12:46)
[2024-03-26 06:35] LABS: HEMATOCRIT 28.8 % (42.0-52.0); HEMOGLOBIN 9.4 g/dl (13.5-17.5); MEAN CORPUSCULAR HEMOGLOBIN 31.9 pg (27.0-33.0); MEAN CORPUSCULAR HGB CONC 32.6 g/dl (32.0-36.5); MEAN CORPUSCULAR VOLUME 97.6 fl (80.0-96.0); PLATELET COUNT, AUTOMATED 237 10^3/uL (150-450); RED BLOOD COUNT 2.95 10^6/uL (4.30-6.10); WHITE BLOOD COUNT 11.8 10^3/uL (4.0-10.0)
[2024-03-26 07:12] LABS: CALCIUM LEVEL 9.3 MG/DL (8.3-10.6); CREATININE FOR GFR 2.56 MG/DL (0.70-1.30); GLOMERULAR FILTRATION RATE 26.1 (>42); MAGNESIUM LEVEL 2.3 MG/DL (1.8-2.4); POTASSIUM SERUM 4.2 MMOL/L (3.5-5.1)
[2024-03-26] MEDS: FUROSEMIDE injection 100 MG, VIAL 2 BAG 13MM ADAPTER 1 EACH in D5W 100 ML IV SCH (08:19)
[2024-03-26] MEDS: CHLOROTHIAZIDE 500MG VIAL IV SCH (09:59)
[2024-03-26] MEDS: POTASSIUM CHLORIDE 10MEQ SR TABLET PO ONE (12:46)
[2024-03-27] VITALS (7 sets, daily range): BP systolic 99–115; BP diastolic 56–67; TEMP 96.8–97.6; O2SAT 97–100
[2024-03-27 05:16] LABS: HEMATOCRIT 30.3 % (42.0-52.0); HEMOGLOBIN 9.9 g/dl (13.5-17.5); MEAN CORPUSCULAR HEMOGLOBIN 31.8 pg (27.0-33.0); MEAN CORPUSCULAR HGB CONC 32.7 g/dl (32.0-36.5); MEAN CORPUSCULAR VOLUME 97.4 fl (80.0-96.0); PLATELET COUNT, AUTOMATED 218 10^3/uL (150-450); RED BLOOD COUNT 3.11 10^6/uL (4.30-6.10); WHITE BLOOD COUNT 12.4 10^3/uL (4.0-10.0)
[2024-03-27] MEDS: CALCIUM GLUCONATE 1,000 MG in D5W MINI-BAG PLUS 100 ML IV STA (05:21)
[2024-03-27] MEDS: AMIODARONE HCL 150 MG in IV 1 EA IV STA (05:24)
[2024-03-27] MEDS: AMIODARONE HCL 360 MG in IV 1 EA IV SCH ×2 (05:35→12:24)
[2024-03-27 05:49] LABS: ALBUMIN 3.1 G/DL (3.2-5.2); CALCIUM LEVEL 9.4 MG/DL (8.3-10.6); CREATININE FOR GFR 2.72 MG/DL (0.70-1.30); GLOMERULAR FILTRATION RATE 24.3 (>42); MAGNESIUM LEVEL 2.3 MG/DL (1.8-2.4); PHOSPHORUS LEVEL 5.1 MG/DL (2.4-5.1)
[2024-03-27] MEDS: MAG SULF 1GM/100ML (MAG RUN) 1 GM in IV 1 EA IV ONE (06:24)
[2024-03-27] MEDS ORDERED: SODIUM CHLORIDE 0.9% INJ 10 ML SYR IV SCH (18:00)
[2024-03-27] MEDS: SODIUM CHLORIDE 0.9% INJ 10 ML SYR IV PRN (18:33)
[2024-03-27] MEDS: PANTOPRAZOLE 40MG TAB (PROTONIX) PO SCH (21:04)
[2024-03-28] VITALS (10 sets, daily range): BP systolic 96–112; BP diastolic 53–58; PULSE 64; TEMP 96.1–97; O2SAT 100
[2024-03-28 06:21] LABS: CALCIUM LEVEL 9.5 MG/DL (8.3-10.6); CREATININE FOR GFR 3.03 MG/DL (0.70-1.30); GLOMERULAR FILTRATION RATE 21.5 (>42); HEMATOCRIT 29.9 % (42.0-52.0); HEMOGLOBIN 9.8 g/dl (13.5-17.5); MAGNESIUM LEVEL 2.5 MG/DL (1.8-2.4); MEAN CORPUSCULAR HEMOGLOBIN 31.8 pg (27.0-33.0); MEAN CORPUSCULAR HGB CONC 32.8 g/dl (32.0-36.5); MEAN CORPUSCULAR VOLUME 97.1 fl (80.0-96.0); PHOSPHORUS LEVEL 5.8 MG/DL (2.4-5.1); PLATELET COUNT, AUTOMATED 200 10^3/uL (150-450); RED BLOOD COUNT 3.08 10^6/uL (4.30-6.10); WHITE BLOOD COUNT 11.2 10^3/uL (4.0-10.0)
[2024-03-28] MEDS: AMIODARONE 200 MG TAB (PACERONE) PO SCH (20:45)
[2024-03-28] MEDS: LIDOCAINE 5% (LIDODERM) PATCH TD SCH (21:00)
== END 2024-03-29 05:25 | disposition expired | DRG 291 ==
LOC: M ED 00:43 → M ED INP 00:44 → M MSPAV 17:20 → OBSVTOIN 03-17 10:42 → M PCU 03-24 08:50
PROVIDERS: ADMIT Internal Medicine; ATTEND Internal Medicine Nephrology
PROC: 02HV33Z Insertion of Infusion Device into Superior Vena Cava, Percutaneous Approach (ICD-10-PCS; principal; 2024-03-24)
DX: I13.0 Hypertensive heart and chronic kidney disease with heart failure and stage 1 through stage 4 chronic kidney disease, or unspecified chronic kidney disease (principal); I50.23 Acute on chronic systolic (congestive) heart failure; I48.20 Chronic atrial fibrillation, unspecified; N17.9 Acute kidney failure, unspecified; L97.919 Non-pressure chronic ulcer of unspecified part of right lower leg with unspecified severity; L97.929 Non-pressure chronic ulcer of unspecified part of left lower leg with unspecified severity; I47.20 Ventricular tachycardia, unspecified; E87.1 Hypo-osmolality and hyponatremia; R18.8 Other ascites; I27.20 Pulmonary hypertension, unspecified; I25.119 Atherosclerotic heart disease of native coronary artery with unspecified angina pectoris; E11.22 Type 2 diabetes mellitus with diabetic chronic kidney disease; Z95.9 Presence of cardiac and vascular implant and graft, unspecified; K74.60 Unspecified cirrhosis of liver; D50.9 Iron deficiency anemia, unspecified; E11.51 Type 2 diabetes mellitus with diabetic peripheral angiopathy without gangrene; N18.32 Chronic kidney disease, stage 3b; Z95.1 Presence of aortocoronary bypass graft; E78.5 Hyperlipidemia, unspecified; I95.9 Hypotension, unspecified; E66.01 Morbid (severe) obesity due to excess calories; Z68.39 Body mass index [BMI] 39.0-39.9, adult; R29.6 Repeated falls; G47.33 Obstructive sleep apnea (adult) (pediatric); E87.6 Hypokalemia; I49.01 Ventricular fibrillation; D63.1 Anemia in chronic kidney disease; S01.01XA Laceration without foreign body of scalp, initial encounter; R33.9 Retention of urine, unspecified; I25.5 Ischemic cardiomyopathy; I34.0 Nonrheumatic mitral (valve) insufficiency; I07.1 Rheumatic tricuspid insufficiency; R58 Hemorrhage, not elsewhere classified; R57.0 Cardiogenic shock; Z86.73 Personal history of transient ischemic attack (TIA), and cerebral infarction without residual deficits; W18.30XA Fall on same level, unspecified, initial encounter; Y92.009 Unspecified place in unspecified non-institutional (private) residence as the place of occurrence of the external cause; Z66 Do not resuscitate; Z51.5 Encounter for palliative care